=== PATIENT | female | born 1985 | race Caucasian/White ===

== ENCOUNTER → 2019-07-01 16:34 | Outpatient (CLI) | payer OTHER, SELFPAY ==
[2019-07-01 17:01] LABS: Basophils # 0.1 K/mm3 (0-0.2); Basophils % 0.7 % (0.1-2.0); Eosinophils # 0.1 K/mm3 (0.0-0.4); Eosinophils % 1.2 % (0.1-12.0); Hematocrit 42.5 % (37.0-47.0); Hemoglobin 14.3 g/dL (12.2-16.2); Lymphocytes # 2.5 K/mm3 (0.7-4.5); Lymphocytes % 36.1 % (10-50); Mean Corpuscular HGB Conc 33.6 g/dL (31.8-35.4); Mean Corpuscular Hemoglobin 30.2 pg (27.0-31.2); Mean Corpuscular Volume 89.7 fl (81-99); Mean Platelet Volume 8.3 fl (7.4-10.4); Monocytes # 0.4 K/mm3 (0.1-1.0); Monocytes % 6.4 % (1.7-9.3); Neutrophils # 3.8 K/mm3 (1.8-7.8); Neutrophils % 55.5 % (37.0-80.0); Platelet Count 277 K/mm3 (142-424); Red Blood Count 4.74 M/mm3 (4.20-5.40); Red Cell Distribution Width 12.2 % (11.5-17.5); White Blood Count 6.8 K/mm3 (4.8-10.8)
[2019-07-01 20:57] LABS: Alanine Aminotransferase 26 U/L (12-78); Albumin Level 4.2 gm/dL (3.4-5.0); Albumin/Globulin Ratio 1.3 (1.1-1.8); Alkaline Phosphatase 89 U/L (46-116); Aspartate Amino Transferase 19 U/L (15-37); Bilirubin,Total 0.3 mg/dL (0.2-1.0); Blood Urea Nitrogen 14 mg/dL (7-18); Calcium 9.2 mg/dL (8.5-10.1); Carbon Dioxide 25 mmol/L (21.0-32.0); Chloride 103 mmol/L (98-107); Chol/HDL Ratio 4.6 (1-3.5); Cholesterol 195 mg/dL (140-200); Creatinine,Serum 0.77 mg/dL (0.55-1.02); Estimated Glomerular Filt Rate 85 ml/min (>60); GFR (African American) 103 ML/MIN (>60); Globulin 3.3 gm/dl (1.3-3.2); Glucose 86 mg/dL (74-106); HDL Cholesterol 42 mg/dL (29-89); LDL Cholesterol 118 mg/dL (0-130); Sodium 140 mmol/L (136-145); T4 (Thyroxine) 9.4 ug/dl (4.7-13.3); Thyroid Stimulating Hormone 1.06 uIU/ml (0.358-3.740); Total Protein,Serum 7.5 gm/dL (6.4-8.2); Triglycerides 174 mg/dL (30-200); VLDL Cholesterol 35 mg/dL (0-40)
[2019-07-03 06:14] LABS: Vitamin D 25 Hydroxy 20.4 ng/mL (30.0-100.0)
== END ==
PROVIDERS: Visit Provider Physician Assistant
DX: F41.9 Anxiety disorder, unspecified (principal)
CPT/HCPCS: 80053; 80061; 82652; 84436; 84443; 85025

== ENCOUNTER 2019-07-17 08:00 | Outpatient (RCR) | payer OTHER, SELFPAY ==
--- NOTE | 2019-07-17 08:55 | HMH.PTOPEV ---
PT Outpatient Evaluation Rehab PT Outpatient Evaluation Start: 07/17/19 08:10 Freq: Status: Active Protocol: Document 07/17/19 08:41 LETICIA (Rec: 07/17/19 08:55 LETICIA [id number]) Electronically Signed By Gustavo Nguyen, PT 07/17/19 08:41 Outpatient Therapy Subjective History Subjective History Patient is a 34 year old female presenting to outpatient PT with reports of chronic low back pain starting approximately 10 years ago. 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 Symptoms have progressively gotten worse over the past 2 months. Pt reports elevated pain levels upon rising in the morning. She reports that she had an abdominal CT which revealed something bad in her lower back. Orders indicate possible spondylolisthesis. Unable to acces imaging at this time. Comorbidities include hx of depression/anxiety and tubal ligation. Chief Complaint Pain,Paresthesia Symptom Type Sharp,Numbness,Tingling Symptoms Relieved By Heat Symptoms Aggravated By Walking Prior Functional Limitations None Current Functional Limitations Lifting,Housework,Sleeping, Standing,Squatting,Walking Symptom Description Constant but Variable Level of pain today (0-10) 1 Pain scale - at its best (0-10) 1 Pain scale - at its worst (0-10) 6 Lumbopelvic Eval Posture Thoracic Spine Posture Standing Position Increased Kyphosis Lumbar Spine Posture Standing Position Increased Lordosis Assistive device Assistive Devices None / NA Palapation tenderness left Lumbar/Sacral Palpation Findings Tenderness Lumbar/Sacral Palpation Overall Comment PSIS 2/4 right paraspinal tenderness Yes: 2/4 Accessory Movement L4 bilateral L5 bilateral S1 bilateral Range of Motion Lumbar Spine Active Flexion Range of WFL Motion (degrees) Lumbar Spine Active Extension Range of WFL Motion (degrees) Left Lumbar Spine Lateral Flexion Active 15 Range of Motion (degrees) Right Lumbar Spine Lateral Flexion
== END 2019-07-17 08:05 | disposition home or self-care (01) ==
LOC: PT 08:00
PROVIDERS: Visit Provider Physician Assistant
DX: M54.5 Low back pain (principal)
CPT/HCPCS: 97163

== ENCOUNTER → 2020-05-23 19:47 | Outpatient (CLI) | payer OTHER, SELFPAY | PROVIDERS: Visit Provider Nurse Practitioner Family | DX: Z03.818 Encounter for observation for suspected exposure to other biological agents ruled out (principal) | CPT/HCPCS: U0003 ==

== ENCOUNTER 2020-11-05 15:55 | Emergency (ER) | payer OTHER, SELFPAY ==
[2020-11-05 16:05] VITALS: BP 126/85; PULSE 72; RESP 20; TEMP 36.9; O2SAT 100; BMI 27.3
--- NOTE | 2020-11-05 16:29 | HMH.EDUTC ---
[facility] [place] Clinical Impression: Exposure to COVID-19 virus Disposition: Home, Self-Care Condition on Discharge: Good Instructions: Preventing the Spread of Coronavirus Discharge Instructions Prescriptions: Ondansetron [Ondansetron Odt 8mg Tab] 8 mg PO TID PRN 10 Days #30 tab PRN Reason: Nausea Transmission Status: Pending to [id number] Referrals: PCP,No [Primary Care Provider] - Time of Disposition: 16:31 Medical Decision Making - Amauri Inquiry Pt receiving controlled substance: No Vital Signs: 11/05/20 16:05 Temperature 98.4 F Temperature Source Oral Pulse Rate [Right Brachial] 72 Respiratory Rate 20 Blood Pressure [Right Arm] 126/85 Blood Pressure Mean [Right Arm] 98 Blood Pressure Source [Right Arm] Automatic Cuff Blood Pressure Position [Right Arm] Sitting 02 Sat by Pulse Oximetry 100 Oxygen Delivery Method Room Air Orders (Tests/Meds): ORDERS Category Date Time Status Covid-19 Nasal PCR ([facility]) Routine Lab 11/05/20 16:08 Received [facility] [place] HPI - General Stated complaint: covid test Time Seen by Provider: 11/05/20 16:29 Mode of Arrival: Ambulatory Source of Information: Patient Limitations: No Limitations Description of Symptoms (Recalled from Triage Doc. by RN): COVID TEST D/T EXPOSURE. C/O HEADACHE, DIARRHEA, NAUSEA, DIZZINESS AND WEAKNESS X 2 DAYS HEENT Symptoms (Recalled from RN notes): No Resp Symptoms (Recalled from RN notes): No Skin Symptoms (Recalled from RN notes): No MS Symptoms (Recalled from RN notes): No Functional Status (Recalled from RN notes): WNL - History of Present Illness Provider Complaint: Exposed to COVID19 last week at work. Has felt tired for the past few days. Today has headache, fatigue, body aches, nausea. No fever. No vomiting or diarrhea. Onset (ago): day(s) (1) Relieving factors: none Exacerbating factors: none Associated symptoms: denies other symptoms Treatments prior to arrival: none - Related Data Home Medications Medication Instructions Recorded Confirmed Ergocalciferol (Vitamin D2) 50,000 unit PO QWEEK 09/09/19 09/10/19 [Drisdol] Previous Rx's Medication Instructions Recorded amoxicillin 500 mg capsule 500 mg PO Q12H 10 Days #20 cap 09/10/19 Ondansetron [Ondansetron Odt 8mg 8 mg PO TID PRN 10 Days #30 tab 11/05/20 Tab] Allergies Allergy/AdvReac Type Severity Reaction Status Date / Time No Known Allergies Allergy Verified 09/10/19 16:56 - Worker's Comp Is this a Worker's Comp case?: No [facility] History - Hepatitis A Screen Drug use history?: No High risk sexual behaviors?: No History of sexually transmitted infection?: No Currently employed?: No Childcare worker?: No Do you have indoor plumbing?: Yes Do you have electricity?: Yes Attestation statement:: This patient has been screened for Hepatitis A risk factors. I have reviewed the patient's past medical history: Yes Medical History: Reports:: Anxiety, Depression Denies:: Diabetes Mellitus Type 1, Diabetes Mellitus Type 2 Other Surgeries: Yes: No Previous Surgery, Tubal Ligation Amputation: No Fractures: No - Social History Smoking Status: Current every day smoker Tobacco Type: cigarettes # Packs/Day (cigarettes): 1 Alcohol Intake: never Substance Use Type: denies use Occupational Status: unemployed Housing: house Household Members: family, spouse - Psychiatric History Pschychiatric History:: Reports:: Anxiety, Attention Deficit Disorder, Depression Family Hx:: Coronary Artery Disease, Hypertension ROS Obtained: Yes All systems reviewed & no additional complaints - Constitutional Constitutional: Reports body ache, Reports chills, Reports headache(s), Reports malaise - Gastrointestinal Gastrointestingal: Reports: nausea Physical Exam - General General appearance: alert, in no apparent distress - Head Head exam: normocephalic - Eye Eye exam: Present: PERRL - ENT ENT exam: Present: normal orophar
[2020-11-05 16:34] VITALS: BP 126/85; PULSE 72; RESP 20; TEMP 36.9; O2SAT 100
--- NOTE | 2020-11-06 10:26 | PC.NURSE ---
pt notified of positive covid result
== END 2020-11-05 16:38 | disposition home or self-care (01) ==
PROVIDERS: Emergency Provider Physician Assistant
DX: U07.1 COVID-19 (principal); F41.8 Other specified anxiety disorders; F17.210 Nicotine dependence, cigarettes, uncomplicated
CPT/HCPCS: 99202; G0463; U0003

== ENCOUNTER → 2021-02-07 10:10 | Outpatient (CLI) | payer OTHER, SELFPAY ==
[2021-02-07 10:35] LABS: Basophils # 0.1 K/mm3 (0-0.2); Basophils % 1.2 % (0.1-2.0); Eosinophils # 0.1 K/mm3 (0.0-0.4); Eosinophils % 1.2 % (0.1-12.0); Hematocrit 47.2 % (37.0-47.0); Hemoglobin 15.7 g/dL (12.2-16.2); Lymphocytes # 2.4 K/mm3 (0.7-4.5); Lymphocytes % 28.6 % (10-50); Mean Corpuscular HGB Conc 33.3 g/dL (31.8-35.4); Mean Corpuscular Hemoglobin 30.6 pg (27.0-31.2); Mean Corpuscular Volume 91.8 fl (81-99); Mean Platelet Volume 8.2 fl (7.4-10.4); Monocytes # 0.4 K/mm3 (0.1-1.0); Monocytes % 4.5 % (1.7-9.3); Neutrophils # 5.4 K/mm3 (1.8-7.8); Neutrophils % 64.5 % (37.0-80.0); Platelet Count 250 K/mm3 (142-424); Red Blood Count 5.14 M/mm3 (4.20-5.40); Red Cell Distribution Width 12.9 % (11.5-17.5); White Blood Count 8.4 K/mm3 (4.8-10.8)
[2021-02-07 10:45] LABS: Chloride 107 mmol/L (98-107)
[2021-02-07 10:46] LABS: Potassium 4.3 mmoL/L (3.5-5.1); Sodium 141 mmol/L (136-145)
[2021-02-07 10:48] LABS: Alanine Aminotransferase 16 U/L (12-78); Anion Gap 13.3 mEq/L (5-15); Aspartate Amino Transferase 25 U/L (14-36); Bilirubin,Unconjugated 0.2 mg/dL (0.0-1.1); Blood Urea Nitrogen 16 mg/dl (7-17); Carbon Dioxide 25 mmol/L (22.0-30.0); Estimated Glomerular Filt Rate 94 ml/min (>60); GFR (African American) 114 ML/MIN (>60)
[2021-02-07 10:49] LABS: Alkaline Phosphatase 81 U/L (38-126); Bilirubin,Direct 0.2 mg/dl (0.0-0.4); Bilirubin,Indirect 0.2 mg/dL (0.0-0.9); Bilirubin,Total 0.4 mg/dl (0.2-1.3); Calcium 9.9 mg/dl (8.4-10.2); Chol/HDL Ratio 4.5 (1-3.5); Cholesterol 222 mg/dl (140-200); Glucose 102 mg/dl (74-100); HDL Cholesterol 49 mg/dl (40-60); Total Protein,Serum 8.3 g/dl (6.3-8.2); Triglycerides 183 mg/dl (30-150); VLDL Cholesterol 37 mg/dL (0-40)
[2021-02-07 11:00] LABS: Direct LDL Cholesterol 125.31 mg/dL (100-129)
[2021-02-07 11:20] LABS: Thyroid Stimulating Hormone 1.58 uIU/mL (0.465-4.68)
[2021-02-07 11:28] LABS: Free T4 (Free Thyroxine) 1.06 ng/dl (0.78-2.19)
== END ==
PROVIDERS: Visit Provider Physician Assistant
DX: R07.89 Other chest pain (principal); R06.00 Dyspnea, unspecified; R00.2 Palpitations; I11.9 Hypertensive heart disease without heart failure; E11.9 Type 2 diabetes mellitus without complications; F17.200 Nicotine dependence, unspecified, uncomplicated; F32.1 Major depressive disorder, single episode, moderate; F41.9 Anxiety disorder, unspecified; Z82.49 Family history of ischemic heart disease and other diseases of the circulatory system; Z86.16 Personal history of COVID-19
CPT/HCPCS: 36415; 80048; 80061; 80076; 84439; 84443; 85025; 93225; 93226

== ENCOUNTER → 2021-02-28 09:04 | Outpatient (CLI) | payer OTHER, SELFPAY ==
--- NOTE | 2021-02-28 | CA_ITS ---
APPROVED REPORT Exam: Exercise Treadmill Technologist: Shayy Corrigan, Ht: 5 ft 1 in Wt: 154 lbs BSA: 1.69 m2 HR: 65 bpm BP: 131/78 mmHg Stress Test Details Test: Last HR Resting HR: 78 bpm Max Heart Rate (APMHR): 183 bpm Max HR Achieved: 171 bpm Target HR (85% APMHR): 155 bpm % of APMHR: 93 Recovery HR: 89 bpm BP Resting BP: 129/77 mmHg Max BP: 160/98 mmHg Recovery BP: 117.0/70.0 mmHg ECG Medications Administered Aminophylline ( mg at ) Clinical Exercise duration: 09:05 min Highest Stage Achieved: Exercise capacity: 10.1 METs Stress ECG Conclusion Test stopped due to: Leg fatigue Symptoms: SOA is noted, leg fatigue, no chest pain Arrhythmias/Ectopy: PVC's noted ST-T Changes: <1.[address] segment changes,normal GXT Test Summary REST . . . . . . . Sitting REST . . . . . . . Standing REST 09:51 0.0 0.0 78 . 129/ 77 . . Stage 1 01:00 10.0 1.7 104 . . . . Stage 1 02:00 10.0 1.7 111 . . . . Stage 1 03:00 10.0 1.7 105 . 132/ 82 . . Stage 2 01:00 12.0 2.5 122 . . . . Stage 2 02:00 12.0 2.5 129 . . . . Stage 2 03:00 12.0 2.5 130 . 140/ 80 . . Stage 3 01:00 14.0 3.4 151 . . . . Stage 3 02:00 14.0 3.4 168 . . . . Stage 3 03:00 14.0 3.4 169 . 160/ 98 . . Stage 4 00:05 16.0 4.2 170 . . . Stop exercise at 09:05 RECOVERY 01:00 0.0 0.0 123 . . . . RECOVERY 02:00 0.0 0.0 106 . . . . RECOVERY 03:00 0.0 0.0 112 . . . . RECOVERY 04:00 0.0 0.0 91 . 124/ 74 . . RECOVERY 05:00 0.0 0.0 89 . 124/ 74 . . RECOVERY 05:34 0.0 0.0 86 . 117/ 70 . . Electronically signed by : Kwan Weller, 02/28/2021 19:02:48
--- NOTE | 2021-02-28 09:09 | CA_ITS ---
APPROVED REPORT EXAM: Comprehensive 2D, Doppler, and color-flow Echocardiogram Produce Sorter: Stephy Troy RVT Ht: 5 ft 1 in Wt: 154lbs BSA: 1.69 BP: 135/81 mmHg Indications: SOA,HX COVID,PALPS,SMOKER,ABN EKG Stress Test Details HR Max Heart Rate (APMHR): 183.293039 bpm Target HR (85% APMHR): 155.582671 bpm BP ECG Conclusion 1. The EKG portion of the exercise stress echo is negative for ischemia, patient has good exercise capacity achieved 10.1 METs of workload on treadmill, the blood pressure response to exercise was adequate, there was no exercise induced chest discomfort. 2. No obvious echocardiographic evidence of segmental wall motion abnormality with exercise to suggest underlying ischemic heart disease, preserved left ventricular systolic function. 3. Normal exercise stress echo. Electronically signed by : Kwan Weller, 02/28/2021 19:13:53
--- NOTE | 2021-02-28 09:09 | CA_ITS ---
APPROVED REPORT EXAM: Comprehensive 2D, Doppler, and color-flow Echocardiogram Online Media Director: Stephy Troy RVT Ht: 5 ft 1 in Wt: 154lbs BSA: 1.69 BP: 135/81 mmHg Indications: SOA,HX COVID,ABN EKG,SMOKER,PALPS 2D Dimensions LVOT 1.77 cm (M/F) 1.5-2.5 LA Volume 16.30 mL LA Volume Index 9.64 mL/m2 (M/F) 16-34 M-Mode Dimensions RVDd 2.26 cm (0.9-2.6) LA Diam 3.21 cm (1.9-4.0) LVDd 3.91 cm (3.5-5.7) Ao Diam 2.43 cm (2.0-3.7) LVDs 2.81 cm (3.5-5.7) IVSd 0.67 cm (0.6-1.1) PWd 0.55 cm (0.6-1.1) EF (Teich) 55.10% FS 28.10% EDV (Teich) 66.30 mL TAPSE 2.33 (<1.7) ESV (Teich) 29.80 mL LV Diastology E Decel Time 227.00 (160-240 msec) E/A Ratio 1.9 MED E' 12.20 (< 7 cm/sec) E'/MED E' Ratio 8.14 (>14) LAT E' 17.70 (<10 cm/sec) E/LAT E' Ratio 5.61 (>14) Aortic Valve AO Peak GR. 5.60 mmHg Mitral Valve MV E Max Lance. 99.00 (40-130 cm/s) MV A Velocity 52.00 (40-130 cm/s) E/A Ratio 1.92 MV Decel. Time 227.00 (160-240 ms) MV PHT 66.00 ms Pulmonary Valve PV Peak Velocity 80.00 (50-150 cm/s) Tricuspid Valve TR P. Velocity 264.00 cm/s RAP Estimate 10.00 mmHg RVSP 38.00 mmHg Left Ventricle Left atrium is normal size, left ventricle is normal size, there is no concentric left ventricular hypertrophy, visually estimated ejection fraction 55% with no regional wall motion abnormality, diastolic parameters are within normal range. Right Ventricle Right atrium and right ventricle are normal size and contractility. Aortic Valve Aortic valve is grossly normal, there is no aortic stenosis or aortic insufficiency. Mitral Valve Mitral valve grossly normal, there is trace mitral regurgitation. Tricuspid Valve Tricuspid grossly normal, there is trace tricuspid regurgitation, tricuspid regurgitation jet velocity is inadequate for calculation of the right ventricular systolic pressure. Pulmonic Valve Pulmonic valve is poorly visualized. Great Vessels Aortic root is normal size. Pericardium No significant pericardial effusion noted. Conclusion 1. Normal left ventricular size, preserved left ventricular systolic function, visually estimated ejection fraction 55% with no regional wall motion abnormality, diastolic parameters are within normal range. 2. Trace mitral and tricuspid regurgitation. 3. No significant pericardial effusion noted. Electronically signed by : Kwan Weller, 02/28/2021 19:16:00
== END ==
PROVIDERS: PCP Physician Assistant; Visit Provider Physician Assistant
DX: R07.89 Other chest pain (principal); R06.00 Dyspnea, unspecified; R00.2 Palpitations; F32.1 Major depressive disorder, single episode, moderate; F41.9 Anxiety disorder, unspecified; F17.200 Nicotine dependence, unspecified, uncomplicated; Z82.49 Family history of ischemic heart disease and other diseases of the circulatory system; Z86.16 Personal history of COVID-19
CPT/HCPCS: 93017; 93306; 93350

== ENCOUNTER → 2021-03-05 18:58 | Outpatient (CLI) | payer OTHER, SELFPAY | PROVIDERS: PCP Physician Assistant; Visit Provider Physician Assistant | DX: G47.9 Sleep disorder, unspecified (principal); R40.0 Somnolence | CPT/HCPCS: 95806 ==

== ENCOUNTER → 2021-06-03 20:16 | Outpatient (CLI) | payer OTHER, SELFPAY | PROVIDERS: Visit Provider Nurse Practitioner Family | DX: Z20.822 Contact with and (suspected) exposure to COVID-19 (principal) | CPT/HCPCS: U0003 ==

== ENCOUNTER 2022-01-27 16:07 | Emergency (ER) | payer OTHER, SELFPAY ==
[2022-01-27 16:10] VITALS: BP 142/99; PULSE 83; RESP 18; TEMP 36.6; O2SAT 99; BMI 25.0
--- NOTE | 2022-01-27 16:27 | HMH.EDUTC ---
[facility] [place] Impression: Headache, Vomiting Disposition: Home, Self-Care Condition on Discharge: Good Instructions: DI for Viral Gastroenteritis -- Adult Additional Instructions: Rest, fluids. I will call with results of upper respiratory panel. Prescriptions: Promethazine HCl 12.5 mg PO TID PRN 5 Days #10 tab PRN Reason: nausea/vomiting Transmission Status: Pending to [facility] Oseltamivir Phosphate [Tamiflu] 75 mg PO BID 5 Days #10 cap Transmission Status: Pending to [facility] Referrals: Mary Carmen Alanis PA [Primary Care Provider] - Forms: Work/School Release Time of Disposition: 16:43 Medical Decision Making - Amauri Inquiry Pt receiving controlled substance: No Vital Signs: 01/27/22 16:10 Temperature 97.9 F Temperature Source Oral Pulse Rate [Right Brachial] 83 Respiratory Rate 18 Blood Pressure [Right Arm] 142/99 H Blood Pressure Mean [Right Arm] 113 Blood Pressure Source [Right Arm] Automatic Cuff Blood Pressure Position [Right Arm] Sitting 02 Sat by Pulse Oximetry 99 Oxygen Delivery Method Room Air - Lab Data Lab results reviewed: Yes: I reviewed the patient's lab results. [facility] [place] - General Stated complaint: dizzy,V/D, Nitin, Time Seen by Provider: 01/27/22 16:37 Mode of Arrival: Ambulatory Source of Information: Patient Limitations: No Limitations Description of Symptoms (Recalled from Triage Doc. by RN): PATIENT C/O DIZZINESS, VOMITING, BODY ACHES, HEADACHE, AND CONGESTION THAT STARTED TODAY HEENT Symptoms (Recalled from RN notes): Yes Resp Symptoms (Recalled from RN notes): No Skin Symptoms (Recalled from RN notes): No MS Symptoms (Recalled from RN notes): No Functional Status (Recalled from RN notes): WNL - History of Present Illness Provider Complaint: Patient went to work this am. Had sudden onset headache, sinus pain and pressure, vomiting and diarrhea. She does not think she has had a fever. Has been exposed to COVID19. Onset (ago): hour(s) (6) Location: head, abdomen Relieving factors: none Exacerbating factors: none Associated symptoms: fever/chills, headaches, malaise, nausea/vomiting Treatments prior to arrival: none - Related Data Previous Rx's Medication Instructions Recorded Oseltamivir Phosphate [Tamiflu] 75 mg PO BID 5 Days #10 cap 01/27/22 Promethazine HCl 12.5 mg PO TID PRN 5 Days #10 tab 01/27/22 Allergies Allergy/AdvReac Type Severity Reaction Status Date / Time No Known Allergies Allergy Verified 06/03/21 17:43 - Worker's Comp Is this a Worker's Comp case?: No [facility] History - Hepatitis A Screen Drug use history?: No High risk sexual behaviors?: No History of sexually transmitted infection?: No Currently employed?: No Childcare worker?: No Do you have indoor plumbing?: Yes Do you have electricity?: Yes Attestation statement:: This patient has been screened for Hepatitis A risk factors. I have reviewed the patient's past medical history: Yes Medical History: Reports:: Anxiety, Depression Denies:: Diabetes Mellitus Type 1, Diabetes Mellitus Type 2 Other Surgeries: Yes: No Previous Surgery, Tubal Ligation Amputation: No Fractures: No - Social History Smoking Status: Current every day smoker Tobacco Type: cigarettes # Packs/Day (cigarettes): 1 Alcohol Intake: never Substance Use Type: denies use Occupational Status: unemployed Housing: house Household Members: family, spouse - Psychiatric History Pschychiatric History:: Reports:: Anxiety, Attention Deficit Disorder, Depression Family Hx:: Non-contributory ROS Obtained: Yes All systems reviewed & no additional complaints - Constitutional Constitutional: Reports body ache, Reports chills, Reports fatigue, Reports fever(s), Reports headache(s) - ENT Ears, Nose, Mouth, and Throat: Reports sore throat - Gastrointestinal Gastrointestingal: Reports: loose stools, vomiting Physical Exam - General General appearance: alert, in no a
[2022-01-27 16:29] LABS: UTC Influenza A Antigen Negative (Negative)
[2022-01-27 16:30] LABS: UTC Influenza B Antigen Negative (Negative)
[2022-01-27 16:52] VITALS: BP 142/99; PULSE 83; RESP 18; TEMP 36.6; O2SAT 99
[2022-01-27 16:53] LABS: Adenovirus,PCR Not Detected (NotDetected); Bordetella Pertussis Not Detected (NotDetected); Chlamydophila Pneumoniae, PCR Not Detected (NotDetected); Coronavirus 19, PCR Not Detected (NotDetected); Coronavirus 229E Not Detected (NotDetected); Coronavirus NL63 Not Detected (NotDetected); Coronavirus OC43 Not Detected (NotDetected); Coronovirus HKU1,PCR Not Detected (NotDetected); Human Metapneumovirus Not Detected (NotDetected); Influenza A, PCR Not Detected (NotDetected); Influenza AH1, 2009 Not Detected (NotDetected); Influenza AH1, PCR Not Detected (NotDetected); Influenza AH3,PCR Not Detected (NotDetected); Influenza B, PCR Not Detected (NotDetected); Mycoplasma Pneumoniae, PCR Not Detected (NotDetected); Parainfluenza 1, PCR Not Detected (NotDetected); Parainfluenza 2, PCR Not Detected (NotDetected); Parainfluenza 3, PCR Not Detected (NotDetected); Parainfluenza 4, PCR Not Detected (NotDetected); Respiratory Syncytial Virus Not Detected (NotDetected); Rhinovirus/Enterovirus Not Detected (NotDetected)
== END 2022-01-27 17:24 | disposition home or self-care (01) ==
PROVIDERS: Emergency Provider Physician Assistant; PCP Physician Assistant
DX: R51.9 Headache, unspecified (principal); R42 Dizziness and giddiness; F41.8 Other specified anxiety disorders; F17.210 Nicotine dependence, cigarettes, uncomplicated
CPT/HCPCS: 87581; 87632; 87798; 87804; 96372; 99213; C9803; G0463; U0003; U0005

== ENCOUNTER → 2022-03-06 13:19 | Outpatient (CLI) | payer OTHER, SELFPAY ==
[2022-03-06 19:23] LABS: Basophils # 0.1 K/mm3 (0-0.2); Basophils % 2.3 % (0.1-2.0); Eosinophils # 0.1 K/mm3 (0.0-0.4); Eosinophils % 0.9 % (0.1-12.0); Hematocrit 42.7 % (37.0-47.0); Lymphocytes # 1.7 K/mm3 (0.7-4.5); Mean Corpuscular HGB Conc 32.8 g/dL (31.8-35.4); Mean Corpuscular Hemoglobin 30.9 pg (27.0-31.2); Mean Corpuscular Volume 94.1 fl (81-99); Mean Platelet Volume 9.8 fl (7.4-10.4); Monocytes # 0.4 K/mm3 (0.1-1.0); Monocytes % 7.8 % (1.7-9.3); Neutrophils # 3.1 K/mm3 (1.8-7.8); Neutrophils % 56.8 % (37.0-80.0); Platelet Count 222 K/mm3 (142-424); Red Blood Count 4.54 M/mm3 (4.20-5.40); Red Cell Distribution Width 13.2 % (11.5-17.5); White Blood Count 5.4 K/mm3 (4.8-10.8)
[2022-03-06 19:32] LABS: Alanine Aminotransferase 18 U/L (12-78); Albumin Level 4.3 g/dl (3.5-5.0); Albumin/Globulin Ratio 1.6 (1.1-1.8); Alkaline Phosphatase 69 U/L (38-126); Anion Gap 12.6 mEq/L (5-15); Aspartate Amino Transferase 26 U/L (14-36); Blood Urea Nitrogen 14 mg/dl (7-17); Calcium 9.8 mg/dl (8.4-10.2); Carbon Dioxide 24 mmol/L (22.0-30.0); Chloride 108 mmol/L (98-107); Chol/HDL Ratio 3.1 (1-3.5); Cholesterol 183 mg/dl (140-200); Estimated Glomerular Filt Rate 94 ml/min (>60); GFR (African American) 113 ML/MIN (>60); Globulin 2.7 g/dL (1.3-3.2); Glucose 102 mg/dl (74-100); HDL Cholesterol 60 mg/dl (40-60); Potassium 4.6 mmoL/L (3.5-5.1); Sodium 140 mmol/L (136-145); Triglycerides 128 mg/dl (30-150); VLDL Cholesterol 26 mg/dL (0-40)
[2022-03-06 19:34] LABS: Bilirubin,Total < 0.1 mg/dl (0.2-1.3)
[2022-03-06 19:43] LABS: Direct LDL Cholesterol 90.14 mg/dL (100-129)
[2022-03-06 19:48] LABS: 25-OH Vitamin D, Total 35.4 ng/mL (30-100)
[2022-03-06 20:03] LABS: Thyroid Stimulating Hormone 1.02 uIU/mL (0.465-4.68)
== END ==
PROVIDERS: PCP Physician Assistant; Visit Provider Physician Assistant
DX: M79.671 Pain in right foot (principal); M79.672 Pain in left foot; Z00.00 Encounter for general adult medical examination without abnormal findings
CPT/HCPCS: 80053; 80061; 82306; 84443; 85025

== ENCOUNTER 2023-09-03 17:09 | Emergency (ER) | payer OTHER, SELFPAY ==
[2023-09-03 17:45] VITALS: BP 133/89; PULSE 79; RESP 18; TEMP 36.8; O2SAT 96; BMI 21.9
--- NOTE | 2023-09-03 18:18 | EXP.UTC ---
Discharge Plan Disposition Patient Disposition: Home, Self-Care Condition: Good Prescriptions Prescriptions: New amoxicillin 500 mg capsule 500 mg PO TID 10 Days Qty: 30 0RF benzonatate 100 mg capsule 100 mg PO TID PRN (Reason: cough) Qty: 20 0RF methylprednisolone [Medrol (Berto)] 4 mg tablets,dose pack See Rx Instructions .Route .COMPLEX 6 Days Qty: 21 0RF Rx Instructions: taper pack; fluticasone propionate [Flonase Allergy Relief] 50 mcg/actuation spray,suspension 1 - 2 spray intranasal DAILY Qty: 16 0RF Rx Instructions: administer into each nostril Referrals Follow up/Referrals: Mary Carmen Alanis PA [Primary Care Provider] - See instructions Activity Restrictions/Add. Instructions Additional Instructions/Restrictions: *Monitor Temp, Over the counter Motrin or Tylenol as directed/as needed Tylenol every 4 hours and Motrin every 6 hours (as long as your family doctor has told you that you can take it) for fever or pain. and straight to ER if unable to lower temp less than 101.0 after medication given *Warm salt water gargles may help to soothe the throat *Throat Lozenges? *Warm fluids like tea with honey may help to soothe the throat? *Sleep elevated *Humidifier/Vaporizer *Flonase 2 sprays in each nostril daily but be aware that it may take 2-3 days before you notice improvement Take medication as prescribed Follow up IMMEDIATELY for new or worsening symptoms or no Noticeable improvement over the next 48-72 hours. 911 for difficulty breathing or swallowing Clinical Impressions Clinical Impression: Otitis media Qualifiers: Otitis media type: unspecified Laterality: right Qualified Code(s): H66.91 - Otitis media, unspecified, right ear Stand Alone Forms Stand Alone Forms: Work/School Release Instructions Patient Instructions: Middle Ear Infection, DI for Nasal Congestion, DI for Sinus Headache Discharge ED Provider: Tanya Kowalski [facility] General Stated complaint: ZELAYA, cough Mode of Arrival: Ambulatory Source of Information: Patient Limitations: No Limitations Time Seen by Provider: 09/03/23 18:18 Description of Symptoms (Recalled from Triage Doc. by RN): PATIENT C/O HEADACHE, NAUSEA, AND COUGH X 3 DAYS HEENT Symptoms (Recalled from RN notes): Yes Resp Symptoms (Recalled from RN notes): Yes Skin Symptoms (Recalled from RN notes): No MS Symptoms (Recalled from RN notes): No Functional Status (Recalled from RN notes): WNL History of Present Illness Provider Complaint: Patient states that she has been having pain in her right ear, sinus pain and pressure, nausea and headache for the last 3-4 days States today her ear was hurting worse so she came in to get checked out Related Data Previous Rx's Medication Instructions Recorded amoxicillin 500 mg capsule 500 mg PO TID 10 days #30 caps 09/03/23 benzonatate 100 mg capsule 100 mg PO TID PRN cough #20 caps 09/03/23 fluticasone propionate 50 1 - 2 spray intranasal DAILY #16 09/03/23 mcg/actuation nasal grams spray,suspension (Flonase Allergy Relief) methylprednisolone 4 mg tablets in See Rx Instructions .Route 09/03/23 a dose pack (Medrol (Berto)) .COMPLEX 6 days #21 tabs Allergies Allergy/AdvReac Type Severity Reaction Status Date / Time No Known Allergies Allergy Verified 03/06/22 13:31 Worker's Comp Is this a Worker's Comp case?: [facility] Dis[facility]: The information contained in this section may have been updated after the patient was seen, as this information can be updated by other users. Medical History (Updated 09/03/23 @ 18:26 by Tanya Kowalski APRN) Abnormal EKG Anxiety Daytime somnolence Depression Dyspnea Family history of heart disease Family history of transposition of great arteries History of COVID-19 Palpitations Restless sleeper Tobacco dependence syndrome Social History Smoking Status: Current every day smoker tobacco type: c
[2023-09-03 18:25] VITALS: BP 133/89; PULSE 79; RESP 18; TEMP 36.8; O2SAT 96
== END 2023-09-03 18:28 | disposition home or self-care (01) ==
PROVIDERS: Emergency Provider Nurse Practitioner; PCP Physician Assistant
DX: H66.91 Otitis media, unspecified, right ear (principal); J01.90 Acute sinusitis, unspecified; R51.9 Headache, unspecified; R05.9 Cough, unspecified; R11.0 Nausea; F17.210 Nicotine dependence, cigarettes, uncomplicated
CPT/HCPCS: 99212; 99214; G0463

== ENCOUNTER 2023-11-25 14:01 | Emergency (ER) | payer SELFPAY ==
[2023-11-25 14:03] VITALS: BP 149/92; PULSE 107; RESP 18; TEMP 37.4; O2SAT 99; BMI 23.6
[2023-11-25 14:38] LABS: Coronavirus 19, PCR Not Detected (NotDetected); Influenza B, PCR Not Detected (NotDetected)
--- NOTE | 2023-11-25 14:42 | ED_ITS ---
Discharge Plan Disposition Patient Disposition: Home, Self-Care Condition: Fair Prescriptions Prescriptions: New prednisone 20 mg tablet 60 mg PO DAILY 3 Days Qty: 9 0RF oseltamivir [Tamiflu] 75 mg capsule 75 mg PO BID 5 Days Qty: 10 0RF albuterol sulfate 90 mcg/actuation HFA aerosol inhaler 2 inh inhalation Q4H PRN (Reason: shortness of breath or wheezing) Qty: 6.7 0RF No Action amoxicillin 500 mg capsule 500 mg PO TID 10 Days Qty: 30 0RF benzonatate 100 mg capsule 100 mg PO TID PRN (Reason: cough) Qty: 20 0RF methylprednisolone [Medrol (Berto)] 4 mg tablets,dose pack See Rx Instructions .Route .COMPLEX 6 Days Qty: 21 0RF Rx Instructions: taper pack; fluticasone propionate [Flonase Allergy Relief] 50 mcg/actuation spray,suspension 1 - 2 spray intranasal DAILY Qty: 16 0RF Rx Instructions: administer into each nostril Referrals Follow up/Referrals: Mary Carmen Alanis PA [Primary Care Provider] - See instructions Activity Restrictions/Add. Instructions Additional Instructions/Restrictions: At this time it was felt you are safe to be discharged home. If new or worsening symptoms please do not hesitate to return the emergency department. If symptoms persist please follow-up with your family doctor as you are able. Please take your medications as prescribed. It was found that you have a spot on your right lung today as discussed, please follow-up with your family doctor for continued surveillance. Clinical Impressions Clinical Impression: COPD (chronic obstructive pulmonary disease) with acute bronchitis, Influenza A, Incidental pulmonary nodule Instructions Patient Instructions: DI for Acute Bronchitis Discharge ED Provider: Danny Mantilla General Adult HPI <RADHA Cruz - Last Filed: 11/25/23 16:28> General Chief complaint: Upper Respiratory Infection Stated complaint: congestion, cough, dizziness, fever Time Seen by Provider: 11/25/23 14:42 Mode of Arrival: Ambulatory Source of Information: Patient Limitations: No Limitations Description of Symptoms (Recalled from ER Triage Doc. by RN): patient ambulatory to triage with complaints of cough, fever, body aches, and chills since sunday without relief. Reports cough has progressed into chest tightness. History of Present Illness HPI narrative: Patient presents with a 24-hour history of cough that is nonproductive however feels like razor blades drainage and congestion. Patient reports subjective fever but has not taken her temperature at home. Patient is a pack-a-day smoker however is not smoking for 2 days . Patient otherwise denies cardiac chest pain shortness of breath chills hemoptysis hematochezia melena nausea vomiting diarrhea. Related Data Previous Rx's Medication Instructions Recorded amoxicillin 500 mg capsule 500 mg PO TID 10 days #30 caps 09/03/23 benzonatate 100 mg capsule 100 mg PO TID PRN cough #20 caps 09/03/23 fluticasone propionate 50 1 - 2 spray intranasal DAILY #16 09/03/23 mcg/actuation nasal grams spray,suspension (Flonase Allergy Relief) methylprednisolone 4 mg tablets in See Rx Instructions .Route 09/03/23 a dose pack (Medrol (Berto)) .COMPLEX 6 days #21 tabs albuterol sulfate 90 mcg/actuation 2 inh inhalation Q4H PRN shortness 11/25/23 aerosol inhaler of breath or wheezing #6.7 grams oseltamivir 75 mg capsule (Tamiflu) 75 mg PO BID 5 days #10 caps 11/25/23 prednisone 20 mg tablet 60 mg PO DAILY 3 days #9 tabs 11/25/23 Allergies Allergy/AdvReac Type Severity Reaction Status Date / Time No Known Allergies Allergy Verified 03/06/22 13:31 [facility] <RADHA Cruz - Last Filed: 11/25/23 16:28> [facility] Disclaimer: The information contained in this section may have been updated after the patient was seen, as this information can be updated by other users. Medical History (Updated 11/25/23 @ 16:35 by Danny Mantilla MD) Abnormal EKG Anxiety Daytime somnolence Depression Dyspnea Family history of heart disease Family history of transposition of great arteries History of COVID-19 Palpitations Restless sleeper Tobacco dependence syndrome Social History Smoking Status: Current every day smoker tobacco type: cigarettes packs per day: 1 alcohol intake: never substance use type: denies use current occupational status: unemployed Travel in the last 8 weeks: None household members: spouse and family housing: house <RADHA Cruz - Last Filed: 11/25/23 16:28> ROS Obtained: Yes Systems reviewed as appropriate & no additional complaints except as documented Physical Exam <RADHA Cruz - Last Filed: 11/25/23 16:28> Narrative Physical exam: The patient is a well-nourished well-developed 38-year-old female who otherwise is in no acute distress General General appearance: alert and in no apparent distress Head Head exam: atraumatic and normal inspection Eye Eye exam: Present normal appearance, PERRL and EOMI ENT ENT exam: Present normal oropharynx, mucous membranes moist and other (Patient has erythema of the posterior pharynx however there is no exudate or drainage noted) Neck Neck exam: Present normal inspection, full ROM and trachea midline; Absent lymphadenopathy Chest Chest inspection: Present normal inspection and symmetric chest wall rise Respiratory Respiratory exam: Present wheezes and other (Coarse bronchial breath sounds coarse bronchial cough); Absent accessory muscle use Cardiovascular Cardiovascular exam: Present normal rhythm, tachycardia, normal heart sounds, +S1 and +S2 Abdominal Exam Abdominal exam: Present soft and normal bowel sounds; Absent tenderness, guarding or rebound Extremities Exam Extremities exam: Present normal inspection and full ROM Neurological Exam Neurological exam: Present alert, oriented X3 and CN II-XII intact Psychiatric Psychiatric exam: Present normal affect and normal mood Skin Skin exam: Present warm, dry and normal color Lymphatic Lymphatic Findings: no adenopathy Medical Decision Making <RADHA Cruz - Last Filed: 11/25/23 16:28> Medical Records Medical records reviewed: Yes I reviewed the patient's medical records. Amauri Inquiry Pt receiving controlled substance: No Vital Signs: 11/25/23 14:03 Temperature 99.4 F Temperature Source Oral Pulse Rate [Right] 107 H Respiratory Rate 18 Blood Pressure [Right Arm] 149/92 H Blood Pressure Mean [Right Arm] 111 Blood Pressure Source [Right Arm] Automatic Cuff Blood Pressure Position [Right Arm] Sitting 02 Sat by Pulse Oximetry 99 Oxygen Delivery Method Room Air Lab Data Lab results reviewed: Yes I reviewed the patient's lab results. Lab Results 11/25/23 14:10: SARS-CoV-2 (PCR) Not detected, Influenza A Untype (PCR) Detected A, Influenza Type B (PCR) Not detected Orders (Tests/Meds): ED MEDICATIONS Discontinued Medications Generic Name Dose Route Start Last Admin Trade Name Freq PRN Reason Stop Dose Admin Acetaminophen 1,000 mg 11/25/23 16:26 11/25/23 16:33 Acetaminophen 500mg Tab PO 11/25/23 16:27 1,000 mg ONCE ONE Administration Albuterol/Ipratropium 3 ml 11/25/23 15:06 11/25/23 15:26 Ipratropium/Albuterol 3 Ml Neb IH 11/25/23 15:07 3 ml ONCE ONE Administration Dexamethasone Sodium Phosphate 10 mg 11/25/23 15:06 11/25/23 15:25 Dexamethasone 4mg/Ml 1ml Vial IM 11/25/23 15:07 10 mg ONCE ONE Administration ORDERS Category Date Time Status Chest XR -- portable [XR chest portable] Stat Exams 11/25/23 15:06 Completed Rapid PCR Covid and Flu A/B Stat Lab 11/25/23 14:10 Completed Medical Decision Narrative: In summary patient is a 38-year-old female who presents to the emergency department for evaluation of cough congestion fever. Patient is hemodynamically stable upon arrival, low-grade temperature of 99.4. Physical exam reveals coarse bronchial breath sounds along with a coarse bronchial cough no end expiratory wheezes. Examination of oropharynx reveals erythema but no evidence of exudate. No cervical lymphadenopathy.. Differential diagnosis includes viral upper respiratory tract infection versus bacterial plus COPD with acute exacerbation with bronchitis. Initial workup will be conducted with hematologic labs and plain film chest x-ray. Initial interventions include IV steroids and breathing treatment. Initial workup reviewed by me shows influenza A. My personal unofficial interpretation of plain film chest x-ray shows no evidence of infiltrates however does show a right lower lobe nodule that needs follow-up with her PCP. Upon repeat evaluation patient reports subjective improvement in symptoms after breathing treatment and steroids. Given this appropriate for discharge home with prescriptions for doxycycline and a burst dose of steroids. Patient to follow-up with PCP this week or return to the ER if symptoms worsen. <Danny Mantilla MD - Last Filed: 11/25/23 16:36> Vital Signs: 11/25/23 14:03 Temperature 99.4 F Temperature Source Oral Pulse Rate [Right] 107 H Respiratory Rate 18 Blood Pressure [Right Arm] 149/92 H Blood Pressure Mean [Right Arm] 111 Blood Pressure Source [Right Arm] Automatic Cuff Blood Pressure Position [Right Arm] Sitting 02 Sat by Pulse Oximetry 99 Oxygen Delivery Method Room Air Lab Data Lab Results 11/25/23 14:10: SARS-CoV-2 (PCR) Not detected, Influenza A Untype (PCR) Detected A, Influenza Type B (PCR) Not detected Orders (Tests/Meds): ED MEDICATIONS Discontinued Medications Generic Name Dose Route Start Last Admin Trade Name Tracy PRN Reason Stop Dose Admin Acetaminophen 1,000 mg 11/25/23 16:26 11/25/23 16:33 Acetaminophen 500mg Tab PO 11/25/23 16:27 1,000 mg ONCE ONE Administration Albuterol/Ipratropium 3 ml 11/25/23 15:06 11/25/23 15:26 Ipratropium/Albuterol 3 Ml Neb IH 11/25/23 15:07 3 ml ONCE ONE Administration Dexamethasone Sodium Phosphate 10 mg 11/25/23 15:06 11/25/23 15:25 Dexamethasone 4mg/Ml 1ml Vial IM 11/25/23 15:07 10 mg ONCE ONE Administration ORDERS Category Date Time Status Chest XR -- portable [XR chest portable] Stat Exams 11/25/23 15:06 Completed Rapid PCR Covid and Flu A/B Stat Lab 11/25/23 14:10 Completed Medical Decision Narrative: In summary patient is a 38-year-old female who presents to the emergency department for evaluation of cough congestion fever. Patient is hemodynamically stable upon arrival, low-grade temperature of 99.4. Physical exam reveals coarse bronchial breath sounds along with a coarse bronchial cough no end expiratory wheezes. Examination of oropharynx reveals erythema but no evidence of exudate. No cervical lymphadenopathy.. Differential diagnosis includes viral upper respiratory tract infection versus bacterial plus COPD with acute exacerbation with bronchitis. Initial workup will be conducted with hematologic labs and plain film chest x-ray. Initial interventions include IV steroids and breathing treatment. Initial workup reviewed by me shows influenza A. My personal unofficial interpretation of plain film chest x-ray shows no evidence of infiltrates however does show a right lower lobe nodule that needs follow-up with her PCP. Upon repeat evaluation patient reports subjective improvement in symptoms after breathing treatment and steroids. Given this appropriate for discharge home with prescriptions for Tamiflu and a burst dose of steroids. Patient to follow-up with PCP this week or return to the ER if symptoms worsen. I was consulted by the ELENA, and we discussed the complexity of the problems being addressed. I approved the treatment and management plan for this patient's care in the emergency department, thus performing a substantive portion of the medical decision making. Danny Mantilla MD Critical Care <RADHA Cruz - Last Filed: 11/25/23 16:28> Critical Care Time Critical Care Time: No
--- NOTE | 2023-11-25 15:06 | XR_ITS ---
PROCEDURE INFORMATION: Exam: XR Chest Exam date and time: 11/25/2023 3:14 PM Age: 38 years old Clinical indication: Patient HX: Heavy smoker, cough. Dyspnea. TECHNIQUE: Imaging protocol: Radiologic exam of the chest. Views: 1 view. COMPARISON: CR CXR2V XR chest 2V 12/08/2018 1:24 PM FINDINGS: Lungs: Ill-defined 17 mm opacity in the right base Pleural spaces: Unremarkable. No pleural effusion. No pneumothorax. Heart/Mediastinum: Unremarkable. No cardiomegaly. Bones/joints: Unremarkable. IMPRESSION: Ill-defined 17 mm opacity in the right base may represent mild atelectasis or pneumonia.Recommend followup studies to document resolution and rule out neoplastic process
[2023-11-25] MEDS: DEXAMETHASONE 4MG/ML 1ML VIAL 10 MG IM (15:25)
[2023-11-25] MEDS: IPRATROPIUM/ALBUTEROL 3 ML NEB IH (15:26)
--- NOTE | 2023-11-25 15:44 | PC.NURSE ---
Spoke with Amaya in lab to check on nasal swab. Reports that swab with take another 30 more minutes for results
[2023-11-25 16:11] LABS: Influenza A, PCR Detected (NotDetected)
[2023-11-25] MEDS: ACETAMINOPHEN 500MG TAB 1000 MG PO (16:33)
[2023-11-25 16:43] VITALS: BP 113/75; PULSE 118; RESP 18; TEMP 37.6; O2SAT 99
== END 2023-11-25 16:44 | disposition home or self-care (01) ==
PROVIDERS: Student in an Organized Health Care Education/Training Program; Emergency Provider Emergency Medicine; PCP Physician Assistant
DX: J44.0 Chronic obstructive pulmonary disease with (acute) lower respiratory infection (principal); J10.1 Influenza due to other identified influenza virus with other respiratory manifestations; R05.9 Cough, unspecified; R50.9 Fever, unspecified; R91.1 Solitary pulmonary nodule; F17.210 Nicotine dependence, cigarettes, uncomplicated
CPT/HCPCS: 71045; 87636; 96372; 99283

== ENCOUNTER 2023-12-21 07:49 | Emergency (ER) | payer OTHER, SELFPAY ==
[2023-12-21 07:51] VITALS: BP 105/65; PULSE 116; RESP 23; TEMP 36.4; O2SAT 95; BMI 23.0
--- NOTE | 2023-12-21 07:59 | PC.NURSE ---
DR REYNOLDS AT BEDSIDE
[2023-12-21 08:00] VITALS: BP 121/81; PULSE 112; RESP 20; O2SAT 98
--- NOTE | 2023-12-21 08:06 | XR_ITS ---
FINAL REPORT CLINICAL HISTORY: Shortness of breath COMPARISON: 11/25/2023 FINDINGS: A single portable view of the chest was obtained. The heart size and pulmonary vascularity are within normal limits. The mediastinum is within normal limits. New right base opacity is worrisome for pneumonia. The bony thorax is intact. IMPRESSION: New right base opacity worrisome for pneumonia. Reviewed, Interpreted and Dictated by Duran Bucio III, MD Transcribed by Lindsay Guajardo Authenticated and [facility]
[2023-12-21 08:16] LABS: Coronavirus 19, PCR Not Detected (NotDetected); Influenza A, PCR Not Detected (NotDetected); Influenza B, PCR Not Detected (NotDetected)
--- NOTE | 2023-12-21 08:16 | HMH.EDGENADL ---
Discharge Plan Disposition Patient Disposition: Home, Self-Care Prescriptions Prescriptions: New azithromycin 250 mg tablet See Rx Instructions .ROUTE .COMPLEX Qty: 6 0RF Rx Instructions: For 250 mg dose pack: take 500 mg today (day 1), then 250 mg for 4 days (days 2-5) benzonatate 100 mg capsule 100 mg PO TID PRN (Reason: cough) 5 Days Qty: 20 0RF albuterol sulfate 90 mcg/actuation HFA aerosol inhaler 4 inh inhalation Q4H PRN (Reason: shortness of breath or wheezing) Qty: 8.5 0RF Rx Instructions: 4 puffs every 4 hours for 48 hours then as needed for shortness of breath or wheezing following cefdinir 300 mg capsule 300 mg PO BID 10 Days Qty: 20 0RF No Action promethazine-DM 6.25-15 mg/5 mL syrup 5 ml PO Q6H PRN (Reason: cough) Qty: 180 0RF benzonatate 100 mg capsule 100 mg PO TID PRN (Reason: cough) Qty: 20 0RF albuterol sulfate 90 mcg/actuation HFA aerosol inhaler 2 inh inhalation Q4H PRN (Reason: shortness of breath or wheezing) Qty: 6.7 0RF Referrals Follow up/Referrals: Mary Carmen Alanis PA [Primary Care Provider] - See instructions Monika Smart MD [Physician] - See instructions Activity Restrictions/Add. Instructions Additional Instructions/Restrictions: You have evidence of new pneumonia on your chest x-ray. It is imperative that you continue to stop smoking as discussed. Hospitalization was offered but we opted to try to manage this in an outpatient setting please return with any significant worsening symptoms and we will admit you for further management. I also given you a referral to our general purchasing agent, Dr. Smart and I recommend you follow-up with him within the next 1 to 2 weeks. It is likely that you have undiagnosed and underlying COPD which needs to be managed. Clinical Impressions Clinical Impression: CAP (community acquired pneumonia), Refractory chronic cough, Encounter for smoking cessation counseling, Tachycardia, Chest wall pain Discharge ED Provider: Vani Montenegro General Adult HPI General Chief complaint: Shortness of Breath/Dyspnea Stated complaint: cough, chest and back pain Time Seen by Provider: 12/21/23 07:58 History of Present Illness HPI narrative: Patient is a 38-year-old female presenting today with multiple complaints. Was diagnosed with the flu a month ago and was also treated for presumed COPD exacerbation. The patient does not have a definitive diagnosis of COPD but has been treated for this presumptively given her chronic cough and presenting symptoms including wheezing cough etc. She was given Tamiflu doxycycline and steroids recent treatments but has had persistent symptoms since that time particularly a cough. She continues to smoke for several weeks. But has not been smoking for the last 2 weeks. No significant fevers. She states she does have some chest pain mainly associated with coughing but has some chest discomfort. Related Data Previous Rx's Medication Instructions Recorded benzonatate 100 mg capsule 100 mg PO TID PRN cough #20 caps 09/03/23 albuterol sulfate 90 mcg/actuation 2 inh inhalation Q4H PRN shortness 11/25/23 aerosol inhaler of breath or wheezing #6.7 grams promethazine-DM 6.25 mg-15 mg/5 mL 5 ml PO Q6H PRN cough #180 mL 12/12/23 oral syrup albuterol sulfate 90 mcg/actuation 4 inh inhalation Q4H PRN shortness 12/21/23 aerosol inhaler of breath or wheezing #8.5 grams azithromycin 250 mg tablet See Rx Instructions PO .COMPLEX #6 12/21/23 tabs benzonatate 100 mg capsule 100 mg PO TID PRN cough 5 days #20 12/21/23 caps cefdinir 300 mg capsule 300 mg PO BID 10 days #20 caps 12/21/23 Allergies Allergy/AdvReac Type Severity Reaction Status Date / Time No Known Allergies Allergy Verified 12/12/23 13:09 [facility] Disclaimer: The information contained in this section may have been updated after the patient was seen, as this information can be updated by other users. Medical History Abnormal EKG Anxiety Daytime somnolence Depression Dyspnea Family history of heart disease Family history of transposition of great arteries History of COVID-19 Palpitations Restless sleeper Tobacco dependence syndrome Social History Smoking Status: Current some day smoker tobacco type: cigarettes packs per day: 1 alcohol intake: never substance use type: denies use current occupational status: unemployed Travel in the last 8 weeks: None household members: spouse and family housing: house ROS Obtained: Yes All systems reviewed & no additional complaints except as documented Physical Exam General General appearance: alert Respiratory Respiratory exam: Present normal lung sounds bilaterally and other (Actively coughing); Absent respiratory distress Cardiovascular Cardiovascular exam: Present tachycardia (Heart rate 120 on my exam) Neurological Exam Neurological exam: Present alert and oriented X3 Medical Decision Making Amauri Inquiry Pt receiving controlled substance: No Vital Signs: 12/21/23 07:51 12/21/23 08:00 Temperature 97.6 F Temperature Source Oral Pulse Rate 112 H Pulse Rate [Right] 116 H Respiratory Rate 23 20 Blood Pressure 121/81 Blood Pressure [Right Arm] 105/65 L Blood Pressure Mean 89 Blood Pressure Mean [Right Arm] 78 Blood Pressure Source [Right Arm] Automatic Cuff 02 Sat by Pulse Oximetry 95 98 Oxygen Delivery Method Room Air Lab Data Lab results reviewed: Yes I reviewed the patient's lab results. Lab Results 12/21/23 07:55: SARS-CoV-2 (PCR) Not detected, Influenza A Untype (PCR) Not detected, Influenza Type B (PCR) Not detected 12/21/23 08:41: WBC 17.2 H, RBC 3.47 L, Hgb 10.7 L, Hct 32.9 L, MCV 95.0, MCH 30.8, MCHC 32.4, RDW 12.8, Plt Count 477 H, MPV 9.0, Neut % (Auto) 83.8 H, Lymph % (Auto) 10.7, [place] % (Auto) 4.0, Eos % (Auto) 1.1, Baso % (Auto) 0.5, Neut # (Auto) 14.4 H, Lymph # (Auto) 1.8, [place] # (Auto) 0.7, Eos # (Auto) 0.2, Baso # (Auto) 0.1, Sodium 139, Potassium 3.4 L, Chloride 104, Carbon Dioxide 27, Anion Gap 11.4, BUN 9, Creatinine 0.70, Estimated Creat Clear 93, Estimated GFR 93, Est GFR ( Amer) 112, Glucose 102 H, Calcium 8.9, Total Bilirubin 0.5, AST 24, ALT 18, Alkaline Phosphatase 162 H, Total Protein 7.7, Albumin 3.8, Globulin 3.9 H, Albumin/Globulin Ratio 1.0 L 03/08/24 08:41 12/21/23 08:41 Orders (Tests/Meds): ED MEDICATIONS Generic Name Dose Route Start Last Admin Trade Name Tracy PRN Reason Stop Dose Admin Benzonatate 100 mg 12/21/23 08:15 12/21/23 08:33 Benzonatate 100mg Capsule PO 01/20/24 08:14 100 mg ONCE CODY Administration Discontinued Medications Generic Name Dose Route Start Last Admin Trade Name Tracy PRN Reason Stop Dose Admin Albuterol/Ipratropium 3 ml 12/21/23 08:11 12/21/23 08:33 Ipratropium/Albuterol 3 Ml Neb IH 12/21/23 08:12 3 ml ONCE ONE Administration Dexamethasone Sodium Phosphate 10 mg 12/21/23 08:11 12/21/23 08:33 Dexamethasone 4mg/Ml 1ml Vial IV 12/21/23 08:12 10 mg ONCE ONE Administration Lactated Ringer's 1,000 mls @ 999 mls/hr 12/21/23 08:15 12/21/23 08:32 Lactated Ringer's 1000 Ml Bag IV 12/21/23 09:15 999 mls/hr .Q1H1M CODY Administration Ketorolac Tromethamine 15 mg 12/21/23 08:11 12/21/23 08:32 Ketorolac 30mg/Ml Vial IV 12/21/23 08:12 15 mg ONCE ONE Administration ORDERS Category Date Time Status CXR --portable [XR chest portable] Stat Exams 12/21/23 08:06 Completed CBC w/Auto Diff [Complete Blood Count Auto Diff] Stat Lab 12/21/23 08:41 Results CMP [Comprehensive Metabolic Panel] Stat Lab 12/21/23 08:41 Results Rapid PCR Covid and Flu A/B Stat Lab 12/21/23 07:55 Completed Trop I [Troponin I] Stat Lab 12/21/23 08:41 Results Troponin I Q3H Lab 12/21/23 11:15 Ordered Troponin I Q3H Lab 12/21/23 14:15 Ordered Medical Decision Narrative: Patient is a 38-year-old female here with persistent cough tachycardia chest pain following a diagnosis of acute exacerbation of COPD and flu 1 month ago. Given the fact that she is significant tachycardic we will place an IV and give IV fluids addition we will get a chest x-ray to make sure she does not have a developing or worsening pneumonia. Will get a troponin to make sure that there is not any underlying myocarditis probably her chest pain is most likely secondary to his chest wall discomfort from the chronic coughing and musculoskeletal in nature. Largely her treatment will be symptomatic and will again give her a dose of steroids breathing treatment and Tessalon Perles. She is already had atypical coverage which would have covered adequately pertussis which would have been on the differential. I will add Sudafed and an antihistamine onto her regimen for chronic cough if remainder of her workup is negative which anticipate that will be. Will reassess after her workup and treatment is complete. Reassessment 9:39 AM patient feeling much better heart rate in the 90s oxygen saturation is still 98% on room air. She does have an elevated white blood cell count in the setting of tachycardia earlier did meet criteria for sepsis at that point but appears much better. No evidence of endorgan damage. Hospitalization was considered and was offered to the patient. However she is young is well-appearing not requiring oxygen not any respiratory distress and outpatient management is also reasonable option if she has close follow-up. I have given her a follow-up with our general purchasing agent. She was given a prescription of Omnicef and azithromycin as an escalation of antibiotic therapy. She understands that oral antibiotics may not be adequate and that she will return with any worsening symptoms. Patient was discharged in improved and stable condition. Critical Care Critical Care Time Critical Care Time: Yes Attestation: On 12/21/23, the high probability of a clinically significant, sudden or life threatening deterioration of the following system(s) required my full and direct attention, intervention and personal management. The time I documented below is in addition to time spent performing reported procedures but includes the following listed in this critical care notation. Total Time Total Critical Care Time: 35
--- NOTE | 2023-12-21 08:21 | PC.NURSE ---
XR AT BEDSIDE
[2023-12-21] MEDS: LACTATED RINGERS 1000ML 1,000 ML 999 ML IV (08:32)
[2023-12-21] MEDS: KETOROLAC 30MG/ML VIAL 15 MG IV (08:32)
--- NOTE | 2023-12-21 08:32 | ECG_ITS ---
APPROVED REPORT Exam: Resting ECG HR:82 bpm ECG Measurements Heart Rate 82 AXES FL 138 P 55 QRSd 79 QRS 69 QT 344 T 70 QTc 383 Conclusion SINUS RHYTHM NORMAL ECG UNCONFIRMED REPORT Electronically signed by : Ervin Montenegro, 12/21/2023 15:45:41
[2023-12-21] MEDS: BENZONATATE 100MG CAPSULE 100 MG PO (08:33)
[2023-12-21] MEDS: IPRATROPIUM/ALBUTEROL 3 ML NEB IH (08:33)
[2023-12-21] MEDS: DEXAMETHASONE 4MG/ML 1ML VIAL 10 MG IV (08:33)
[2023-12-21 08:54] LABS: Basophils # 0.1 K/mm3 (0-0.2); Basophils % 0.5 % (0.1-2.0); Eosinophils # 0.2 K/mm3 (0.0-0.4); Eosinophils % 1.1 % (0.1-12.0); Hematocrit 32.9 % (37.0-47.0); Hemoglobin 10.7 g/dL (12.2-16.2); Lymphocytes # 1.8 K/mm3 (0.7-4.5); Lymphocytes % 10.7 % (10-50); Mean Corpuscular HGB Conc 32.4 g/dL (31.8-35.4); Mean Corpuscular Hemoglobin 30.8 pg (27.0-31.2); Monocytes # 0.7 K/mm3 (0.1-1.0); Neutrophils # 14.4 K/mm3 (1.8-7.8); Neutrophils % 83.8 % (37.0-80.0); Platelet Count 477 K/mm3 (142-424); Red Blood Count 3.47 M/mm3 (4.20-5.40); Red Cell Distribution Width 12.8 % (11.5-17.5); White Blood Count 17.2 K/mm3 (4.8-10.8)
[2023-12-21 08:56] LABS: MANUAL DIFFERENTIAL MANUAL DIFFERENTIAL (MANUAL DIFF)
--- NOTE | 2023-12-21 09:04 | PC.NURSE ---
ROUNDED ON PT, CALL LIGHT WITHIN REACH. WARM BLANKET PROVIDED. NO NEEDS VOICED
[2023-12-21 09:12] LABS: Alanine Aminotransferase 18 U/L (12-78); Albumin Level 3.8 g/dl (3.5-5.0); Alkaline Phosphatase 162 U/L (38-126); Anion Gap 11.4 mEq/L (5-15); Aspartate Amino Transferase 24 U/L (14-36); Bilirubin,Total 0.5 mg/dl (0.2-1.3); Blood Urea Nitrogen 9 mg/dl (7-17); Calcium 8.9 mg/dl (8.4-10.2); Carbon Dioxide 27 mmol/L (22.0-30.0); Chloride 104 mmol/L (98-107); Creatinine Clearance Estimated 93 mL/min (50-200); Estimated Glomerular Filt Rate 93 ml/min (>60); GFR (African American) 112 ML/MIN (>60); Globulin 3.9 g/dL (1.3-3.2); Glucose 102 mg/dl (74-100); Potassium 3.4 mmoL/L (3.5-5.1); Sodium 139 mmol/L (136-145); Total Protein,Serum 7.7 g/dl (6.3-8.2)
--- NOTE | 2023-12-21 09:34 | PC.NURSE ---
DR REYNOLDS AT BEDSIDE TO REEVALUATE PT
[2023-12-21 09:38] LABS: Lymphocytes % 8 % (10-50); Monocytes % 5 % (2-9); Neutrophils % 73 % (42-76); Total Cells Counted 100
[2023-12-21 09:40] VITALS: BP 95/56; PULSE 90; RESP 18; TEMP 36.5; O2SAT 97
[2023-12-21 09:41] LABS: Platelet Estimate Slight Increase; RBC Morphology Normal
[2023-12-21 09:43] LABS: Troponin I < 0.01 ng/ml (0.00-0.034)
== END 2023-12-21 09:48 | disposition home or self-care (01) ==
PROVIDERS: Emergency Provider Student in an Organized Health Care Education/Training Program; PCP Physician Assistant
DX: J18.9 Pneumonia, unspecified organism (principal); R07.89 Other chest pain; R05.3 Chronic cough; R00.0 Tachycardia, unspecified; F17.210 Nicotine dependence, cigarettes, uncomplicated; Z71.6 Tobacco abuse counseling
CPT/HCPCS: 71045; 80053; 84484; 85007; 85025; 87636; 93005; 96361; 96374; 96375; 99285

== ENCOUNTER 2023-12-24 16:57 | Inpatient (IN) | payer OTHER, SELFPAY ==
[2023-12-24] VITALS (10 sets, daily range): BP systolic 109–145; BP diastolic 30–92; PULSE 63–91; RESP 16–20; TEMP 36.4–36.7; O2SAT 96–100; BMI 23.2; BMI 24.2
--- NOTE | 2023-12-24 17:10 | ED_ITS ---
<Statement entered by Vani Montenegro MD - 12/24/23 22:51> I was consulted by the ELENA, and we discussed the complexity of the problems being addressed. I approved the treatment and management plan for this patient's care in the emergency department, thus performing a substantive portion of the medical decision making. Vani Montenegro MD, ANNA, FACEP Discharge Plan Disposition Patient Disposition: Admitted Condition: Serious Chief Complaint: PAIN Prescriptions Prescriptions: No Action promethazine-DM 6.25-15 mg/5 mL syrup 5 ml PO Q6H PRN (Reason: cough) Qty: 180 0RF azithromycin 250 mg tablet See Rx Instructions .ROUTE .COMPLEX Qty: 6 0RF Rx Instructions: For 250 mg dose pack: take 500 mg today (day 1), then 250 mg for 4 days (days 2-5) benzonatate 100 mg capsule 100 mg PO TID PRN (Reason: cough) 5 Days Qty: 20 0RF albuterol sulfate 90 mcg/actuation HFA aerosol inhaler 4 inh inhalation Q4H PRN (Reason: shortness of breath or wheezing) Qty: 8.5 0RF Rx Instructions: 4 puffs every 4 hours for 48 hours then as needed for shortness of breath or wheezing following cefdinir 300 mg capsule 300 mg PO BID 10 Days Qty: 20 0RF benzonatate 100 mg capsule 100 mg PO TID PRN (Reason: cough) Qty: 20 0RF albuterol sulfate 90 mcg/actuation HFA aerosol inhaler 2 inh inhalation Q4H PRN (Reason: shortness of breath or wheezing) Qty: 6.7 0RF Referrals Follow up/Referrals: Mary Carmen Alanis PA [Primary Care Provider] - See instructions Clinical Impressions Clinical Impression: Right lower lobe pneumonia, Sepsis without septic shock Discharge ED Provider: Vani Montenegro General Adult HPI General Chief complaint: PAIN Stated complaint: pneu, COPD+ body aches SOA Time Seen by Provider: 12/24/23 17:03 History of Present Illness HPI narrative: Patient Mile presents to the emergency department with initially a chief complaint of right-sided back pain . Patient has had almost a month of respiratory infections/symptoms that began with an influenza diagnosis in the first part of November. She then presented back with persistent cough and constitutional symptoms of malaise body aches. She was found to be septic and offered admission however she declined on December 20. She was given a prescription for azithromycin and Omnicef and discharged home at her request. Patient has rested over the weekend but has really felt like she has not had any improvement in after going to work today she feels significant amount of pain in the right side of her posterior rib cage/low back. Is worse with cough but hurts all the time. Patient denies cardiac type chest pain subjective fever chills hemoptysis hematochezia melena nausea vomiting diarrhea. Related Data Previous Rx's Medication Instructions Recorded benzonatate 100 mg capsule 100 mg PO TID PRN cough #20 caps 09/03/23 albuterol sulfate 90 mcg/actuation 2 inh inhalation Q4H PRN shortness 11/25/23 aerosol inhaler of breath or wheezing #6.7 grams promethazine-DM 6.25 mg-15 mg/5 mL 5 ml PO Q6H PRN cough #180 mL 12/12/23 oral syrup albuterol sulfate 90 mcg/actuation 4 inh inhalation Q4H PRN shortness 12/21/23 aerosol inhaler of breath or wheezing #8.5 grams azithromycin 250 mg tablet See Rx Instructions PO .COMPLEX #6 12/21/23 tabs benzonatate 100 mg capsule 100 mg PO TID PRN cough 5 days #20 12/21/23 caps cefdinir 300 mg capsule 300 mg PO BID 10 days #20 caps 12/21/23 Allergies Allergy/AdvReac Type Severity Reaction Status Date / Time No Known Allergies Allergy Verified 12/12/23 13:09 [facility] Disclaimer: The information contained in this section may have been updated after the patient was seen, as this information can be updated by other users. Medical History Abnormal EKG Anxiety Daytime somnolence Depression Dyspnea Family history of heart disease Family history of transposition of great arteries History of COVID-19 Palpitations Restless sleeper Tobacco dependence syndrome Social History Smoking Status: Current every day smoker tobacco type: cigarettes packs per day: 1 alcohol intake: never substance use type: denies use current occupational status: unemployed Travel in the last 8 weeks: None household members: spouse and family housing: house ROS Obtained: Yes Systems reviewed as appropriate & no additional complaints except as documented Physical Exam General General appearance: alert and in no apparent distress Head Head exam: atraumatic and normal inspection Eye Eye exam: Present normal appearance, PERRL and EOMI ENT ENT exam: Present normal exam, normal oropharynx and mucous membranes moist Neck Neck exam: Present normal inspection, full ROM and trachea midline; Absent lymphadenopathy Chest Chest inspection: Present normal inspection and symmetric chest wall rise Respiratory Respiratory exam: Present normal lung sounds bilaterally; Absent accessory muscle use Cardiovascular Cardiovascular exam: Present regular rate, normal rhythm, normal heart sounds, +S1 and +S2 Abdominal Exam Abdominal exam: Present soft and normal bowel sounds; Absent tenderness, guarding or rebound Extremities Exam Extremities exam: Present normal inspection and full ROM Neurological Exam Neurological exam: Present alert, oriented X3 and CN II-XII intact Psychiatric Psychiatric exam: Present normal affect and normal mood Skin Skin exam: Present warm, dry and normal color Lymphatic Lymphatic Findings: no adenopathy Medical Decision Making Medical Records Medical records reviewed: Yes I reviewed the patient's medical records. [place] Inquiry Pt receiving controlled substance: No Vital Signs: 12/24/23 16:58 12/24/23 17:14 12/24/23 17:30 Temperature 98.1 F Temperature Source Oral Pulse Rate 91 H 76 Pulse Rate [Left Radial] 78 Respiratory Rate 16 Blood Pressure 122/86 129/30 L Blood Pressure [Right Arm] 122/86 Blood Pressure Mean [Right Arm] 98 02 Sat by Pulse Oximetry 96 98 98 Oxygen Delivery Method Room Air 12/24/23 18:00 12/24/23 18:00 12/24/23 18:01 Temperature Temperature Source Pulse Rate 74 74 78 Pulse Rate [Left Radial] Respiratory Rate Blood Pressure 120/77 Blood Pressure [Right Arm] Blood Pressure Mean [Right Arm] 02 Sat by Pulse Oximetry 100 Oxygen Delivery Method Room Air 12/24/23 18:17 Temperature Temperature Source Pulse Rate Pulse Rate [Left Radial] Respiratory Rate Blood Pressure 145/92 H Blood Pressure [Right Arm] Blood Pressure Mean [Right Arm] 02 Sat by Pulse Oximetry 99 Oxygen Delivery Method Room Air Lab Data Lab results reviewed: Yes I reviewed the patient's lab results. Lab Results 12/24/23 17:18: WBC 12.0 H, RBC 3.67 L, Hgb 11.0 L, Hct 33.9 L, MCV 92.4, MCH 29.8, MCHC 32.3, RDW 13.3, Plt Count 588 H, MPV 8.0, Neut % (Auto) 74.5, Lymph % (Auto) 18.1, [place] % (Auto) 4.7, Eos % (Auto) 1.8, Baso % (Auto) 0.8, Neut # (Auto) 8.9 H, Lymph # (Auto) 2.2, [place] # (Auto) 0.6, Eos # (Auto) 0.2, Baso # (Auto) 0.1, PT 11.0, INR 1.02, D-Dimer 1.62 H, Sodium 138, Potassium 3.5, Chloride 105, Carbon Dioxide 29, Anion Gap 7.5, BUN 14, Creatinine 0.60, Estimated Creat Clear 110, Estimated GFR 111, Est GFR ( Amer) 134, Glucose 81, Calcium 9.2, Procalcitonin 0.063, Serum HCG, Qual Negative 12/24/23 17:18 12/24/23 17:18 Orders (Tests/Meds): ED MEDICATIONS Generic Name Dose Route Start Last Admin Trade Name Freq PRN Reason Stop Dose Admin Piperacillin Sod/Tazobactam 50 mls @ 100 mls/hr 12/24/23 17:30 12/24/23 18:21 Sod 3.375 gm/ Sodium Chloride IV 01/03/24 17:29 100 mls/hr Q6H CODY Administration Miscellaneous 1 each 12/24/23 17:30 12/24/23 17:56 Vancomycin Consult Request NOTAPPLIC 01/23/24 17:29 1 each CONSULT PHARMACY CODY Administration Sodium Chloride 10 ml 12/24/23 17:54 12/24/23 17:57 Sodium Chloride 0.9% 10ml Syr (Rad Only) IV 01/23/24 17:53 10 ml NEEDED PRN Administration Maintain IV Site Discontinued Medications Generic Name Dose Route Start Last Admin Trade Name Freq PRN Reason Stop Dose Admin Acetaminophen 1,000 mg 12/24/23 17:16 12/24/23 17:54 Acetaminophen 1,000mg/100ml Vial IV 12/24/23 17:17 1,000 mg ONCE ONE Administration Albuterol/Ipratropium 3 ml 12/24/23 17:18 12/24/23 17:59 Ipratropium/Albuterol 3 Ml Neb IH 12/24/23 17:19 3 ml ONCE ONE Administration Vancomycin HCl 1,000 mg/ 250 mls @ 125 mls/hr 12/24/23 17:45 12/24/23 19:01 Sodium Chloride IV 12/24/23 19:44 125 mls/hr ONCE ONE Administration Iopamidol 75 ml 12/24/23 17:54 12/24/23 17:57 Iopamidol-370 (76%);100ml Bottle IV 12/24/23 17:55 75 ml ONCE ONE Administration Ketorolac Tromethamine 15 mg 12/24/23 17:16 12/24/23 17:53 Ketorolac 30mg/Ml Vial IV 12/24/23 17:17 15 mg ONCE ONE Administration Sodium Chloride 50 ml 12/24/23 17:54 12/24/23 17:57 0.9 % Sodium Chloride 50 Ml Vial IV 12/24/23 17:55 50 ml ONCE ONE Administration ORDERS Category Date Time Status CTA Chest [CT angio chest PE protocol] Stat Cat Scan 12/24/23 17:20 Completed BMP [Basic Metabolic Panel] Stat Lab 12/24/23 17:18 Completed CBC w/Auto Diff [Complete Blood Count Auto Diff] Stat Lab 12/24/23 17:18 Completed D-Dimer Stat Lab 12/24/23 17:18 Completed HCG Qualitative, Serum Stat Lab 12/24/23 17:18 Completed INR [Prothrombin Time INR] Stat Lab 12/24/23 17:18 Completed Procalcitonin Stat Lab 12/24/23 17:18 Completed Blood Culture Stat Micro 12/24/23 18:08 Received Medical Decision Narrative: In summary patient is a 38-year-old female who presents to the emergency department for evaluation of noncardiac right-sided chest pain. Patient is hemodynamically stable satting at 96% on room air upon arrival, and afebrile currently. Physical exam is remarkable for tenderness to palpation in the right CVA area along with dullness to percussion in the right CVA area. Patient now is approximately 4 weeks post influenza with progressive respiratory symptoms. Differential diagnosis includes PE pneumonia neoplasm other neoplastic process. Initial workup will be conducted with hematologic labs CTA PE protocol. Initial interventions include crystalloid bolus Toradol Tylenol and IV opiates. Initial workup reviewed by me shows a still elevated white count but improved from her previous visit. Positive procalcitonin. My personal informal interpretation of her CTA PE protocol shows no thrombus but does show a dense consolidation in the right lower lobe consistent with pneumonia but neoplasm is not excluded. Upon repeat evaluation patient did have improved pain control with IV opiates. I discussed patient with our with our supervisor title who would like to potentially bronch tomorrow and thus I consulted the hospitalist team about the patient management and they have graciously agreed to accept for admission Critical Care Critical Care Time Critical Care Time: Yes Attestation: On 12/24/23, the high probability of a clinically significant, sudden or life threatening deterioration of the following system(s) required my full and direct attention, intervention and personal management. The time I documented below is in addition to time spent performing reported procedures but includes the following listed in this critical care notation. Total Time Total Critical Care Time: 30
--- NOTE | 2023-12-24 17:20 | CT_ITS ---
PROCEDURE INFORMATION: Exam: CTA Chest With Contrast Exam date and time: 12/24/2023 4:48 PM Age: 38 years old Clinical indication: Pain; Right-sided; Additional info: Pneumonia, right chest pain TECHNIQUE: Imaging protocol: Computed tomographic angiography of the chest with contrast. Exam focused on the arteries. 3D rendering (Not supervised by radiologist): MIP and/or 3D reconstructed images were created by the technologist. Radiation optimization: All CT scans at this facility use at least one of these dose optimization techniques: automated exposure control; mA and/or kV adjustment per patient size (includes targeted exams where dose is matched to clinical indication); or iterative reconstruction. Contrast material: ISOVUE 370; Contrast volume: 75 ml; Contrast route: INTRAVENOUS (IV); COMPARISON: CR XR CHEST PORTABLE 12/21/2023 8:17 AM FINDINGS: Pulmonary arteries: Normal. No pulmonary emboli. Aorta: Unremarkable. No aortic aneurysm. No aortic dissection. Lungs: Dense right lower lobe consolidation. Left lower lobe atelectasis. Calcified granuloma in the left lower lobe. Pleural spaces: Trace right pleural effusion. Heart: Unremarkable. No cardiomegaly. No pericardial effusion. Lymph nodes: Calcified mediastinal and left hilar lymph nodes. No adenopathy. Liver: Hepatic steatosis with hepatomegaly. Calcified granuloma in the liver dome. Bones/joints: Unremarkable. No acute fracture. Soft tissues: Unremarkable. IMPRESSION: 1. No evidence of a pulmonary embolism. 2. Dense right lower lobe consolidation appears consistent with pneumonia. Recommend follow-up CT after treatment to exclude a neoplastic process. 3. Trace right pleural effusion. 4. Prior granulomatous disease.
[2023-12-24 17:29] LABS: Chloride 105 mmol/L (98-107); Potassium 3.5 mmoL/L (3.5-5.1); Sodium 138 mmol/L (136-145)
[2023-12-24 17:32] LABS: Anion Gap 7.5 mEq/L (5-15); Blood Urea Nitrogen 14 mg/dl (7-17); Calcium 9.2 mg/dl (8.4-10.2); Carbon Dioxide 29 mmol/L (22.0-30.0); Creatinine Clearance Estimated 110 mL/min (50-200); Estimated Glomerular Filt Rate 111 ml/min (>60); GFR (African American) 134 ML/MIN (>60); Glucose 81 mg/dl (74-100)
[2023-12-24 17:38] LABS: INR 1.02 (0.9-1.1)
[2023-12-24 17:47] LABS: Basophils # 0.1 K/mm3 (0-0.2); Basophils % 0.8 % (0.1-2.0); Eosinophils # 0.2 K/mm3 (0.0-0.4); Eosinophils % 1.8 % (0.1-12.0); Hematocrit 33.9 % (37.0-47.0); Lymphocytes # 2.2 K/mm3 (0.7-4.5); Lymphocytes % 18.1 % (10-50); Mean Corpuscular HGB Conc 32.3 g/dL (31.8-35.4); Mean Corpuscular Hemoglobin 29.8 pg (27.0-31.2); Mean Corpuscular Volume 92.4 fl (81-99); Monocytes # 0.6 K/mm3 (0.1-1.0); Monocytes % 4.7 % (1.7-9.3); Neutrophils # 8.9 K/mm3 (1.8-7.8); Neutrophils % 74.5 % (37.0-80.0); Platelet Count 588 K/mm3 (142-424); Red Blood Count 3.67 M/mm3 (4.20-5.40); Red Cell Distribution Width 13.3 % (11.5-17.5)
--- NOTE | 2023-12-24 17:50 | PC.NURSE ---
respiratory at bs given pt breathing treatment
[2023-12-24 17:51] LABS: D-Dimer 1.62 ug/mL (0.0-0.5)
--- NOTE | 2023-12-24 17:51 | PC.NURSE ---
Pt gone to RAD
[2023-12-24] MEDS: KETOROLAC 30MG/ML VIAL 15 MG IV (17:53)
[2023-12-24] MEDS: ACETAMINOPHEN 1,000MG/100ML VIAL 1000 MG IV (17:54)
[2023-12-24] MEDS: VANCOMYCIN CONSULT REQUEST 1 EACH NOTAPPLIC (17:56)
[2023-12-24] MEDS: SODIUM CHLORIDE 0.9% 10ML SYR (RAD ONLY) 10 ML IV (17:57)
[2023-12-24] MEDS: IOPAMIDOL-370 (76%);100ML BOTTLE 75 ML IV (17:57)
[2023-12-24] MEDS: 0.9 % SODIUM CHLORIDE 50 ML VIAL IV (17:57)
[2023-12-24] MEDS: IPRATROPIUM/ALBUTEROL 3 ML NEB IH ×2 (17:59→23:24)
[2023-12-24 18:04] LABS: Procalcitonin 0.063 ng/mL (0.0-2.0)
[2023-12-24] MEDS: PIPERCILLIN/TAZO 3.375 GM in 0.9 % SODIUM CHLORIDE 50 ML IV ×2 (18:21→23:07)
[2023-12-24 18:23] LABS: HCG Qualitative, Serum Negative (Negative)
--- NOTE | 2023-12-24 18:24 | PC.NURSE ---
Rounded on pt. Warm blanket provided. No other needs voiced and call light within reach.
[2023-12-24] MEDS: VANCOMYCIN HCL 1,000 MG in 0.9 % SODIUM CHLORIDE 250 ML 125 MG IV (19:01)
--- NOTE | 2023-12-24 19:48 | PC.NURSE ---
Mid level on phone with hospitalist
--- NOTE | 2023-12-24 20:10 | PC.NURSE ---
Attempted to call report, rn to call back
--- NOTE | 2023-12-24 20:23 | PC.NURSE ---
Report to Felicity
--- NOTE | 2023-12-24 20:39 | EXP.HP ---
History of Present Illness *Admission Date: 12/24/23 *Reason for visit:: SOB. CP *History of present illness: This is a 38 yo F with PMHx of COPD, former recent smoker, pulmonary nodule, depression and anxiety presented to the emergency department with initially a chief complaint of right-sided back pain . Patient reported almost a month of respiratory infections/symptoms that began with an influenza diagnosis in the first part of November. She then presented back with persistent cough and constitutional symptoms of malaise body aches. She was found to be septic and offered admission however she declined on December 20. She was given a prescription for azithromycin and Omnicef and discharged home at her request. Patient has rested over the weekend but has really felt like she has not had any improvement in after going to work today she feels significant amount of pain in the right side of her posterior rib cage/low back. Is worse with cough but hurts all the time. Patient denies cardiac type chest pain subjective fever chills hemoptysis hematochezia melena nausea vomiting diarrhea. Admitted for treatment. [facility] Disclaimer: The information contained in this section may have been updated after the patient was seen, as this information can be updated by other users. Medical History (Updated 12/25/23 @ 04:09 by Soto Tao APRN) COPD (chronic obstructive pulmonary disease) Family history of transposition of great arteries Abnormal EKG Palpitations Restless sleeper Daytime somnolence Family history of heart disease Tobacco dependence syndrome History of COVID-19 Dyspnea Depression Anxiety Social History Smoking Status: Current every day smoker tobacco type: cigarettes packs per day: 1 alcohol intake: never substance use type: denies use current occupational status: unemployed Travel in the last 8 weeks: None household members: spouse and family housing: house Review of Systems Review of Systems Review of systems:: pertinent systems reviewed and negative unless documented below Meds Home Medications and Allergies Home Medications Medication Instructions Recorded Confirmed Type benzonatate 100 mg capsule 100 mg PO TID PRN cough #20 caps 09/03/23 12/24/23 Rx azithromycin 250 mg tablet See Rx Instructions .Route 12/24/23 12/24/23 History .COMPLEX pneumonia cefdinir 300 mg capsule 300 mg PO BID pneumonia 12/24/23 12/24/23 History albuterol sulfate 90 mcg/actuation 4 inh inhalation Q4H PRN Shortness 12/25/23 12/24/23 History aerosol inhaler Of Breath Or Wheezing fhtvnig-[id number]-ldddskvq 250 1 tab PO DAILY 12/25/23 12/25/23 History mg-250 mg-65 mg tablet (Excedrin Extra Strength) cetirizine 10 mg tablet 10 mg PO DAILY 12/25/23 12/25/23 History melatonin 5 mg tablet 5 mg PO HS 12/25/23 12/25/23 History New Prescriptions to Start Prescriptions: Allergies Allergy/AdvReac Type Severity Reaction Status Date / Time No Known Allergies Allergy Verified 12/24/23 20:26 Exam Data for Last 24 hours Vital signs and Labs for Last 24 Hours: Temp Pulse Resp BP Pulse Ox O2 Del Method 98.1 F 83 20 132/90 99 Room Air 12/24/23 20:21 12/24/23 20:21 12/24/23 20:21 12/24/23 20:21 12/24/23 18:17 12/24/23 20:21 Laboratory Results - last 24 hr 12/24/23 17:18: WBC 12.0 H, RBC 3.67 L, Hgb 11.0 L, Hct 33.9 L, MCV 92.4, MCH 29.8, MCHC 32.3, RDW 13.3, Plt Count 588 H, MPV 8.0, Neut % (Auto) 74.5, Lymph % (Auto) 18.1, Sunflower % (Auto) 4.7, Eos % (Auto) 1.8, Baso % (Auto) 0.8, Neut # (Auto) 8.9 H, Lymph # (Auto) 2.2, Sunflower # (Auto) 0.6, Eos # (Auto) 0.2, Baso # (Auto) 0.1, PT 11.0, INR 1.02, D-Dimer 1.62 H, Sodium 138, Potassium 3.5, Chloride 105, Carbon Dioxide 29, Anion Gap 7.5, BUN 14, Creatinine 0.60, Estimated Creat Clear 110, Estimated GFR 111, Est GFR ( Amer) 134, Glucose 81, Calcium 9.2, Procalcitonin 0.063, Serum HCG, Qual Negative I & O for Last 24 hours: Intake & Output 12/21/23 12/22/23 12/23/23 12/24/23 22:59 22:59 23:59 23:59 Weight 55.792 kg Constitutional Constitutional: mild distress, chronically ill appearing and cooperative *Routine HEENT Exam Head: Present normocephalic and atraumatic Eye: Present EOMI, PERRL and normal accommodation ENT: Present mucous membranes moist *Routine Neck Exam Neck: Present supple, full ROM and trachea midline *Routine Respiratory Exam Respiratory: Present CTA bilaterally, wheezes, diminished air movement and normal respiratory effort; Absent respiratory distress *Routine Cardiovascular Exam Cardiovascular: Present RRR, Normal S1 and Normal S2 *Routine Abdominal Exam Abdominal: Present soft and normoactive bowel sounds; Absent tenderness or distended *Routine Rectal Exam Rectal:: deferred *Routine Genitalia Exam Genitalia:: deferred *Routine Extremities Exam Extremities: Present full ROM and pulses intact; Absent cyanosis, clubbing or edema *Routine Skin Exam Skin: Present intact; Absent cyanosis, erythema or rash *Routine Neurological Exam Neurological: Present alert, oriented X3, normal reflexes, moving all extremities and normal speech Routine Psychiatric Exam Psychiatric: Present cooperative, good judgment and anxious H&P: Result Imaging and Cardiology CT scan - chest: Status: image reviewed by me, Preliminary report and final report Assessment and Plan *Assessment and plan (1) Sepsis without septic shock: Status: Acute Category: Medical Code(s): A41.9 - Sepsis, unspecified organism (2) Right lower lobe pneumonia: Status: Acute Qualifiers: Pneumonia type: due to unspecified organism Qualified Code(s): J18.9 - Pneumonia, unspecified organism Category: Medical Code(s): J18.9 - Pneumonia, unspecified organism (3) COPD (chronic obstructive pulmonary disease): Status: Acute Qualifiers: COPD type: unspecified COPD Qualified Code(s): J44.9 - Chronic obstructive pulmonary disease, unspecified Category: Medical Code(s): J44.9 - Chronic obstructive pulmonary disease, unspecified (4) Anxiety: Status: Chronic Category: Medical Code(s): F41.9 - Anxiety disorder, unspecified (5) Depression: Status: Chronic Qualifiers: Active/Remission status: currently active Depression Type: major depressive disorder Major depression episode severity: moderate Major depression recurrence: single episode Qualified Code(s): F32.1 - Major depressive disorder, single episode, moderate Category: Medical Code(s): F32.9 - Major depressive disorder, single episode, unspecified Plan 38 yo F with PMHx of COPD, former recent smoker, pulmonary nodule, depression and anxiety presented to the emergency department with initially a chief complaint of right-sided back pain . Diagnosed with influenza last nov. Later, she was found to be septic and offered admission however she declined on December 20. Today, initial workup reviewed by me shows a still elevated white count but improved from her previous visit. Positive procalcitonin. CTA PE protocol shows no thrombus but does show a dense consolidation in the right lower lobe consistent with pneumonia but neoplasm is not excluded. Imaging reviewed. Upon repeat evaluation patient did have improved pain control with IV opiates. Consulted with pulmonology and ER for admission. plan as follow: -Sepsis without septic shock, secondary to right lower pneumonia: To rule out malignancy: Admit patient for medical services. Pulmonology consult. Keep n.p.o. after midnight. Possible bronchoscopy in the morning Vancomycin and Zosyn DuoNeb's q6 Monitor for O2 saturation, sepsis COPD, history of long-term smoking recently stopped. History of pulmonary nodule Optimize O2 saturation Resume albuterol as needed benzonatate guaifenesin for cough Nicotine patch as needed -Anxiety and depression: Not currently on any medication. continue monitor. Health anticoagulation for procedure. Protonix for GI protection Full code
[2023-12-24] MEDS: 0.9 % SODIUM CHLORIDE 1000ML 1,000 ML 75 ML IV (22:55)
[2023-12-24] MEDS: PANTOPRAZOLE 40MG TABLET 40 MG PO (22:55)
[2023-12-24] MEDS: BENZONATATE 100MG CAPSULE 200 MG PO (22:55)
[2023-12-24] MEDS: GUAIFENESIN/DEXTROMETHORPHAN 200MG/20MG 10ML UDC 10 ML PO (22:58)
--- NOTE | 2023-12-24 23:01 | PC.NURSE ---
Patient arrived to [facility] via wheelchair from ED at 20:19.
[2023-12-25] VITALS (18 sets, daily range): BP systolic 98–142; BP diastolic 25–82; PULSE 65–110; RESP 16–28; TEMP 36.4–36.9; O2SAT 91–100; BMI 24.4; BMI 53.8
[2023-12-25] MEDS: PIPERCILLIN/TAZO 3.375 GM in 0.9 % SODIUM CHLORIDE 50 ML IV ×3 (05:26→17:39)
[2023-12-25] MEDS: IPRATROPIUM/ALBUTEROL 3 ML NEB IH ×4 (06:14→23:59)
[2023-12-25 07:27] LABS: Alanine Aminotransferase 24 U/L (12-78); Albumin Level 2.7 g/dl (3.5-5.0); Albumin/Globulin Ratio 0.9 (1.1-1.8); Alkaline Phosphatase 134 U/L (38-126); Anion Gap 7.9 mEq/L (5-15); Aspartate Amino Transferase 33 U/L (14-36); Bilirubin,Total 0.2 mg/dl (0.2-1.3); Blood Urea Nitrogen 11 mg/dl (7-17); Calcium 8.1 mg/dl (8.4-10.2); Carbon Dioxide 27 mmol/L (22.0-30.0); Chloride 108 mmol/L (98-107); Chol/HDL Ratio 5.8 (1-3.5); Cholesterol 128 mg/dl (140-200); Creatinine Clearance Estimated 99 mL/min (50-200); Estimated Glomerular Filt Rate 93 ml/min (>60); GFR (African American) 112 ML/MIN (>60); Globulin 3.1 g/dL (1.3-3.2); Glucose 99 mg/dl (74-100); HDL Cholesterol 22 mg/dl (40-60); Potassium 3.9 mmoL/L (3.5-5.1); Sodium 139 mmol/L (136-145); Total Protein,Serum 5.8 g/dl (6.3-8.2); Triglycerides 79 mg/dl (30-150); VLDL Cholesterol 16 mg/dL (0-40)
[2023-12-25 07:44] LABS: Direct LDL Cholesterol 85.21 mg/dL (100-129)
[2023-12-25 08:16] LABS: Basophils # 0.1 K/mm3 (0-0.2); Basophils % 0.6 % (0.1-2.0); Eosinophils # 0.2 K/mm3 (0.0-0.4); Eosinophils % 1.9 % (0.1-12.0); Hematocrit 31.8 % (37.0-47.0); Lymphocytes # 1.8 K/mm3 (0.7-4.5); Mean Corpuscular HGB Conc 34.6 g/dL (31.8-35.4); Mean Corpuscular Hemoglobin 32.7 pg (27.0-31.2); Mean Corpuscular Volume 94.6 fl (81-99); Mean Platelet Volume 8.4 fl (7.4-10.4); Monocytes # 0.5 K/mm3 (0.1-1.0); Monocytes % 5.8 % (1.7-9.3); Neutrophils # 5.6 K/mm3 (1.8-7.8); Neutrophils % 69.7 % (37.0-80.0); Platelet Count 485 K/mm3 (142-424); Red Blood Count 3.36 M/mm3 (4.20-5.40); Red Cell Distribution Width 13.3 % (11.5-17.5); White Blood Count 8.1 K/mm3 (4.8-10.8)
--- NOTE | 2023-12-25 08:23 | HMH.PHAINT1 ---
Pharmacy Intervention Comments: Confirmed patient's home medications using external fill history and spoke with patient at bedside. Of note, she stated she does not take any prescription medications on a regular basis; updated regular OTC meds.
[2023-12-25] MEDS: LORATADINE 10MG TABLET 10 MG PO (09:46)
[2023-12-25] MEDS: BENZONATATE 100MG CAPSULE 200 MG PO ×2 (09:47→21:31)
--- NOTE | 2023-12-25 09:58 | EXP.PULM.CON ---
History of Present Illness History of present illness: Ms. Hameed is a 38-year-old female significant smoking history recent history of flu on 11/25/2023 managed as an outpatient basis presented With respiratory distress at that time discharged home on prednisone 60 for 3 days Tamiflu and albuterol inhalers presented to the ER again with worsening respiratory distress found to have concerning right lower lobe pneumonia and was eventually admitted for further management and pulmonary was called for further evaluation. She has received multiple rounds of antibiotics including cefdinir and azithromycin. Patient admits continued worsening respiratory symptoms throughout her clinical course. [facility] Disclaimer: The information contained in this section may have been updated after the patient was seen, as this information can be updated by other users. Medical History (Updated 12/25/23 @ 04:09 by Soto Tao APRN) COPD (chronic obstructive pulmonary disease) Family history of transposition of great arteries Abnormal EKG Palpitations Restless sleeper Daytime somnolence Family history of heart disease Tobacco dependence syndrome History of COVID-19 Dyspnea Depression Anxiety Social History Smoking Status: Current every day smoker tobacco type: cigarettes packs per day: 1 alcohol intake: never substance use type: denies use current occupational status: unemployed Travel in the last 8 weeks: None household members: spouse and family housing: house Review of Systems Constitutional Constitutional: Reports anorexia, Reports body ache(s), Reports fatigue and Reports lethargy Eyes Eyes: Denies eye discharge, Denies dry eyes, Denies irritation and Denies itchy eyes ENT Ears, Nose, Mouth, and Throat: Denies epistaxis, Denies facial pain, Denies lip swelling and Denies throat swelling *Cardiovascular Cardiovascular: Reports dyspnea and Reports dyspnea on exertion *Respiratory Respiratory: Reports change in phlegm color, Reports chest congestion, Reports cough, Reports dyspnea, Reports dyspnea on exertion, Reports excessive phlegm production, Denies hemoptysis, Reports pain on inspiration, Reports pain with cough and Denies wheezing *Gastrointestinal Gastrointestinal: Denies abdominal pain, Denies belching and Denies cramping *Musculoskeletal Musculoskeletal: Reports back pain, Reports myalgias and Reports other (No small joint swelling or Pain) Psychiatric Psychiatric: Denies homicidal ideation and Denies suicidal ideation Endocrine Endocrine: Reports fatigue and Denies heat intolerance Hematologic/Lymphatic Hematologic/Lymphatic: Denies easy bleeding and Denies lymphadenopathy Allergic/Immunologic Allergic/Immunologic: Denies itchy eyes, Denies lip swelling, Denies throat swelling and Denies wheezing Pulmonology Exam Inpatient Vital signs and Labs for Last 24 Hours: Temp Pulse Resp BP Pulse Ox O2 Del Method 97.9 F 90 20 107/62 L 96 Room Air 12/25/23 07:52 12/25/23 07:52 12/25/23 07:52 12/25/23 07:52 12/25/23 07:52 12/25/23 07:52 Laboratory Results - last 24 hr 12/24/23 17:18: WBC 12.0 H, RBC 3.67 L, Hgb 11.0 L, Hct 33.9 L, MCV 92.4, MCH 29.8, MCHC 32.3, RDW 13.3, Plt Count 588 H, MPV 8.0, Neut % (Auto) 74.5, Lymph % (Auto) 18.1, [place] % (Auto) 4.7, Eos % (Auto) 1.8, Baso % (Auto) 0.8, Neut # (Auto) 8.9 H, Lymph # (Auto) 2.2, [place] # (Auto) 0.6, Eos # (Auto) 0.2, Baso # (Auto) 0.1, PT 11.0, INR 1.02, D-Dimer 1.62 H, Sodium 138, Potassium 3.5, Chloride 105, Carbon Dioxide 29, Anion Gap 7.5, BUN 14, Creatinine 0.60, Estimated Creat Clear 110, Estimated GFR 111, Est GFR ( Amer) 134, Glucose 81, Calcium 9.2, Procalcitonin 0.063, Serum HCG, Qual Negative 12/25/23 06:41: WBC 8.1 D, RBC 3.36 L, Hgb 11.0 L, Hct 31.8 L, MCV 94.6, MCH 32.7 H, MCHC 34.6, RDW 13.3, Plt Count 485 H, MPV 8.4, Neut % (Auto) 69.7, Lymph % (Auto) 22.0, [place] % (Auto) 5.8, Eos % (Auto) 1.9, Baso % (Auto) 0.6, Neut # (Auto) 5.6, Lymph # (Auto) 1.8, [place] # (Auto) 0.5, Eos # (Auto) 0.2, Baso # (Auto) 0.1, Sodium 139, Potassium 3.9, Chloride 108 H, Carbon Dioxide 27, Anion Gap 7.9, BUN 11, Creatinine 0.70, Estimated Creat Clear 99, Estimated GFR 93, Est GFR ( Amer) 112, Glucose 99 D, Calcium 8.1 L, Total Bilirubin 0.2, AST 33, ALT 24, Alkaline Phosphatase 134 H, Total Protein 5.8 L, Albumin 2.7 L, Globulin 3.1, Albumin/Globulin Ratio 0.9 L, Triglycerides 79, Cholesterol 128 L, LDL Cholesterol Direct 85.21 L, VLDL Cholesterol 16, HDL Cholesterol 22 L, Cholesterol/HDL Ratio 5.8 H I & O for Labs for Last 24 Hours: Intake & Output 12/22/23 12/23/23 12/24/23 12/25/23 22:59 23:59 23:59 23:59 Intake Total 0 / 0 Output Total 0 / 0 0 / 0 Balance 0 / 0 0 / 0 Weight 128 lb 3.2 oz 129 lb 8 oz Constitutional: Present severe distress Head: Present normocephalic and atraumatic ENT: Present normal exam, normal oropharynx and mucous membranes moist Neck: Present normal inspection and full ROM Respiratory: Present respiratory distress and rhonchi; Absent wheezes or able to speak in complete sentences Cardiac: Present S1/S2, Tachycardia and radial pulses present GI: Present soft and distention; Absent tenderness or guarding Rectal (female): Present deferred (female): Present deferred Skin: Present intact; Absent cyanosis or jaundice Neuro: Present alert, awake and oriented x 3 Extremities: Present normal inspection; Absent clubbing or cyanosis Psychiatric: Present normal affect and cooperative Meds Home Medications and Allergies Home Medications Medication Instructions Recorded Confirmed Type benzonatate 100 mg capsule 100 mg PO TID PRN cough #20 caps 09/03/23 12/24/23 Rx azithromycin 250 mg tablet See Rx Instructions .Route 12/24/23 12/24/23 History .COMPLEX pneumonia cefdinir 300 mg capsule 300 mg PO BID pneumonia 12/24/23 12/24/23 History albuterol sulfate 90 mcg/actuation 4 inh inhalation Q4H PRN Shortness 12/25/23 12/24/23 History aerosol inhaler Of Breath Or Wheezing imdahuy-ohznlkhctmmvg-hsldvfvw 250 1 tab PO DAILY 12/25/23 12/25/23 History mg-250 mg-65 mg tablet (Excedrin Extra Strength) cetirizine 10 mg tablet 10 mg PO DAILY 12/25/23 12/25/23 History melatonin 5 mg tablet 5 mg PO HS 12/25/23 12/25/23 History New Prescriptions to Start Prescriptions: Allergies Allergy/AdvReac Type Severity Reaction Status Date / Time No Known Allergies Allergy Verified 12/24/23 20:26 Results Laboratory Findings 12/25/23 06:41 12/25/23 06:41 PT/INR, D-dimer PT 11.0 seconds (10.1-12.5) 12/24/23 17:18 INR 1.02 (0.9-1.1) 12/24/23 17:18 D-Dimer 1.62 ug/mL (0.0-0.5) H 12/24/23 17:18 Abnormal lab findings: Abnormal Labs 12/24/23 12/25/23 17:18 06:41 WBC 12.0 H RBC 3.67 L 3.36 L Hgb 11.0 L 11.0 L Hct 33.9 L 31.8 L MCH 32.7 H Plt Count 588 H 485 H Neut # (Auto) 8.9 H D-Dimer 1.62 H Chloride 108 H Calcium 8.1 L Alkaline Phosphatase 134 H Total Protein 5.8 L Albumin 2.7 L Albumin/Globulin Ratio 0.9 L Cholesterol 128 L LDL Cholesterol Direct 85.21 L HDL Cholesterol 22 L Cholesterol/HDL Ratio 5.8 H Assessment and Plan *Assessment and plan (1) Sepsis without septic shock: Status: Acute Category: Medical Code(s): A41.9 - Sepsis, unspecified organism (2) Right lower lobe pneumonia: Status: Acute Qualifiers: Pneumonia type: due to unspecified organism Qualified Code(s): J18.9 - Pneumonia, unspecified organism Category: Medical Code(s): J18.9 - Pneumonia, unspecified organism (3) CAP (community acquired pneumonia): Status: Acute Category: Medical Code(s): J18.9 - Pneumonia, unspecified organism Plan Ms. Hameed is a 38-year-old female significant smoking history recent history of flu on 11/25/2023 managed as an outpatient basis presented With respiratory distress at that time discharged home on prednisone 60 for 3 days Tamiflu and albuterol inhalers presented to the ER again with worsening respiratory distress found to have concerning right lower lobe pneumonia and was eventually admitted for further management and pulmonary was called for further evaluation. She has received multiple rounds of antibiotics including cefdinir and azithromycin. Patient admits continued worsening respiratory symptoms throughout her clinical course. Neutrophilic leukocytosis upon admission, improving. Patient on admission was initiated on vancomycin and Zosyn. CTA upon this admission., Dense right lower lobe consolidative changes along with small loculated pleural effusion. Chest x-ray from 11/25/2023 did not show any significant right lower lobe airspace disease and subsequent imaging showed continued worsening. The noted findings are likely infectious than malignancy at this point of time given acute presentation. On initial examination though patient on room air, appeared to be in severe respiratory distress, not able to speak in complete sentences. No significant wheezing noted on auscultation. Rhonchi Plan: Continue vancomycin and cefepime pending culture results Schedule bronchoscopy transbronchial biopsy today Continue DuoNebs every 6 hours scheduled # Thank you for involving pulmonary in this patient care. Will continue to follow.
[2023-12-25] MEDS: BUTALB/ACETAMINOPHEN/CAFFEINE 50MG/325MG/40MG TAB 1 EACH PO ×2 (11:47→21:31)
--- NOTE | 2023-12-25 14:07 | EXP.ANES.CKL ---
[facility] Disclaimer: The information contained in this section may have been updated after the patient was seen, as this information can be updated by other users. Medical History (Updated 12/25/23 @ 04:09 by Soto Tao APRN) COPD (chronic obstructive pulmonary disease) Family history of transposition of great arteries Abnormal EKG Palpitations Restless sleeper Daytime somnolence Family history of heart disease Tobacco dependence syndrome History of COVID-19 Dyspnea Depression Anxiety Social History Smoking Status: Current every day smoker tobacco type: cigarettes packs per day: 1 alcohol intake: never substance use type: denies use current occupational status: unemployed Travel in the last 8 weeks: None household members: spouse and family housing: house [facility] Anesthesia Checklist Patient Identification Patient Identification: Arm Band, Family and Verbal (Name & ) Structural Data Admitted From: Inpatient (RM [id number]) Planned Operative Procedure/s: Bronch Consent for Planned Operative Procedure(s) Verified: Yes Verified Documents: Surgical Consent and History and Physical NPO Status Verified Time NPO: 23:30 Chart Verification Results Verified: CBC, BMP, PT, PTT, INR, ECG, Chest Xray and HCG Additional verifications Patient : No Anesthesia Reactions: No Cardiovascular Assessment Heart Sounds: S1 & S2 Pulse Rhythm: Irregular Peripheral Edema: No Airway Assessment Mallampati Score:: Class II C-Spine Mobility Assessed: Yes (FROM) TMJ Mobility Assessed: Yes Dentition: Poor Dentition (No teeth on top. Nothing loose on bottom per pt.) Neurological Assessment Level of Consciousness: Awake, Alert, Appropriate and Follows Commands Hx Seizures: No Numbness or tingling in extremities: No Anesthesia Plan Anesthesia Risk discussed: Yes Anesthesia Plan: Verified ASA Class: III Anesthesia Type: General
--- NOTE | 2023-12-25 15:11 | XR_ITS ---
FINAL REPORT CLINICAL HISTORY: .2.2 min 27.22 mGy FINDINGS: FLUOROSCOPY LESS THAN 1 HOUR HISTORY: Fluoroscopy guidance. Fluoroscopic guidance was provided for bronchoscopy. A single spot film was obtained. A total of 2.2 minutes of fluoroscopy time were used. Total DAP: 27.22 mGy IMPRESSION: As above. Reviewed, Interpreted and Dictated by Duran Bucio III, MD Transcribed by Lindsay Guajardo Authenticated and [facility]
--- NOTE | 2023-12-25 15:28 | P.PNANES_ITS ---
[facility] Anesthesia Record Part I Anesthesia Record I Intake, IV Amount: 300 Hydration: Adequate Estimated blood loss (mL): 10 Urine output (mL): 0 Blood Products used (#): none Blood Pressure: 108/25 SaO2: 96 Pulse Rate: 110 Airway Patency: Patent Respiratory Rate: 28 Temperature: 97.5 F Patient is:: Awake (Coughing. Talking.) and Stable Stable to PACU at:: 15:18
[2023-12-25] MEDS: ONDANSETRON 4MG/2ML VIAL 4 MG IV (16:47)
[2023-12-25] MEDS: 0.9 % SODIUM CHLORIDE 1000ML 1,000 ML 75 ML IV (16:47)
--- NOTE | 2023-12-25 16:52 | P.PCN_ITS ---
Procedure: Date: 12/25/23 Patient Date of :: 1985 Procedure Performed:: Bronchoscopy airway examination bronchoalveolar lavage and transbronchial lung biopsy Indications:: Nonresolving pneumonia Performing Provider:: Monika Smart MD Referring Provider:: Dr. Mcelroy Sedation:: General anesthesia Procedure:: Bronchoscopy airway examination, bronchoalveolar lavage and transbronchial lung biopsy: A clean DIAGNOSTIC bronchoscopy was advanced through the ET tube and airways were examined up to subsegmental bronchi. Airways appeared grossly normal, no evidence of mucoid secretions, mucous plugging active bleeding/old blood clots noted. Bronchoalveolar lavage was performed in the RIGHT LOWER LOBE with instillation of 60 cc normal saline with return of 30 cc back. BAL fluid was sent for cell count and differential along with bacterial fungal and AFB stain and cultures. Transbronchial biopsy was performed in the RIGHT LOWER LOBE with a total of 7 biopsies performed, 5 biopsy specimens were sent in formalin for cytopathologic examination. The other 2 biopsy samples, were sent one each in two separate normal saline specimen cups for bacterial fungal and AFB stain cultures. Spec ial request was also made for the pathologist to evaluate for AFB and fungal organisms on the cytopathologic examination. Patient tolerated the procedure with no immediate acute complications. We will follow the patient in pulmonary clinic in 7 to 10 days. Findings:: Please see the procedure note Recommendations:: Postoperative bronchoscopy instructions Further recommendations please refer to consultation note from today Complications:: No acute immediate complications Estimated blood obtained (mL): 5
--- NOTE | 2023-12-25 17:55 | EXP.PN ---
Subjective *Date: 12/25/23 *Time: 17:55 Interval history: seen at bedside, denied CP, SOB, N/V Exam Data for Last 24 hours Vital signs and Labs for Last 24 Hours: Temp Pulse Resp BP Pulse Ox O2 Del Method 97.5 F L 89 20 112/68 100 Room Air 12/25/23 15:29 12/25/23 15:43 12/25/23 15:43 12/25/23 15:43 12/25/23 15:43 12/25/23 15:43 Laboratory Results - last 24 hr 12/24/23 17:18: Procalcitonin 0.063, Serum HCG, Qual Negative 12/25/23 06:41: WBC 8.1 D, RBC 3.36 L, Hgb 11.0 L, Hct 31.8 L, MCV 94.6, MCH 32.7 H, MCHC 34.6, RDW 13.3, Plt Count 485 H, MPV 8.4, Neut % (Auto) 69.7, Lymph % (Auto) 22.0, [place] % (Auto) 5.8, Eos % (Auto) 1.9, Baso % (Auto) 0.6, Neut # (Auto) 5.6, Lymph # (Auto) 1.8, [place] # (Auto) 0.5, Eos # (Auto) 0.2, Baso # (Auto) 0.1, Sodium 139, Potassium 3.9, Chloride 108 H, Carbon Dioxide 27, Anion Gap 7.9, BUN 11, Creatinine 0.70, Estimated Creat Clear 99, Estimated GFR 93, Est GFR ( Amer) 112, Glucose 99 D, Calcium 8.1 L, Total Bilirubin 0.2, AST 33, ALT 24, Alkaline Phosphatase 134 H, Total Protein 5.8 L, Albumin 2.7 L, Globulin 3.1, Albumin/Globulin Ratio 0.9 L, Triglycerides 79, Cholesterol 128 L, LDL Cholesterol Direct 85.21 L, VLDL Cholesterol 16, HDL Cholesterol 22 L, Cholesterol/HDL Ratio 5.8 H I & O for Last 24 hours: Intake & Output 12/22/23 12/23/23 12/24/23 12/25/23 22:59 23:59 23:59 23:59 Intake Total 300 / 300 Output Total 0 / 0 0 / 0 Balance 0 / 0 300 / 300 Weight 58.151 kg 58.74 kg Constitutional Constitutional: no acute distress *Routine HEENT Exam Head: Present normocephalic Eye: Present EOMI and PERRL ENT: Present mucous membranes moist *Routine Neck Exam Neck: Present supple; Absent lymphadenopathy *Routine Respiratory Exam Respiratory: Present CTA bilaterally *Routine Cardiovascular Exam Cardiovascular: Present RRR *Routine Abdominal Exam Abdominal: Present soft and normoactive bowel sounds; Absent tenderness *Routine Extremities Exam Extremities: Absent cyanosis, clubbing or edema *Routine Skin Exam Skin: Present warm; Absent rash *Routine Neurological Exam Neurological: Present alert and oriented X3 Assessment and Plan *Assessment and plan (1) Sepsis without septic shock: Status: Acute Category: Medical Code(s): A41.9 - Sepsis, unspecified organism (2) Right lower lobe pneumonia: Status: Acute Qualifiers: Pneumonia type: due to unspecified organism Qualified Code(s): J18.9 - Pneumonia, unspecified organism Category: Medical Code(s): J18.9 - Pneumonia, unspecified organism (3) COPD (chronic obstructive pulmonary disease): Status: Acute Qualifiers: COPD type: unspecified COPD Qualified Code(s): J44.9 - Chronic obstructive pulmonary disease, unspecified Category: Medical Code(s): J44.9 - Chronic obstructive pulmonary disease, unspecified (4) Anxiety: Status: Chronic Category: Medical Code(s): F41.9 - Anxiety disorder, unspecified (5) Depression: Status: Chronic Qualifiers: Depression Type: major depressive disorder Major depression recurrence: single episode Active/Remission status: currently active Major depression episode severity: moderate Qualified Code(s): F32.1 - Major depressive disorder, single episode, moderate Category: Medical Code(s): F32.9 - Major depressive disorder, single episode, unspecified Plan 38 yo F with PMHx of COPD, former recent smoker, pulmonary nodule, depression and anxiety presented to the emergency department with initially a chief complaint of right-sided back pain . -Sepsis without septic shock, secondary to right lower pneumonia: To rule out malignancy: Admit patient for medical services. Pulmonology consult. plan for bronchoscopy today continue Vancomycin and cefepime DuoNeb's q6 Monitor for O2 saturation, sepsis COPD, history of long-term smoking History of pulmonary nodule Optimize O2 saturation Resume albuterol as needed benzonatate guaifenesin for cough Nicotine patch as needed -Anxiety and depression: Not currently on any medication. continue monitor. Health anticoagulation for procedure. Protonix for GI protection Full code f/u on bronchoscopy, continue IV abx
--- NOTE | 2023-12-25 19:11 | PC.NURSE ---
Patient a&ox4 and vss, Patient went for bronch today. Patient has cough post procedure.
[2023-12-25] MEDS: GUAIFENESIN/DEXTROMETHORPHAN 200MG/20MG 10ML UDC 10 ML PO (21:31)
[2023-12-25] MEDS: ACETAMINOPHEN 325MG TAB 650 MG PO (21:31)
[2023-12-25] MEDS: PANTOPRAZOLE 40MG TABLET 40 MG PO (21:32)
[2023-12-25] MEDS: MELATONIN 5MG TABLET 5 MG PO (21:32)
[2023-12-26] VITALS (10 sets, daily range): BP systolic 91–112; BP diastolic 57–68; PULSE 66–96; RESP 16–20; TEMP 36.4–36.6; O2SAT 96–100; BMI 24.5
[2023-12-26] MEDS: PIPERCILLIN/TAZO 3.375 GM in 0.9 % SODIUM CHLORIDE 50 ML IV ×4 (00:07→17:51)
[2023-12-26] MEDS: IPRATROPIUM/ALBUTEROL 3 ML NEB IH ×4 (06:24→23:29)
[2023-12-26] MEDS: LORATADINE 10MG TABLET 10 MG PO (08:11)
[2023-12-26] MEDS: GUAIFENESIN/DEXTROMETHORPHAN 200MG/20MG 10ML UDC 10 ML PO (08:12)
[2023-12-26] MEDS: BENZONATATE 100MG CAPSULE 200 MG PO ×3 (08:12→20:45)
--- NOTE | 2023-12-26 09:38 | EXP.PULM.PN ---
Subjective *Date: 12/26/23 *Time: 12:09 Interval history: No acute respiratory events overnight Pulmonology Exam Inpatient Vital signs and Labs for Last 24 Hours: Temp Pulse Resp BP Pulse Ox O2 Del Method 97.8 F 82 18 91/57 L 99 Room Air 12/26/23 08:00 12/26/23 08:00 12/26/23 08:00 12/26/23 08:00 12/26/23 08:00 12/26/23 08:00 I & O for Labs for Last 24 Hours: Intake & Output 12/23/23 12/24/23 12/25/23 12/26/23 23:59 23:59 23:59 23:59 Intake Total 300 / 660 600 / 600 Output Total 0 / 0 0 / 0 0 / 0 Balance 0 / 0 300 / 660 600 / 600 Weight 128 lb 3.2 oz 129 lb 8 oz 130 lb 3.2 oz Constitutional: Present severe distress Head: Present normocephalic and atraumatic ENT: Present normal exam, normal oropharynx and mucous membranes moist Neck: Present normal inspection and full ROM Respiratory: Present respiratory distress and rhonchi; Absent wheezes or able to speak in complete sentences Cardiac: Present S1/S2, Tachycardia and radial pulses present GI: Present soft and distention; Absent tenderness or guarding Rectal (female): Present deferred (female): Present deferred Skin: Present intact; Absent cyanosis or jaundice Neuro: Present alert, awake and oriented x 3 Extremities: Present normal inspection; Absent clubbing or cyanosis Psychiatric: Present normal affect and cooperative Assessment and Plan *Assessment and plan (1) Sepsis without septic shock: Status: Acute Category: Medical Code(s): A41.9 - Sepsis, unspecified organism (2) Right lower lobe pneumonia: Status: Acute Qualifiers: Pneumonia type: due to unspecified organism Qualified Code(s): J18.9 - Pneumonia, unspecified organism Category: Medical Code(s): J18.9 - Pneumonia, unspecified organism (3) CAP (community acquired pneumonia): Status: Acute Category: Medical Code(s): J18.9 - Pneumonia, unspecified organism Plan Ms. Hameed is a 38-year-old female significant smoking history recent history of flu on 11/25/2023 managed as an outpatient basis presented With respiratory distress at that time discharged home on prednisone 60 for 3 days Tamiflu and albuterol inhalers presented to the ER again with worsening respiratory distress found to have concerning right lower lobe pneumonia and was eventually admitted for further management and pulmonary was called for further evaluation. She has received multiple rounds of antibiotics including cefdinir and azithromycin. Patient admits continued worsening respiratory symptoms throughout her clinical course. Neutrophilic leukocytosis upon admission, improving. Patient on admission was initiated on vancomycin and Zosyn. CTA upon this admission., Dense right lower lobe consolidative changes along with small loculated pleural effusion. Chest x-ray from 11/25/2023 did not show any significant right lower lobe airspace disease and subsequent imaging showed continued worsening. The noted findings are likely infectious than malignancy at this point of time given acute presentation. On initial examination though patient on room air, appeared to be in severe respiratory distress, not able to speak in complete sentences. No significant wheezing noted on auscultation. Rhonchi Interval examination: Status post bronchoscopy. No acute events overnight. Admits resolving chest pain. Improving cough. Pending bronchoscopy results. Plan: Continue vancomycin and cefepime pending culture results Continue DuoNebs every 6 hours scheduled # Thank you for involving pulmonary in this patient care. Will continue to follow.
--- NOTE | 2023-12-26 14:03 | EXP.ANES.II ---
[facility] Anesthesia Record Part II Anesthesia Record Part II Discharge Time: 15:43 Destination: Medical Surgical Department PACU nurse assessment reviewed?: Yes Patient Condition:: Good Anesthesia Complications:: None Swallowing reflex intact?: Yes Airway Patency: Patent Cyanosis?: No Blood Pressure: 112/68 SaO2: 100 Respiratory Rate: 20 Pulse Rate: 89 Temperature: 97.5 F Mental Status: Alert & Oriented Pain level:: 0 Nausea and/or vomitting:: None Intake, IV Amount: 0 Hydration: Adequate
--- NOTE | 2023-12-26 16:31 | EXP.PN ---
Subjective *Date: 12/26/23 *Time: 16:31 Interval history: patient was seen and evaluated at the bedside. No reported acute events overnight, denies chest pain, shortness of breath, nausea, vomiting, abdominal pain. Exam Data for Last 24 hours Vital signs and Labs for Last 24 Hours: Temp Pulse Resp BP Pulse Ox O2 Del Method 97.9 F 80 20 101/66 L 98 Room Air 12/26/23 11:28 12/26/23 11:32 12/26/23 14:04 12/26/23 11:28 12/26/23 11:28 12/26/23 13:00 I & O for Last 24 hours: Intake & Output 12/23/23 12/24/23 12/25/23 12/26/23 23:59 23:59 23:59 23:59 Intake Total 300 / 660 960 / 960 Output Total 0 / 0 0 / 0 0 / 0 Balance 0 / 0 300 / 660 960 / 960 Weight 58.151 kg 58.74 kg 59.058 kg Microbiology Reports for the Last 24 Hours: Microbiology 12/25/23 14:28 Transbronchial Biopsy - Biopsy Surgical Biopsy Culture - Preliminary NO GROWTH AFTER 24 HOURS Constitutional Constitutional: no acute distress *Routine HEENT Exam Head: Present normocephalic Eye: Present EOMI and PERRL ENT: Present mucous membranes moist *Routine Neck Exam Neck: Present supple; Absent lymphadenopathy *Routine Respiratory Exam Respiratory: Present CTA bilaterally *Routine Cardiovascular Exam Cardiovascular: Present RRR *Routine Abdominal Exam Abdominal: Present soft and normoactive bowel sounds; Absent tenderness *Routine Extremities Exam Extremities: Absent cyanosis, clubbing or edema *Routine Skin Exam Skin: Present warm; Absent rash *Routine Neurological Exam Neurological: Present alert and oriented X3 Assessment and Plan *Assessment and plan (1) Sepsis without septic shock: Status: Acute Category: Medical Code(s): A41.9 - Sepsis, unspecified organism (2) Right lower lobe pneumonia: Status: Acute Qualifiers: Pneumonia type: due to unspecified organism Qualified Code(s): J18.9 - Pneumonia, unspecified organism Category: Medical Code(s): J18.9 - Pneumonia, unspecified organism (3) COPD (chronic obstructive pulmonary disease): Status: Acute Qualifiers: COPD type: unspecified COPD Qualified Code(s): J44.9 - Chronic obstructive pulmonary disease, unspecified Category: Medical Code(s): J44.9 - Chronic obstructive pulmonary disease, unspecified (4) Anxiety: Status: Chronic Category: Medical Code(s): F41.9 - Anxiety disorder, unspecified (5) Depression: Status: Chronic Qualifiers: Depression Type: major depressive disorder Major depression recurrence: single episode Active/Remission status: currently active Major depression episode severity: moderate Qualified Code(s): F32.1 - Major depressive disorder, single episode, moderate Category: Medical Code(s): F32.9 - Major depressive disorder, single episode, unspecified Plan 38 yo F with PMHx of COPD, former recent smoker, pulmonary nodule, depression and anxiety presented to the emergency department with initially a chief complaint of right-sided back pain . -Sepsis without septic shock, secondary to right lower pneumonia - To rule out malignancy: Pulmonology consult. s/p bronchoscopy continue Vancomycin and cefepime DuoNeb's q6 Monitor for O2 saturation, sepsis COPD, history of long-term smoking History of pulmonary nodule Optimize O2 saturation Resume albuterol as needed benzonatate guainefenesin for cough Nicotine patch as needed -Anxiety and depression: Not currently on any medication. continue monitor. Health anticoagulation for procedure. Protonix for GI protection Full code f/u on bronchoscopy, continue IV abx - dc 1-2 days
--- NOTE | 2023-12-26 18:00 | PC.NURSE ---
AOX4, HAS AMBULATED IN ROOM AND TOLERATED WELL. SHE HAS NOT REQUIRED O2 SUPPORT. PT DID C/O ITCHING AND REDNESS AROUND HER EYES DR LORENZ WAS MADE AWARE. SHE WAS MEDICATED X1 WITH PRN ROBITUSSIN FOR COUGH. NO OTHER COMPLAINTS.
[2023-12-26] MEDS: BUTALB/ACETAMINOPHEN/CAFFEINE 50MG/325MG/40MG TAB 1 EACH PO (20:43)
[2023-12-26] MEDS: MELATONIN 5MG TABLET 5 MG PO (20:44)
[2023-12-26] MEDS: ACETAMINOPHEN 325MG TAB 650 MG PO (20:44)
[2023-12-26] MEDS: PANTOPRAZOLE 40MG TABLET 40 MG PO (20:44)
[2023-12-27] VITALS (7 sets, daily range): BP systolic 101–124; BP diastolic 58–78; PULSE 65–83; RESP 16–18; TEMP 36.4–36.9; O2SAT 94–100; BMI 25.2
[2023-12-27] MEDS: PIPERCILLIN/TAZO 3.375 GM in 0.9 % SODIUM CHLORIDE 50 ML IV ×3 (00:11→12:46)
[2023-12-27] MEDS: IPRATROPIUM/ALBUTEROL 3 ML NEB IH ×3 (06:01→18:17)
[2023-12-27] MEDS: LORATADINE 10MG TABLET 10 MG PO (08:12)
[2023-12-27] MEDS: BENZONATATE 100MG CAPSULE 200 MG PO ×3 (08:12→21:01)
--- NOTE | 2023-12-27 08:22 | EXP.PHA.PN ---
Subjective *Date: 12/27/23 *Time: 08:22 Medical Exam Vital signs and Labs for Last 24 Hours: Vital Signs Temp Pulse Pulse Resp BP Pulse Ox O2 Del Method 12/27/23 07:37 98.0 F 65 16 116/75 98 Room Air 12/27/23 06:09 Room Air 12/27/23 06:02 70 12/27/23 06:02 80 12/27/23 06:02 94 L Room Air 12/27/23 05:00 Room Air 12/27/23 04:00 97.6 F 69 18 103/61 L 100 Room Air 12/27/23 02:54 Room Air 12/27/23 01:00 Room Air 12/27/23 00:00 98.5 F 83 18 115/60 96 Room Air 12/26/23 23:35 83 12/26/23 23:35 96 H 12/26/23 23:00 Room Air 12/26/23 21:00 Room Air 12/26/23 20:00 97.6 F 92 H 18 107/65 L 96 Room Air 12/26/23 18:54 Room Air 12/26/23 18:29 88 12/26/23 18:29 96 H 12/26/23 18:29 96 Room Air 12/26/23 16:35 Room Air 12/26/23 16:00 97.7 F 80 16 100/63 L 98 Room Air 12/26/23 15:00 Room Air 12/26/23 14:04 20 12/26/23 13:00 Room Air 12/26/23 11:32 80 12/26/23 11:32 80 12/26/23 11:28 97.9 F 81 16 101/66 L 98 Room Air 12/26/23 11:00 Room Air 12/26/23 09:00 Room Air Intake and Output 12/26/23 12/27/23 12/27/23 23:59 07:59 15:59 Intake Total 1010 / 2330 720 / 720 Output Total 0 / 0 0 / 0 Balance 1010 / 2330 720 / 720 Intake: Intake, Oral Amount 1010 / 2330 720 / 720 Output: Output, Urine Amount 0 / 0 0 / 0 Other: Number of Voids 2 Number of Unmeasured Voids 1 1 Number of Bowel Movements 0 Weight 60.781 kg Patient Weight 12/27/23 23:59 Weight 60.781 kg I & O for Labs for Last 24 Hours: Intake & Output 12/24/23 12/25/23 12/26/23 12/27/23 23:59 23:59 23:59 23:59 Intake Total 300 / 660 1969 / 2329 720 / 720 Output Total 0 / 0 0 / 0 0 / 0 0 / 0 Balance 0 / 0 300 / 660 1969 720 / 720 Weight 58.151 kg 58.74 kg 59.058 kg 60.781 kg Microbiology Reports for the Last 24 Hours: Microbiology 12/25/23 14:28 Transbronchial Biopsy - Biopsy Surgical Biopsy Culture - Preliminary NO GROWTH AFTER 24 HOURS The patient's infection will respond to the chosen ABx?: Yes Is the patient receiving the right drug, dose, and route?: Yes Could a more targeted ABx be ordered?: No (ALL CX PENDING)
--- NOTE | 2023-12-27 09:48 | XR_ITS ---
FINAL REPORT CLINICAL HISTORY: [facility] PNM COMPARISON: 12/21/2023 FINDINGS: A single portable view of the chest was obtained. The heart size and pulmonary vascularity are within normal limits. The mediastinum is within normal limits. Persistent right base opacities are consistent with pneumonia. New left base opacities likely represent atelectasis or pneumonia. The bony thorax is intact. IMPRESSION: Right base pneumonia. New left base opacities, likely atelectasis or pneumonia. Reviewed, Interpreted and Dictated by Duran Bucio III, MD Transcribed by Lindsay Guajardo Authenticated and . [facility]
--- NOTE | 2023-12-27 09:48 | EXP.PULM.PN ---
Subjective *Date: 12/27/23 *Time: 12:51 Interval history: No acute respiratory events overnight. Worsening cough yesterday. Stable respiratory distress. Pulmonology Exam Inpatient Vital signs and Labs for Last 24 Hours: Temp Pulse Resp BP Pulse Ox O2 Del Method 98.0 F 65 16 116/75 98 Room Air 12/27/23 07:37 12/27/23 07:37 12/27/23 07:37 12/27/23 07:37 12/27/23 07:37 12/27/23 07:37 I & O for Labs for Last 24 Hours: Intake & Output 12/24/23 12/25/23 12/26/23 12/27/23 23:59 23:59 23:59 23:59 Intake Total 300 / 660 1969 / 2330 720 / 720 Output Total 0 / 0 0 / 0 0 / 0 0 / 0 Balance 0 / 0 300 / 660 1969 / 233 720 / 720 Weight 128 lb 3.2 oz 129 lb 8 oz 130 lb 3.2 oz 134 lb Microbiology Reports for the Last 24 Hours: Microbiology 12/25/23 14:28 Transbronchial Biopsy - Biopsy Surgical Biopsy Culture - Preliminary NO GROWTH AFTER 24 HOURS Constitutional: Present severe distress Head: Present normocephalic and atraumatic ENT: Present normal exam, normal oropharynx and mucous membranes moist Neck: Present normal inspection and full ROM Respiratory: Present respiratory distress and rhonchi; Absent wheezes or able to speak in complete sentences Cardiac: Present S1/S2, Tachycardia and radial pulses present GI: Present soft and distention; Absent tenderness or guarding Rectal (female): Present deferred (female): Present deferred Skin: Present intact; Absent cyanosis or jaundice Neuro: Present alert, awake and oriented x 3 Extremities: Present normal inspection; Absent clubbing or cyanosis Psychiatric: Present normal affect and cooperative Assessment and Plan *Assessment and plan (1) Sepsis without septic shock: Status: Acute Category: Medical Code(s): A41.9 - Sepsis, unspecified organism (2) Right lower lobe pneumonia: Status: Acute Qualifiers: Pneumonia type: due to unspecified organism Qualified Code(s): J18.9 - Pneumonia, unspecified organism Category: Medical Code(s): J18.9 - Pneumonia, unspecified organism (3) CAP (community acquired pneumonia): Status: Acute Category: Medical Code(s): J18.9 - Pneumonia, unspecified organism Plan Ms. Hameed is a 38-year-old female significant smoking history recent history of flu on 11/25/2023 managed as an outpatient basis presented With respiratory distress at that time discharged home on prednisone 60 for 3 days Tamiflu and albuterol inhalers presented to the ER again with worsening respiratory distress found to have concerning right lower lobe pneumonia and was eventually admitted for further management and pulmonary was called for further evaluation. She has received multiple rounds of antibiotics including cefdinir and azithromycin. Patient admits continued worsening respiratory symptoms throughout her clinical course. Neutrophilic leukocytosis upon admission, improving. Patient on admission was initiated on vancomycin and Zosyn. CTA upon this admission., Dense right lower lobe consolidative changes along with small loculated pleural effusion. Chest x-ray from 11/25/2023 did not show any significant right lower lobe airspace disease and subsequent imaging showed continued worsening. The noted findings are likely infectious than malignancy at this point of time given acute presentation. On initial examination though patient on room air, appeared to be in severe respiratory distress, not able to speak in complete sentences. No significant wheezing noted on auscultation. Rhonchi Interval examination: No acute respiratory vents overnight. Continue to remain on room air. Biopsy no growth so far. BAL stain and cultures negative. Will follow. Continue to receive vancomycin and cefepime. Repeat chest x-ray from today no significant change. Stable airspace disease. Biopsy no cultures. Hyaline membrane noted. Patient received vancomycin upon admission. Continue to receive Zosyn since then. Plan: Wean antibiotics to Augmentin twice daily. Blood culture still pending. Patient otherwise stable to be discharged home from pulmonary standpoint with a clinic follow-up in 5 days. Continue DuoNebs every 6 hours scheduled # Thank you for involving pulmonary in this patient care. Will follow the patient in pulmonary clinic in 5 days post discharge.
[2023-12-27] MEDS: AMOXICILLIN/CLAVULANATE POTASSIUM 875/125MG TABLET 1 EACH PO ×2 (13:17→21:01)
--- NOTE | 2023-12-27 16:05 | EXP.PN ---
Subjective *Date: 12/27/23 *Time: 16:38 Interval history: patient was seen and evaluated at the bedside. She complains of cough, she had hemoptysis, No reported acute events overnight, denies chest pain, shortness of breath, nausea, vomiting, abdominal pain. Exam Data for Last 24 hours Vital signs and Labs for Last 24 Hours: Temp Pulse Resp BP Pulse Ox O2 Del Method 98.3 F 80 18 124/78 98 Room Air 12/27/23 12:00 12/27/23 12:00 12/27/23 12:00 12/27/23 12:00 12/27/23 12:00 12/27/23 15:00 Laboratory Results - last 24 hr 12/25/23 14:28: BAL Total Cell Count See comment I & O for Last 24 hours: Intake & Output 12/24/23 12/25/23 12/26/23 12/27/23 23:59 23:59 23:59 23:59 Intake Total 300 / 660 1970 / 2330 1440 / 1440 Output Total 0 / 0 0 / 0 0 / 0 0 / 0 Balance 0 / 0 300 / 660 1970 / 2330 1440 / 1440 Weight 58.151 kg 58.74 kg 59.058 kg 60.78 kg Microbiology Reports for the Last 24 Hours: Microbiology 12/25/23 14:28 Bronchial Washings - Bronchial Bronchoalveolar Lavage Culture - Preliminary 12/25/23 14:28 Transbronchial Biopsy - Biopsy Surgical Biopsy Culture - Preliminary Constitutional Constitutional: no acute distress *Routine HEENT Exam Head: Present normocephalic Eye: Present EOMI and PERRL ENT: Present mucous membranes moist *Routine Neck Exam Neck: Present supple; Absent lymphadenopathy *Routine Respiratory Exam Respiratory: Present CTA bilaterally *Routine Cardiovascular Exam Cardiovascular: Present RRR *Routine Abdominal Exam Abdominal: Present soft and normoactive bowel sounds; Absent tenderness *Routine Extremities Exam Extremities: Absent cyanosis, clubbing or edema *Routine Skin Exam Skin: Present warm; Absent rash *Routine Neurological Exam Neurological: Present alert and oriented X3 Assessment and Plan *Assessment and plan (1) Sepsis without septic shock: Status: Acute Category: Medical Code(s): A41.9 - Sepsis, unspecified organism (2) Right lower lobe pneumonia: Status: Acute Qualifiers: Pneumonia type: due to unspecified organism Qualified Code(s): J18.9 - Pneumonia, unspecified organism Category: Medical Code(s): J18.9 - Pneumonia, unspecified organism (3) COPD (chronic obstructive pulmonary disease): Status: Acute Qualifiers: COPD type: unspecified COPD Qualified Code(s): J44.9 - Chronic obstructive pulmonary disease, unspecified Category: Medical Code(s): J44.9 - Chronic obstructive pulmonary disease, unspecified (4) Anxiety: Status: Chronic Category: Medical Code(s): F41.9 - Anxiety disorder, unspecified (5) Depression: Status: Chronic Qualifiers: Active/Remission status: currently active Depression Type: major depressive disorder Major depression episode severity: moderate Major depression recurrence: single episode Qualified Code(s): F32.1 - Major depressive disorder, single episode, moderate Category: Medical Code(s): F32.9 - Major depressive disorder, single episode, unspecified Plan 38 yo F with PMHx of COPD, former recent smoker, pulmonary nodule, depression and anxiety presented to the emergency department with initially a chief complaint of right-sided back pain . -Sepsis without septic shock, secondary to right lower pneumonia - To rule out malignancy: Pulmonology consult. s/p bronchoscopy - await culture results started on Amoxicillin per puolaleksandra Ritchie's Q6 Monitor for O2 saturation, sepsis COPD, history of long-term smoking History of pulmonary nodule Optimize O2 saturation Resume albuterol as needed benzonatate guainefenesin for cough Nicotine patch as needed Anxiety and depression: Not currently on any medication. continue monitor. Health anticoagulation for procedure. Protonix for GI protection Full code F/U on bronchoscopy culture results, blood culture results, continue IV abx - DC 1-2 days
[2023-12-27] MEDS: BUTALB/ACETAMINOPHEN/CAFFEINE 50MG/325MG/40MG TAB 1 EACH PO (17:25)
--- NOTE | 2023-12-27 17:52 | PC.NURSE ---
no changes since previous assessment. medicated for headache once this shift. tolerating room air well.
[2023-12-27] MEDS: MELATONIN 5MG TABLET 5 MG PO (21:02)
[2023-12-27] MEDS: PANTOPRAZOLE 40MG TABLET 40 MG PO (21:02)
[2023-12-28] VITALS: BP 101/59; PULSE 81; RESP 18; TEMP 36.8; O2SAT 94
[2023-12-28] MEDS: GUAIFENESIN/DEXTROMETHORPHAN 200MG/20MG 10ML UDC 10 ML PO ×2 (00:01→11:59)
[2023-12-28] MEDS: IPRATROPIUM/ALBUTEROL 3 ML NEB IH ×3 (00:30→11:20)
[2023-12-28 01:12] VITALS: PULSE 81
[2023-12-28 04:00] VITALS: BP 96/54; PULSE 81; RESP 18; TEMP 36.9; O2SAT 97; BMI 24.0
[2023-12-28 06:45] VITALS: PULSE 85; PULSE 87
--- NOTE | 2023-12-28 06:51 | PC.NURSE ---
Patient has rested well this shift with no acute changes noted. Vitals have remained stable
[2023-12-28 08:00] VITALS: BP 92/53; PULSE 65; RESP 17; TEMP 36.6; O2SAT 95
[2023-12-28] MEDS: AMOXICILLIN/CLAVULANATE POTASSIUM 875/125MG TABLET 1 EACH PO (09:22)
[2023-12-28] MEDS: BENZONATATE 100MG CAPSULE 200 MG PO (09:22)
[2023-12-28] MEDS: LORATADINE 10MG TABLET 10 MG PO (09:22)
--- NOTE | 2023-12-28 09:43 | EXP.PULM.PN ---
Subjective *Date: 12/28/23 *Time: 13:11 Interval history: No acute respiratory events overnight. Patient admits improvement in her cough. Resolved chest pain. Pulmonology Exam Inpatient Vital signs and Labs for Last 24 Hours: Temp Pulse Resp BP Pulse Ox O2 Del Method 97.9 F 65 17 92/53 L 95 Room Air 12/28/23 08:00 12/28/23 08:00 12/28/23 08:00 12/28/23 08:00 12/28/23 08:00 12/28/23 09:00 Laboratory Results - last 24 hr 12/25/23 14:28: BAL Total Cell Count See comment I & O for Labs for Last 24 Hours: Intake & Output 12/25/23 12/26/23 12/27/23 12/28/23 23:59 23:59 23:59 23:59 Intake Total 300 / 660 1970 / 2330 1680 / 1680 120 / 120 Output Total 0 / 0 0 / 0 0 / 0 Balance 300 / 660 1970 / 2330 1680 / 1680 120 / 120 Weight 129 lb 8 oz 130 lb 3.2 oz 133 lb 15.951 oz 127 lb 4.8 oz Microbiology Reports for the Last 24 Hours: Microbiology 12/24/23 18:08 Blood Blood Culture - Preliminary 12/24/23 17:40 Blood Blood Culture - Preliminary 12/25/23 14:28 Bronchial Washings - Bronchial Bronchoalveolar Lavage Culture - Preliminary 12/25/23 14:28 Transbronchial Biopsy - Biopsy Surgical Biopsy Culture - Preliminary Constitutional: Present severe distress Head: Present normocephalic and atraumatic ENT: Present normal exam, normal oropharynx and mucous membranes moist Neck: Present normal inspection and full ROM Respiratory: Present respiratory distress and rhonchi; Absent wheezes or able to speak in complete sentences Cardiac: Present S1/S2, Tachycardia and radial pulses present GI: Present soft and distention; Absent tenderness or guarding Rectal (female): Present deferred (female): Present deferred Skin: Present intact; Absent cyanosis or jaundice Neuro: Present alert, awake and oriented x 3 Extremities: Present normal inspection; Absent clubbing or cyanosis Psychiatric: Present normal affect and cooperative Assessment and Plan *Assessment and plan (1) Sepsis without septic shock: Status: Acute Category: Medical Code(s): A41.9 - Sepsis, unspecified organism (2) Right lower lobe pneumonia: Status: Acute Qualifiers: Pneumonia type: due to unspecified organism Qualified Code(s): J18.9 - Pneumonia, unspecified organism Category: Medical Code(s): J18.9 - Pneumonia, unspecified organism (3) CAP (community acquired pneumonia): Status: Acute Category: Medical Code(s): J18.9 - Pneumonia, unspecified organism Plan Ms. Hameed is a 38-year-old female significant smoking history recent history of flu on 11/25/2023 managed as an outpatient basis presented With respiratory distress at that time discharged home on prednisone 60 for 3 days Tamiflu and albuterol inhalers presented to the ER again with worsening respiratory distress found to have concerning right lower lobe pneumonia and was eventually admitted for further management and pulmonary was called for further evaluation. She has received multiple rounds of antibiotics including cefdinir and azithromycin. Patient admits continued worsening respiratory symptoms throughout her clinical course. Neutrophilic leukocytosis upon admission, improving. Patient on admission was initiated on vancomycin and Zosyn. CTA upon this admission., Dense right lower lobe consolidative changes along with small loculated pleural effusion. Chest x-ray from 11/25/2023 did not show any significant right lower lobe airspace disease and subsequent imaging showed continued worsening. The noted findings are likely infectious than malignancy at this point of time given acute presentation. On initial examination though patient on room air, appeared to be in severe respiratory distress, not able to speak in complete sentences. No significant wheezing noted on auscultation. Rhonchi. Biopsy no growth so far. BAL stain and cultures negative. Repeat chest x-ray no significant change. Interval examination: No acute respiratory vents overnight. Continued to remain on room air. Plan: Wean antibiotics to Augmentin twice daily x 14 days. Blood culture still pending. Patient otherwise stable to be discharged home from pulmonary standpoint with a clinic follow-up in 5 days. Continue DuoNebs every 6 hours scheduled # Thank you for involving pulmonary in this patient care. Will follow the patient in pulmonary clinic in 5 days post discharge.
--- NOTE | 2023-12-28 10:01 | DIET.NUTRFU ---
No BM since admit on 12/23, she takes miralax at home, will consult provider
--- NOTE | 2023-12-28 10:44 | EXP.DC.SUM ---
General Admission date:: 12/24/23 Discharge date: 12/28/23 HPI HPI HPI: This is a 38 yo F with PMHx of COPD, former recent smoker, pulmonary nodule, depression and anxiety presented to the emergency department with initially a chief complaint of right-sided back pain . Patient reported almost a month of respiratory infections/symptoms that began with an influenza diagnosis in the first part of November. She then presented back with persistent cough and constitutional symptoms of malaise body aches. She was found to be septic and offered admission however she declined on December 20. She was given a prescription for azithromycin and Omnicef and discharged home at her request. Patient has rested over the weekend but has really felt like she has not had any improvement in after going to work today she feels significant amount of pain in the right side of her posterior rib cage/low back. Is worse with cough but hurts all the time. Patient denies cardiac type chest pain subjective fever chills hemoptysis hematochezia melena nausea vomiting diarrhea. Admitted for treatment. Hospital Course Hospital Course Hospital Course: 38 yo F with PMHx of COPD, former recent smoker, pulmonary nodule, depression and anxiety presented to the emergency department with initially a chief complaint of right-sided back pain . -Sepsis without septic shock, secondary to right lower pneumonia - resolved, dc on augmentin blood cultures negative, bronchoscopy cultures pending, pulmonary to f/u as OP f/p COPD, history of long-term smoking - stable, counselled against smoking and continue Duonebs at DC Anxiety and depression: Not currently on any medication. continue monitor as OP. Exam Data for Last 24 hours Vital signs and Labs for Last 24 Hours: Temp Pulse Resp BP Pulse Ox O2 Del Method 97.9 F 65 17 92/53 L 95 Room Air 12/28/23 08:00 12/28/23 08:00 12/28/23 08:00 12/28/23 08:00 12/28/23 08:00 12/28/23 09:00 I & O for Last 24 hours: Intake & Output 12/25/23 12/26/23 12/27/23 12/28/23 23:59 23:59 23:59 23:59 Intake Total 300 / 660 1969 1680 / 1680 120 / 120 Output Total 0 / 0 0 / 0 0 / 0 Balance 300 / 660 1970 / 2330 1680 / 1680 120 / 120 Weight 58.74 kg 59.058 kg 60.78 kg 57.742 kg Microbiology Reports for the Last 24 Hours: Microbiology 12/24/23 18:08 Blood Blood Culture - Preliminary 12/24/23 17:40 Blood Blood Culture - Preliminary 12/25/23 14:28 Bronchial Washings - Bronchial Bronchoalveolar Lavage Culture - Preliminary 12/25/23 14:28 Transbronchial Biopsy - Biopsy Surgical Biopsy Culture - Preliminary Constitutional Constitutional: no acute distress *Routine HEENT Exam Head: Present normocephalic Eye: Present EOMI and PERRL ENT: Present mucous membranes moist *Routine Neck Exam Neck: Present supple; Absent lymphadenopathy *Routine Respiratory Exam Respiratory: Present CTA bilaterally *Routine Cardiovascular Exam Cardiovascular: Present RRR *Routine Abdominal Exam Abdominal: Present soft and normoactive bowel sounds; Absent tenderness *Routine Extremities Exam Extremities: Absent cyanosis, clubbing or edema *Routine Skin Exam Skin: Present warm; Absent rash *Routine Neurological Exam Neurological: Present alert and oriented X3 Results Data Completed and Pending Labs on day of discharge: Preliminary micro results at discharge 12/24/23 18:08 Blood Culture - Preliminary Blood 12/24/23 17:40 Blood Culture - Preliminary Blood 12/25/23 14:28 Bronchoalveolar Lavage Culture - Preliminary Bronchial Washings - Bronchial 12/25/23 14:28 Surgical Biopsy Culture - Preliminary Transbronchial Biopsy - Biopsy DS: Diagnosis Discharge Diagnosis (1) Sepsis without septic shock: Status: Acute Code(s): A41.9 - Sepsis, unspecified organism (2) Right lower lobe pneumonia: Status: Acute Code(s): J18.9 - Pneumonia, unspecified organism Qualifiers: Pneumonia type: due to unspecified organism Qualified Code(s): J18.9 - Pneumonia, unspecified organism (3) CAP (community acquired pneumonia): Status: Acute Code(s): J18.9 - Pneumonia, unspecified organism Meds Home Medications and Allergies Home Medications Medication Instructions Recorded Confirmed Type benzonatate 100 mg capsule 100 mg PO TID PRN cough #20 caps 09/03/23 12/24/23 Rx azithromycin 250 mg tablet See Rx Instructions .Route 12/24/23 12/24/23 History .COMPLEX pneumonia cefdinir 300 mg capsule 300 mg PO BID pneumonia 12/24/23 12/24/23 History albuterol sulfate 90 mcg/actuation 4 inh inhalation Q4H PRN Shortness 12/25/23 12/24/23 History aerosol inhaler Of Breath Or Wheezing [id number]-[id number]-qwoosixg 250 1 tab PO DAILY 12/25/23 12/25/23 History mg-250 mg-65 mg tablet (Excedrin Extra Strength) cetirizine 10 mg tablet 10 mg PO DAILY 12/25/23 12/25/23 History melatonin 5 mg tablet 5 mg PO HS 12/25/23 12/25/23 History acetaminophen 325 mg-DM 10 mg/10 20 ml PO Q4H PRN cold symptoms 12/28/23 Rx mL oral liquid (Robitussin #118 mL Cough-Sore Throat) amoxicillin 875 mg-potassium 1 tab PO BID 7 days #14 tabs 12/28/23 Rx clavulanate 125 mg tablet ipratropium 0.5 mg-albuterol 3 mg 3 ml inhalation Q6RT 14 days #120 12/28/23 Rx (2.5 mg base)/3 mL nebulization mL soln New Prescriptions to Start Prescriptions: acetaminophen-DM [Robitussin Cough-Sore Throat] Mike,Roean amoxicillin-pot clavulanate Mike,Irfan ipratropium-albuterol Mike,Irfan Allergies Allergy/AdvReac Type Severity Reaction Status Date / Time No Known Allergies Allergy Verified 12/24/23 20:26 Discharge Plan Disposition Patient Disposition: Home, Self-Care Condition: Good Discharge Order Discharge Orders: Discharge Order (Routine); Ordered 12/28/23 Ordered By: Kristie Mckeon Follow up Plan Follow up with: Mary Carmen Alanis PA [Primary Care Provider] - 01/03/24 2:00 pm Monika Smart MD [Physician] - 01/07/24 1:15 pm Prescriptions/Medication Reconciliation: New ipratropium-albuterol 0.5 mg-3 mg(2.5 mg base)/3 mL Solution For Nebulization 3 ml inhalation Q6RT 14 Days Qty: 120 0RF amoxicillin-pot clavulanate 875-125 mg Tablet 1 tab PO BID 7 Days Qty: 14 0RF Robitussin Cough-Sore Throat 325-10 mg/10 mL liquid 20 ml PO Q4H PRN (Reason: cold symptoms) Qty: 118 0RF Continued cefdinir 300 mg capsule 300 mg PO BID azithromycin 250 mg tablet See Rx Instructions .ROUTE .COMPLEX Rx Instructions: For 250 mg dose pack: take 500 mg today (day 1), then 250 mg for 4 days (days 2-5) cetirizine 10 mg Tablet 10 mg PO DAILY Excedrin Extra Strength 250-250-65 mg Tablet 1 tab PO DAILY melatonin 5 mg Tablet 5 mg PO HS albuterol sulfate 90 mcg/actuation HFA aerosol inhaler 4 inh inhalation Q4H PRN (Reason: Shortness Of Breath Or Wheezing) Rx Instructions: 4 puffs every 4 hours for 48 hours then as needed for shortness of breath or wheezing following benzonatate 100 mg capsule 100 mg PO TID PRN (Reason: cough) Qty: 20 0RF Problem Reconciliation Problems Reviewed?: Yes Patient Discharge Instructions ACTIVITY: Ambulate as tolerated DIET: continue same diet Patient Instructions: DI for Shortness of Breath Providers Primary Care Provider: Mary Carmen Alanis Admit Provider: Ervin Mcelroy Attending Provider: Ervin Mcelroy
[2023-12-28 11:21] VITALS: PULSE 80; PULSE 89
--- NOTE | 2023-12-31 15:53 | CARE MANAGER ---
Patient called back related to hospital discharge. She states that she is ok. Needs a nebulizer as just got the medication. Is aware of follow up appointments and has other medication. Denies questions or concerns at this time. NICKI Donnelly
== END 2023-12-28 12:30 | disposition home or self-care (01) | DRG 853 ==
LOC: ER 19:54 → 2ND 23:57
PROVIDERS: Internal Medicine Pulmonary Disease; Nurse Practitioner Family; Physician Assistant; Admitting Provider Internal Medicine Adolescent Medicine; Emergency Provider Student in an Organized Health Care Education/Training Program; PCP Physician Assistant; Visit Provider Internal Medicine Adolescent Medicine
PROC: 0B9F8ZX Drainage of Right Lower Lung Lobe, Via Natural or Artificial Opening Endoscopic, Diagnostic (ICD-10-PCS; principal; 2023-12-25 14:00)
DX: A41.9 Sepsis, unspecified organism (principal); J18.9 Pneumonia, unspecified organism; J44.0 Chronic obstructive pulmonary disease with (acute) lower respiratory infection; Z87.891 Personal history of nicotine dependence; R65.20 Severe sepsis without septic shock; F41.9 Anxiety disorder, unspecified; F32.A Depression, unspecified
CPT/HCPCS: 31624; 31628; 36415; 71045; 71275; 76000; 80048; 80053; 80061; 84145; 84703; 85025; 85378; 85610; 87040; 87070; 87081; 87102; 87116; 87186; 87205; 87206; 89051; 94640; 99291; J3490; J0131; J2405; J2543; J2710; J3370; Q9967

== ENCOUNTER 2024-01-07 13:44 | Outpatient (CLI) | payer OTHER, SELFPAY ==
--- NOTE | 2024-01-07 13:47 | XR_ITS ---
FINAL REPORT CLINICAL HISTORY: PNM-RLL COMPARISON: 12/31/2023 FINDINGS: 2 views of the chest were obtained . The heart is normal in size. The mediastinum is within normal limits. There has been interval improvement in previously seen right lower lobe opacity. There is a persistent small left pleural effusion. There is no pneumothorax. Osseous structures are unremarkable. IMPRESSION: Improved but persistent right lower lobe opacity. Reviewed, Interpreted and Dictated by Eli Dickens MD Transcribed by Елена Young Authenticated and . [facility]
== END 2024-01-07 23:59 ==
LOC: RAD 13:45
PROVIDERS: PCP Physician Assistant; Visit Provider Internal Medicine Pulmonary Disease
DX: R06.02 Shortness of breath (principal)
CPT/HCPCS: 71046

== ENCOUNTER 2024-02-19 07:09 | Outpatient (CLI) | payer OTHER, SELFPAY ==
--- NOTE | 2024-02-19 07:15 | CT_ITS ---
FINAL REPORT TECHNIQUE: Axial CT images were performed from the lung apices through the upper abdomen. Coronal and sagittal reformats were submitted. This study was performed with techniques to keep radiation doses as low as reasonably achievable (ALARA). Individualized dose reduction techniques using automated exposure control or adjustment of mA and/or kV according to the patient's size were employed. CLINICAL HISTORY: Nodule 3-month follow-up COMPARISON: 12/24/2023 FINDINGS: There is no axillary adenopathy. There is no hilar or mediastinal mass or adenopathy. Heart size is normal. There is no pericardial or pleural effusion. Limited images of the upper abdomen are unremarkable. There has been marked interval improvement in the right lower lobe consolidation since the prior CT of December 2023. There is mild persistent atelectasis or scarring in the right lung base. IMPRESSION: Marked interval improvement in the right lower lobe consolidation since December 2023, with mild persistent atelectasis or scarring present. Reviewed, Interpreted and Dictated by Duran Bucio III, MD Transcribed by Sonia Talley Authenticated and [facility]
[2024-02-19] MEDS: ALBUTEROL 0.083% 2.5 MG/3 ML NEB IH (08:30)
== END 2024-02-19 23:59 | disposition home or self-care (01) ==
LOC: RAD 07:10
PROVIDERS: PCP Physician Assistant; Visit Provider Internal Medicine Pulmonary Disease
DX: R91.8 Other nonspecific abnormal finding of lung field (principal); R06.09 Other forms of dyspnea
CPT/HCPCS: 71250; 94060; 94618; 94726; 94729

== ENCOUNTER 2025-05-13 15:19 | Emergency (ER) | payer OTHER, SELFPAY ==
[2025-05-13 15:20] VITALS: BP 130/83; PULSE 106; RESP 18; TEMP 37.2; O2SAT 99; BMI 27.3
--- NOTE | 2025-05-13 15:21 | HMH.EDGENADL ---
Discharge Plan Disposition Patient Disposition: Home, Self-Care Condition: Good Prescriptions Prescriptions: No Action pantoprazole [Protonix] 40 mg tablet,delayed release (DR/EC) 40 mg PO DAILY Qty: 30 2RF cetirizine 10 mg Tablet 10 mg PO DAILY Excedrin Extra Strength 250-250-65 mg Tablet 1 tab PO DAILY melatonin 5 mg Tablet 5 mg PO HS albuterol sulfate 90 mcg/actuation HFA aerosol inhaler 4 inh inhalation Q4H PRN (Reason: Shortness Of Breath Or Wheezing) Rx Instructions: 4 puffs every 4 hours for 48 hours then as needed for shortness of breath or wheezing following ipratropium-albuterol 0.5 mg-3 mg(2.5 mg base)/3 mL Solution For Nebulization 3 ml inhalation Q6RT 14 Days Qty: 120 0RF Robitussin Cough-Sore Throat 325-10 mg/10 mL liquid 20 ml PO Q4H PRN (Reason: cold symptoms) Qty: 118 0RF Referrals Follow up/Referrals: Martín Hansen DO [Staff Physician, Orthopedics] - See instructions Provider,Referral, [Primary Care Provider, Medical] - See instructions Activity Restrictions/Add. Instructions Additional Instructions/Restrictions: Please leave your finger in a splint till seen by orthopedics. Please call to make your appointment. If you have any persistent new or worsening signs or symptoms follow-up with your PCP return to the ER as needed. Clinical Impressions Clinical Impression: Closed fracture of phalanx of right ring finger Qualifiers: Encounter type: initial encounter Phalanx: middle Fracture alignment: displaced Qualified Code(s): S62.624A - Displaced fracture of middle phalanx of right ring finger, initial encounter for closed fracture Print Language Print Language: Kiswahili Discharge ED Provider: Danny Mantilla General Adult HPI <RADHA Cruz - Last Filed: 05/13/25 15:52> General Chief complaint: PAIN Stated complaint: L hand Ring Finger Hurt Time Seen by Provider: 05/13/25 15:21 History of Present Illness HPI narrative: Patient presents for evaluation of a left fourth finger injury. Patient was trying to stop her son from falling and somehow injured her left fourth digit. It is turned black and blue overnight. She retains full range of motion and is neurovascularly intact and no other injuries. Related Data Home Medications ?Medication ?Instructions ?Recorded ?Confirmed albuterol sulfate 90 mcg/actuation 4 inh inhalation Q4H PRN Shortness 12/25/23 02/19/24 aerosol inhaler Of Breath Or Wheezing vipqobl-kxlgwvxsishxx-dhzfjqob 250 1 tab PO DAILY 12/25/23 02/19/24 mg-250 mg-65 mg tablet (Excedrin Extra Strength) cetirizine 10 mg tablet 10 mg PO DAILY 12/25/23 02/19/24 melatonin 5 mg tablet 5 mg PO HS 12/25/23 02/19/24 Previous Rx's ?Medication ?Instructions ?Recorded acetaminophen 325 mg-DM 10 mg/10 20 ml PO Q4H PRN cold symptoms 12/28/23 mL oral liquid (Robitussin #118 mL Cough-Sore Throat) ipratropium 0.5 mg-albuterol 3 mg 3 ml inhalation Q6RT 14 days #120 12/28/23 (2.5 mg base)/3 mL nebulization mL soln pantoprazole 40 mg tablet,delayed 40 mg PO DAILY #30 tabs 01/07/24 release (Protonix) Allergies Allergy/AdvReac Type Severity Reaction Status Date / Time No Known Allergies Allergy Verified 02/19/24 10:24 [facility] <RADHA Cruz - Last Filed: 05/13/25 15:52> [facility] Disclaimer: The information contained in this section may have been updated after the patient was seen, as this information can be updated by other users. Medical History Dyspnea on exertion History of smoking 10-25 pack years COPD (chronic obstructive pulmonary disease) Family history of transposition of great arteries Abnormal EKG Palpitations Restless sleeper Daytime somnolence Family history of heart disease Tobacco dependence syndrome History of COVID-19 Dyspnea Depression Anxiety Surgical History H/O tubal ligation Family History Other Anemia Cancer Coronary artery disease Heart attack Hyperlipidemia Hypertension Substance abuse Social History Smoking Status: Former smoker tobacco type: cigarettes packs per day: 1 smoking status stop date: stopped 3 weels ago alcohol intake: never substance use type: denies use current occupational status: employed Travel in the last 8 weeks?: None household members: spouse and family housing: house Have you lived/traveled outside [place] in past 30 days?: No Contact w/someone who lives/traveled outside [place] past 30 days?: No Exposure to someone with infectious disease in past 14 days?: No Do you have a fever (greater than 100.4 F or 38 C)?: No Have you tested positive for COVID-19?: No Exposed to someone with COVID-19 in past 14 days?: No Do you have a sore throat?: No Do you have a cough?: No Do you have any weakness?: No Do you have any diarrhea?: No Are you experiencing any unusual bleeding?: No Do you have any muscle aches/pain?: No Do you have any abdominal pain?: No Are you experiencing loss of taste or smell?: No Other Medical History Have you received the Flu Vaccine for this season: No Have you received the Pneumonia Vaccine: No <RADHA Cruz - Last Filed: 05/13/25 15:52> ROS Obtained: Yes Systems reviewed as appropriate & no additional complaints except as documented Physical Exam <RADHA Cruz - Last Filed: 05/13/25 15:52> General General appearance: alert Respiratory Respiratory exam: Present normal lung sounds bilaterally Cardiovascular Cardiovascular exam: Present regular rate Neurological Exam Neurological exam: Present alert and oriented X3 Medical Decision Making <RADHA Cruz - Last Filed: 05/13/25 15:52> Medical Records Medical records reviewed: Yes I reviewed the patient's medical records. Screening: Per USPSTF and CDC recommendations, given the prevalence of disease in our region, it is our hospital?s policy to screen for HIV and viral Hepatitis for all patients aged 18 and over and those with ongoing risk factors. [place] Inquiry Pt receiving controlled substance: No Vital Signs: 05/13/25 15:20 05/13/25 15:20 05/13/25 15:41 Temperature 99.0 F 99.0 F 99.0 F Temperature Source Oral Oral Pulse Rate 106 H Pulse Rate [Left Radial] 101 H Pulse Rate [Right] 106 H Respiratory Rate 18 18 13 Blood Pressure 130/83 Blood Pressure [Left Arm] 130/83 Blood Pressure [Right Arm] 130/83 Blood Pressure Mean [Left Arm] 98 Blood Pressure Mean [Right Arm] 98 02 Sat by Pulse Oximetry 99 99 98 Oxygen Delivery Method Room Air Room Air Orders (Tests/Meds): ED MEDICATIONS Discontinued Medications Generic Name Dose Route Start Last Admin Trade Name Tracy PRN Reason Stop Dose Admin Acetaminophen 1,000 mg 05/13/25 15:29 05/13/25 15:44 Acetaminophen 500mg Tab PO 05/13/25 15:30 1,000 mg ONCE ONE Administration Ibuprofen 800 mg 05/13/25 15:29 05/13/25 15:43 Ibuprofen 400 Mg Tablet PO 05/13/25 15:30 800 mg ONCE ONE Administration ORDERS Category Date Time Status Hand XR left minimum 3 views [XR hand LT min 3V] Stat Exams 05/13/25 15:26 Taken HIV Combo Stat Lab 05/13/25 15:50 Ordered Hepatitis C Ab Qual. W/ RFX Stat Lab 05/13/25 15:50 Ordered Medical Decision Narrative: In summary patient is a 39-year-old female who presents to the emergency department for evaluation of left fourth finger injury. Patient is hemodynamically stable upon arrival, afebrile. Physical exam is remarkable for ecchymosis of the entirety of the left fourth finger and extends proximally dorsally but not in the palmar surface. She retains full range of motion is neurovascular intact distally. Differential diagnosis includes fracture versus soft tissue injury. Initial workup will be conducted with plain film x-rays. Initial interventions include Tylenol and ibuprofen. Initial workup reviewed by me and patient has an oblique fracture of the middle phalanx slightly displaced. Given the oblique nature reduction not attempted. Given this patient is appropriate discharge with a finger splint placed by myself and referral to orthopedics for further evaluation and care. <Danny Mantilla MD - Last Filed: 05/13/25 16:01> Vital Signs: 05/13/25 15:20 05/13/25 15:20 05/13/25 15:41 Temperature 99.0 F 99.0 F 99.0 F Temperature Source Oral Oral Pulse Rate 106 H Pulse Rate [Left Radial] 101 H Pulse Rate [Right] 106 H Respiratory Rate 18 18 13 Blood Pressure 130/83 Blood Pressure [Left Arm] 130/83 Blood Pressure [Right Arm] 130/83 Blood Pressure Mean [Left Arm] 98 Blood Pressure Mean [Right Arm] 98 02 Sat by Pulse Oximetry 99 99 98 Oxygen Delivery Method Room Air Room Air Orders (Tests/Meds): ED MEDICATIONS Discontinued Medications Generic Name Dose Route Start Last Admin Trade Name Tracy PRN Reason Stop Dose Admin Acetaminophen 1,000 mg 05/13/25 15:29 05/13/25 15:44 Acetaminophen 500mg Tab PO 05/13/25 15:30 1,000 mg ONCE ONE Administration Ibuprofen 800 mg 05/13/25 15:29 05/13/25 15:43 Ibuprofen 400 Mg Tablet PO 05/13/25 15:30 800 mg ONCE ONE Administration ORDERS Category Date Time Status Hand XR left minimum 3 views [XR hand LT min 3V] Stat Exams 05/13/25 15:26 Taken HIV Combo Stat Lab 05/13/25 15:50 Ordered Hepatitis C Ab Qual. W/ RFX Stat Lab 05/13/25 15:50 Ordered Medical Decision Narrative: In summary patient is a 39-year-old female who presents to the emergency department for evaluation of left fourth finger injury. Patient is hemodynamically stable upon arrival, afebrile. Physical exam is remarkable for ecchymosis of the entirety of the left fourth finger and extends proximally dorsally but not in the palmar surface. She retains full range of motion is neurovascular intact distally. Differential diagnosis includes fracture versus soft tissue injury. Initial workup will be conducted with plain film x-rays. Initial interventions include Tylenol and ibuprofen. Initial workup reviewed by me and patient has an oblique fracture of the middle phalanx slightly displaced. Given the oblique nature reduction not attempted. Given this patient is appropriate discharge with a finger splint placed by myself and referral to orthopedics for further evaluation and care. I was consulted by the ELENA, and we discussed the complexity of the problems being addressed. I approved the treatment and management plan for this patient's care in the emergency department, thus performing a substantive portion of the medical decision making. Danny Mantilla MD Critical Care <RADHA Cruz - Last Filed: 05/13/25 15:52> Critical Care Time Critical Care Time: No
--- NOTE | 2025-05-13 15:26 | XR_ITS ---
FINAL REPORT CLINICAL HISTORY: Fourth finger injury Pain around 4th metacarpal head FINDINGS: LEFT HAND Three views were obtained. There is a slightly displaced fracture of the middle phalanx fourth finger with volar displacement of the dominant distal fragment. There is no extension to the joint space. There is soft tissue edema about the fourth finger. IMPRESSION: Fracture as above. Reviewed, Interpreted and Dictated by Eli Dickens MD Transcribed by Hui Hdez Authenticated and . [facility]
--- OUTSIDE RECORDS SUMMARY | 2025-05-13 15:30 | XMS_ITS | Clinical Summary ---
Author Organization Healthcare Address [address] [place] [address] Care Team Providers Care Senior Infrastructure Engineer Name Role Phone Radha Paulino KAI Primary Care Provider [phone] Allergies No known active allergies Medications buPROPion SR (Wellbutrin SR) 150 MG 12 hr tabletIndication s:Depression with anxiety Take 1 tablet (150 mg total) by mouth 2 (two) times a day. Do not crush, chew, or split. 60 tablet 1 02/21/2023 Active Active Problems Problem Noted Date Diagnosed Date Depression 04/19/2015 Family History Medical History Relation Name Comments Cardiac Devices Pacemaker Present Father Heart disease Father Leukemia Father Lung cancer Father heart disease, leukemia Heart disease Mother Breast cancer Paternal Grandmother Heart disease Sister Ovarian cancer Sister Relation Name Status Comments Father Mother Paternal Grandmother Sister Social History Tobacco Use Types Packs/Day Years Used Date Smoking Tobacco: Every Day Cigarettes 1 20 Smokeless Tobacco: Never Alcohol Use Standard Drinks/Week Comments Yes 0 (1 standard drink = 0.6 oz pur e alcohol) Humiliation, Afraid, Rape, and Kick questionnair e Answer Date Recorded Within the last year, have y ou been afraid of your partner or ex-partner? No 01/22/2023 Within the last year, have y ou been humiliated or emotionally abused in other ways by your partner or ex-partner? No Within the last year, have y ou been kicked, hit, slapped, or otherwise physically hurt by your partner or ex-partner? No 01/22/2023 Within the last year, have y ou been raped or forced to have any kind of sexual activity by your partner or ex-partner? No 01/22/2023 Social Connection and Isolation Panel Answer Date Recorded In a typical week, how many times do you talk on the phone with family, friends, or neighbors? More than three times a week 01/22/2023 How often do you get togethe r with friends or relatives? Never 01/22/2023 How often do you attend chur ch or jewish services? Never 01/22/2023 Do you belong to any clubs o r organizations such as mormonism groups, unions, fraternal or athletic groups, or school groups? No 01/22/2023 How often do you attend meet ings of the clubs or organizations you belong to? Never 01/22/2023 Are you , , di vorced, , never , or living with a partner? Living with partner 01/22/2023 AUDIT-C Answer Date Recorded Q1: How often do you have a drink containing alc ohol? Monthly or less 01/22/2023 Q2: How many drinks containi ng alcohol do you have on a typical day when you are drinking? 1 or 2 01/22/2023 Q3: How often do you have si x or more drinks on one occasion? Never 01/22/2023 Overall Financial Resource Strain (CARDIA) Answe r Date Recorded How hard is it for you to pa y for the very basics like food, housing, medical care, and heating? Not hard at all 01/22/2023 PHQ-2 Answer Date Recorded Patient Health Questionnaire-2 Score 2 02/21/2023 [facility] - Occupational Stress Questionnaire Answer Date Recorded Do you feel stress - tense, restless, nervous, or anxious, or unable to sleep at night because your mind is troubled all the time - these days? To some extent 01/22/2023 Exercise Vital Sign Answer Date Recorde d On average, how many days pe r week do you engage in moderate to strenuous exercise (like a brisk walk)? 0 days 01/22/2023 On average, how many minutes do you engage in exercise at this level? 0 min 01/22/2023 Hunger Vital Sign Answer Date Recorded Within the past 12 months, y ou worried that your food would run out before you got the money to buy more. Never true 01/23/20 23 Within the past 12 months, t he food you bought just didn't last and you didn't have money to get more. Never true 01/22/2023 PRAPARE - Transportation Answer Date Re corded In the past 12 months, has l ack of transportation kept you from medical appointments or from getting medications? No 01/13 In the past 12 months, has l ack of transportation kept you from meetings, work, or from getting things needed for daily living? No 01/22/2023 Housing Stability Vital Sign Answer Adrián e Recorded In the last 12 months, was t here a time when you were not able to pay the mortgage or rent on time? No 01/22/2023 Number of Places Lived in the Last Year Not on f ile 01/22/2023 In the last 12 months, was t here a time when you did not have a steady place to sleep or slept in a detention (including now)? No 01/22/2023 PHQ-9 Answer Date Recorded Patient Health Questionnaire-9 Score 11 01/22/2023 PHQ-2A Answer Date Recorded Patient Health Questionnaire-2 Score 2 02/21/2023 Comments Unknown Sex and Gender Information Value Date Recorded Sex Assigned at Not on file Legal Sex Female 6:12 PM EDT Gender Identity Not on file Sexual Orientation Not on file Last Filed Vital Signs Vital Sign Reading Time Taken Comments Blood Pressure 120/84 02/21/2023 3:23 PM EDT Pulse 86 02/21/2023 3:23 PM EDT Temperature - - Respiratory Rate - - Oxygen Saturation 98% 02/21/2023 3:23 PM EDT Inhaled Oxygen Concentration - - Weight 56.8 kg (125 lb 3.5 oz) 02/21/2023 3:23 P M EDT Height 154.9 cm (5' 1 ) 02/21/2023 3:23 PM EDT Body Mass Index 23.66 02/21/2023 3:23 PM EDT Plan of Treatment Health Maintenance Due Date Last Done Comments [facility]-Infant/Child/Adol SDOH Screenings 1983 [facility]-Varicella Vaccines (1 of 2 - 13+ 2-dose series) 1996 HPV Vaccines (1 - 3-dose series) 1998 [facility]- SDOH Screenings 2001 [facility]-Adult SDOH Screenings 2001 [facility]-DTaP,Tdap,and Td Vaccines (1 - Tdap) 2002 [facility]-Hepatitis B Vaccines (1 of 3 - 19+ 3-dose series) 2002 [facility]-Depression Screening 02/22/2024 023, 01/22/2023 [facility]-NOQTB-10 Vaccine (3 - 2023- season) 2024 06/10/2021, 05/13/2021 [facility]-Influenza Vaccine (#1) 2025 [facility]-Pap Smear 02/21/2026 02/21/2023 [facility]-Cervical Cancer Screening 02/22/2028 [facility]-HPV/Cotest 02/22/2028 02/21/2023 [facility]-Zoster Vaccines (1 of 2) 2033 [facility]-HIV Screening Completed 01/22/2023 [facility]-Hepatitis C Screening Completed 01/22/2023 [facility]-HIB Vaccines Aged Out No longer e ligible based on patient's age to complete this topic [facility]-Hepatitis A Vaccines Aged Out No longer eligible based on patient's age to complete this topic [facility]-IPV Vaccines Aged Out No longer e ligible based on patient's age to complete this topic [facility]-Pneumococcal Vaccine: Pediatrics (0 to 5 Years) and At-Risk Patients (6 to 49 Years) Aged Out No longer eligible b ased on patient's age to complete this topic [facility]-Rotavirus Vaccines Aged Out No lo nger eligible based on patient's age to complete this topic Procedures Procedure Name Priority Date/Time Associated Diagnosis Comments PAP TEST - CYTOLOGY Routine 02/21/2023 3 :36 PM EDT Encounter for Pap smear of cervix with HPV DNA cotesting ACUTE HEPATITIS PANEL Routine 01/22/2023 1:18 PM EDT Weight loss, unintentional HIV 1/2 ANTIBODY/ANTIGEN SCREEN WITH REFLEX TO HIV I/II DIFFERENTIATION Routine 01/22/2023 1:18 PM EDT Weight loss, unintentional from Last 3 Months or Most Recently Relevant to Health Maintenance Results * Pap Test (02/21/2023 3:36 PM EDT) Case Report Cytology Case: [id number] Authorizing Provider: Radha Paulino APRN Collected: 02/21/2023 1536 Ordering Location: [facility] & Received: 02/21/2023 1536 [facility] First Screen: Tamika Schaeffer Specimen: ThinPrep Pap Test, Liquid-Based Cervical/Vaginal, CERVICAL/VAGINAL 02/28/2023 4:03 PM EDT [facility] Interpretation NEGATIVE FOR INTRAEPITHELIAL LESION OR MALIGNANCY 02/28/2023 4:03 PM EDT [facility] at 1603 EDT Specimen Adequacy Satisfactory for evaluation; endocervical/mendoza sformation zone component present. Slide scanned and imaged by ThinPrep Imaging System with manual review of all selected gordon. 02/28/2023 4:03 PM EDT [facility] Cervical cytology is a screening test primarily for squamous cancers and precursors and has associated false negative and positive results. New technologies such as liquid based sampling may decrease but will not eliminate all false negative results. Regular screening and follow-up of unexplained clinical signs and symptoms are recommended to minimize false negative results. Please see the ASCCP website (www.asccp.org)fo r followup recommendations. If HPV testing was requested, correlation with the results is suggested (please call Microbiology at [phone] for results). 02/28/2023 4:03 PM EDT [facility] Menstrual Status Cyclic 02/29/20 4:03 PM EDT [facility] History of Hysterectomy Not Applicable 02/28/2023 4:03 PM EDT [facility] Contraceptive History Not Applicable 02/28/2023 4:03 PM EDT [facility] Screening Type Routine Screen 2022 4:03 PM EDT [facility] High Risk? No 02/28/2023 4:03 PM EDT [facility] HPV Testing Requested? Request HPV Testing Regardless of Pap Test Findings 02/28/2023 4:03 PM EDT [facility] Previous Cancer History No 02/28/2023 4:03 PM EDT [facility] Clinical Information Z12.4 - Encounter for Pap smear of cervix with HPV DNA cotesting [ICD-10-CM] 02/28/2023 4:03 PM EDT [facility] Last Menstrual Period 02/12/2023 02/28/2023 4:03 PM EDT [facility] Swab Vaginal and cervical cytologic material / Unknown Non-blood Collection / Unknown 02/21/2023 3:36 PM EDT 02/21/2023 3:36 PM EDT Radha Paulino APRN LAB CYTOLOGY ORDERABLES Final R esult Performing Organization Address City/[facility]/ZIP Co de Phone Number [facility] [address] [place] [address] * HIV 1 & 2 Antibody/Antigen Screen (01/22/2023 1:18 PM EDT) Pathologist [facility] HIV 1 & 2 Antibody/Antigen Screen Non Reactive Non Reactive 01/22/2023 6:45 PM EDT [facility] Comment:Screening for HIV 1 & 2 antibodies, and P24 antigen is NONREACTIVE. No confirmatory testing is required. Blood Venous blood specimen / Unknown Venipuncture / Unknown 01/22/2023 1:18 PM EDT 01/22/2023 1:18 PM EDT Radha Paulino APRN LAB BLOOD ORDERABLES Final Resu lt Performing Organization Address [facility] Co de Phone Number [facility] [address] [place] [address] * Acute Hepatitis Panel (01/22/2023 1:18 PM EDT) [facility] Hepatitis B Surf Antigen Negative Negative 01/22/2023 7:10 PM EDT [facility] Hepatitis C Antibody Negative Negative 01/22/2023 7:10 PM EDT [facility] Hepatitis A Antibody IgM Negative Negative 01/22/2023 7:10 PM EDT [facility] Hepatitis B Core Antibody IgM Negative Negative 01/22/2023 7:10 PM EDT [facility] Blood Venous blood specimen / Unknown Venipuncture / Unknown 01/22/2023 1:18 PM EDT 01/22/2023 1:18 PM EDT Radha Paulino APRN LAB BLOOD ORDERABLES Final Resu lt Performing Organization Address City/[facility]/ZIP Co de Phone Number [facility] [address] [place] [address] from Last 3 Months or Most Recently Relevant to Health Maintenance Insurance [employer] Care Teams Senior Infrastructure Engineer Relationship Specialty Start Date End Date Radha Paulino APRN [address] [place] [address] PCP - General Family Medicine 01/22/23
--- OUTSIDE RECORDS SUMMARY | 2025-05-13 15:30 | XMS_ITS | Encounter Summary ---
Author Organization Healthcare Address [address] [place] [address] Care Team Providers Care Loading Checker Name Role Phone Radha Paulino APRN Primary Care Provider Encounter Details Date Type Department Care Team (Late st Contact Info) Description 01/22/2023 Outside Procedure External Location [address] [place] [address] Radha Paulino APRN [address] [place] [address] Social History Tobacco Use Types Packs/Day Years [...] often do you attend chur ch or mormonism services? Never 01/22/2023 Do you belong to any clubs o r organizations such as catholic groups, unions, fraternal or athletic groups, or [...] Date Recorded Patient Health Questionnaire-2 Score 2 01/22/2023 [facility] - Occupational Stress Questionnaire Answer Date Recorded [...] place to sleep or slept in a snf (including now)? No 01/22/2023 PHQ-9 Answer Date Recorded Patient Health Questionnaire-9 Score 11 01/22/2023 Comments Unknown Sex and Gender Information Value Date Recorded Sex Assigned at Not on file Legal Sex Female 6:12 PM EDT Gender Identity Not on file Sexual Orientation Not on file COVID-19 Exposure Response Date Recorded In the last 10 days, have yo u been in contact with someone who was confirmed or suspected to have Coronavirus/COVID-19? No / Unsure 01/22/2023 12:24 PM EDT documented as of this encounter Functional Status * AUDIT-C Score Answer Date of Assessment Author 1 01/22/2023 1:02 PM EDT Florentino Paulino APRN * Question Answer Date of Assessment Author Q1: How often do you have a drink containing alcohol? Monthly or less 01/22/2023 1:02 PM MICHAT Radha Paulino APRN Q2: How many drinks containing alcohol do you have on a typical day when you are drinking? 1 or 2 01/22/2023 1:02 PM EDT Radha Paulino APR N Q3: How often do you have six or more drinks on one occasion? Never 01/22/2023 1:02 PM EDT Radha Paulino, APR N * Over the past 2 weeks, how often have you been bothered by any of the following problems? Question Answer Date of Assessment Author Little interest or pleasure in doing things Several days 01/22/2023 12:46 PM EDT Lindsay Bullock Feeling down, depressed, or hopeless Several days 01/22/2023 12:46 PM EDT Lindsay Bullock Patient Health Questionnaire -2 Score 2 01/22/2023 12:46 PM EDT Lindsay Bullock * Question Answer Date of Assessment Author Trouble falling or staying asleep, or sleeping too much Nearly every day 01/22/2023 12:46 PM EDT Lindsay Dennis Feeling tired or having little energy Nearly every day 01/22/2023 12:46 PM EDT Lindsay Bullock Poor appetite or overeating Several days 01/22/2023 12 :46 PM EDT Lindsay Bullock Feeling bad about yourself - or that you are a failure or have let yourself or your family down Not at all 01/22/2023 12:46 PM EDT Lindsay Bullock Trouble concentrating on things, such as reading the newspaper or watching television Several days 01/22/2023 12:46 PM EDT Lindsay Bullock Moving or speaking so slowly that other people could have noticed? Or the opposite - being so fidgety or restless that you have been moving around a lot more than usual. Several days 01/22/2023 12:46 PM EDT Lindsay Bullock Thoughts that you would be better off or hurting yourself in some way Not at all 01/22/2023 12:46 PM EDT Lindsay Bullock Patient Health Questionnaire-9 Score 11 01/22/2023 12:46 PM EDT Lindsay Bullock * How difficult have these problems made it for you to do your work, take care of things at home, or get along with other people? Answer Date of Assessment Author Somewhat difficult 01/22/2023 12:46 PM EDT Lindsay Ortiz documented as of this encounter Plan of Treatment Not on file documented as of this encounter Procedures Procedure Name Priority Date/Time Associated Diagnosis Comments XR CHEST 2 VIEWS 01/22/2023 1:46 PM EDT documented in this encounter Results * XR Chest 2 Views (01/22/2023 1:46 PM EDT) Anatomical Region Laterality Modality Chest Digital Radiogra phy 01/22/2023 1:46 PM EDT Narrative 01/22/2023 3:01 [place] [address] Name: LIZZIE WILL Exam Date: 01/22/2023 : 1985 Age 37 Gender: F Physician: RADHA PAULINO Facility: [facility] Facility HSV: Outpatient Exam: CHEST 2 VIEWS CHEST, 2 VIEWS HISTORY: Unintentional weight loss COMPARISON: None FINDINGS: The heart and mediastinum are unremarkable. The lungs are clear without evidence of acute infiltrate or effusion. The bony structures are intact. IMPRESSION: No acute process. Images reviewed, interpreted and dictated by Dr. Ceron. Transcribed by Rojelio Pena PA-C Dictated By: WM CERON Transcribed By: Wm Ceron Transcribed On: 01/22/2023 2:49 PM Electronically signed by: WM CERON 01/22/2023 Thank you for referring LIZZIE WILL to [facility]. Legally authenticated by POPE WM Pringle 2023-01-22 14:49:52 Procedure Note Provider, [facility] [place] - 01/22/2023 [place] [address] Name: LIZZIE WILL Exam Date: 01/22/2023 : 1985 Age 37 Gender: F Physician: RADHA PAULINO Facility: [facility] Facility HSV: Outpatient Exam: CHEST 2 VIEWS CHEST, 2 VIEWS HISTORY: Unintentional weight loss COMPARISON: None FINDINGS: The heart and mediastinum are unremarkable. The lungs are clear without evidence of acute infiltrate or effusion. The bony structures are intact. IMPRESSION: No acute process. Images reviewed, interpreted and dictated by Dr. Ceron. Transcribed by Rojelio Pena PA-C Dictated By: WM CERON Transcribed By: Wm Ceron Transcribed On: 01/22/2023 2:49 PM Electronically signed by: WM CERON 01/22/2023 Thank you for referring CURRENTLIZZIE to [facility]. Legally authenticated by POPE WM Pringle 2023-01-22 14:49:52 Radha Paulino APRN IMG XR PROCEDURES Final Result documented in this encounter Visit Diagnoses Not on filedocumented in this encounter Additional Health Concerns Assessment Noted Time PHQ-9 Depression Total Score: 11 023 12:46 PM EDT A fall risk assessment has been complete d for the patient 01/22/2023 12:55 PM EDT documented as of this encounter Care Teams Loading Checker Relationship Specialty Start Date End Date Radha Paulino APRN [address] [place] [address] PCP - General Family Medicine 01/22/23 documented as of this encounter
--- OUTSIDE RECORDS SUMMARY | 2025-05-13 15:30 | XMS_ITS | Clinical Summary ---
Author Organization [facility] Address [address] [place] [address] Phone [email or web address] Care Team Providers Care Wall Attendant Name Role Phone Unavailable Primary Care Provider Unavailabl e Allergies No known active allergies Medications No known medications Active Problems No known active problems Social History Tobacco Use Types Packs/Day Years Used Date Smoking Tobacco: Every Day Smokeless Tobacco: Never Intimate Partner Violence Answer Date R ecorded Insults You Not on file 01/28/2021 Threatens You Not on file 01/28/2021 Screams at You Not on file 01/28/2021 Physically Hurt Not on file 01/28/2021 Intimate Partner Violence Score Not on file 01/28/2021 Stress Answer Date Recorded Stress in your Life Not on file 08/20/2024 Dealing with Stress 3 08/20/2024 Comments Unknown Sex and Gender Information Value Date Recorded Sex Assigned at Not on file Legal Sex Female 3:53 AM CDT Gender Identity Not on file Sexual Orientation Not on file Last Filed Vital Signs Vital Sign Reading Time Taken Comments Blood Pressure - - Pulse 91 06/30/2021 12:57 PM EDT Temperature 37 C (98.6 F) 11/22/2021 11:17 AM EST Respiratory Rate - - Oxygen Saturation 98% 06/30/2021 12:57 PM EDT Inhaled Oxygen Concentration - - Weight - - Height - - Body Mass Index - - Plan of Treatment Health Maintenance Due Date Last Done Comments Dental Cleaning/Exam 1985 HIV Screening 1983 Hepatitis C Screening 1983 Cervical Cancer Screening 1999 Annual Preventive Exam 2001 Hep B Infection Screening - Triple Screen 2001 Hepatitis B Immunization (1 of 3 - 19+ 3-dose series) 2002 Pneumococcal: Ped (0 to 5 Yr s) and At-Risk Member (6 to 64 Yrs) (1 of 2 - PCV) 2002 Tetanus Diphtheria and Pertu ssis Immunization (1 - Tdap) 2002 Breast Cancer Screening 2013 Covid-19 Immunization (1 - 2 024-25 season) 2024 Influenza Immunization (#1) 2025 HIB Immunization Aged Out No longer e ligible based on patient's age to complete this topic HPV Immunization Aged Out No longer e ligible based on patient's age to complete this topic Hepatitis A Immunization Aged Out No longer eligible based on patient's age to complete this topic Polio Immunization Aged Out No longer eligible based on patient's age to complete this topic Varicella Immunization Aged Out No lo nger eligible based on patient's age to complete this topic Insurance OPT OUT NO COPAY NB
[2025-05-13 15:41] VITALS: BP 130/83; PULSE 101; RESP 13; TEMP 37.2; O2SAT 98; BMI 23.6
[2025-05-13] MEDS: IBUPROFEN 400 MG TABLET 800 MG PO (15:43)
[2025-05-13] MEDS: ACETAMINOPHEN 500MG TAB 1000 MG PO (15:44)
[2025-05-13 16:15] VITALS: BP 126/78; PULSE 80; RESP 20; TEMP 36.8; O2SAT 98
== END 2025-05-13 16:18 | disposition home or self-care (01) ==
PROVIDERS: Emergency Provider Emergency Medicine
DX: S62.604A Fracture of unspecified phalanx of right ring finger, initial encounter for closed fracture (principal); F32.A Depression, unspecified; F41.9 Anxiety disorder, unspecified; W20.8XXA Other cause of strike by thrown, projected or falling object, initial encounter
CPT/HCPCS: 73130; 99283

== ENCOUNTER 2025-05-19 10:32 | Outpatient (CLI) | payer SELFPAY ==
[2025-05-19 08:31] VITALS: BMI 24.5
--- OUTSIDE RECORDS SUMMARY | 2025-05-19 10:36 | XMS_ITS | Clinical Summary ---
Author Organization [facility] Address [address] [place] [id number] Phone [email or web address] Care Team Providers Care Vice President Of Software Development Name Role Phone Unavailable Primary Care Provider [...] Health Maintenance Due Date Last Done Comments Cervical Cancer Screening Combo 1983 Dental Cleaning/Exam 1983 HIV Screening 1983 HPV / Cotest 1983 Hepatitis C Screening 1983 Pap Testing 1983 HPV Immunization (1 - 2-dose series) 1994 Annual Preventive Exam 2001 Hep B Infection Screening - Triple Screen 2001 Hepatitis B Immunization (1 of 3 - 19+ 3-dose series) 2002 Pneumococcal: Ped (0 to 5 Yr s) and At-Risk Member (6 to 64 Yrs) (1 of 2 - PCV) 2002 Tetanus Diphtheria and Pertu ssis Immunization (1 - Tdap) 2002 Breast Cancer Screening 2013 Covid-19 Immunization (1 - 2 -25 season) 2024 Influenza Immunization (#1) 2025 HIB [...]
--- OUTSIDE RECORDS SUMMARY | 2025-05-19 10:36 | XMS_ITS | Clinical Summary ---
Author Organization Healthcare Address [address] [place] [address] Care Team Providers Care Construction Economist Name Role Phone Radha Paulino KAI Primary Care Provider Allergies No known active allergies Medications buPROPion [...] often do you attend chur ch or tenriism services? Never 01/22/2023 Do you belong to any clubs o r organizations such as yazidi groups, unions, fraternal or athletic groups, or [...] Recorded Patient Health Questionnaire-2 Score 2 02/21/2023 [facility] - Occupational Stress Questionnaire Answer Date [...] place to sleep or slept in a long-term (including now)? No 01/22/2023 PHQ-9 Answer Date [...] Health Maintenance Due Date Last Done Comments [facility]-/Child/Adol SDOH Screenings 1983 [facility]-Varicella Vaccines (1 of 2 - 13+ 2-dose series) 1996 HPV Vaccines (1 - 3-dose series) 1998 [facility]- SDOH Screenings 2001 [facility]-Adult SDOH Screenings 2001 [facility]-DTaP,Tdap,and Td Vaccines (1 - Tdap) 2002 [facility]-Hepatitis B Vaccines (1 of 3 - 19+ 3-dose series) 2002 [facility]-Depression Screening 02/22/2024 023, 01/22/2023 [id number] Vaccine (3 - 2023- season) 2024 06/10/2021, 05/13/2021 [facility]-Influenza Vaccine (#1) 2025 [facility]-Pap Smear 02/21/2026 02/21/2023 [facility]-Cervical Cancer Screening 02/22/2028 [facility]-HPV/Cotest 02/22/2028 02/21/2023, 02/21/2023 [facility]-Zoster Vaccines (1 of 2) 2033 [...] 3:36 PM EDT) Case Report Cytology Case: [id number] Authorizing Provider: Radha Paulino APRN Collected: 02/21/2023 1536 Ordering Location: [facility] & Received: 02/21/2023 1536 [facility] First Screen: Tamika Schaeffer Specimen: ThinPrep Pap Test, Liquid-Based Cervical/Vaginal, CERVICAL/VAGINAL 02/28/2023 4:03 PM EDT [facility] Interpretation NEGATIVE FOR INTRAEPITHELIAL LESION OR MALIGNANCY 02/28/2023 4:03 PM EDT [facility] at 1603 EDT Specimen Adequacy Satisfactory for evaluation; endocervical/mendoza sformation zone component present. Slide scanned and imaged by ThinPrep Imaging System with manual review of all selected gordon. 02/28/2023 4:03 PM EDT [facility] Cervical cytology is a screening test [...] results is suggested (please call Microbiology at [phone] for results). 02/28/2023 4:03 PM EDT [facility] Menstrual Status Cyclic 02/29/20 4:03 PM EDT [facility] History of Hysterectomy Not Applicable 02/28/2023 4:03 PM EDT [facility] Contraceptive History Not Applicable 02/28/2023 4:03 PM EDT [facility] Screening Type Routine Screen 2022 4:03 PM EDT [facility] High Risk? No 02/28/2023 4:03 PM EDT [facility] HPV Testing Requested? Request HPV Testing Regardless of Pap Test Findings 02/28/2023 4:03 PM EDT [facility] Previous Cancer History No 02/28/2023 4:03 PM EDT [facility] Clinical Information Z12.4 - Encounter for Pap smear of cervix with HPV DNA cotesting [ICD-10-CM] 02/28/2023 4:03 PM EDT [facility] Last Menstrual Period 02/12/2023 02/28/2023 4:03 PM EDT [facility] Swab Vaginal and cervical cytologic material / Unknown Non-blood Collection / Unknown 02/21/2023 3:36 PM EDT 02/21/2023 3:36 PM EDT Radha Paulino APRN LAB CYTOLOGY ORDERABLES Final R esult [facility] [address] [place] [address] * HIV 1 & 2 Antibody/Antigen Screen (01/22/2023 1:18 PM EDT) Pathologist [facility] HIV 1 & 2 Antibody/Antigen Screen Non Reactive Non Reactive 01/22/2023 6:45 PM EDT [facility] Comment:Screening for HIV 1 & 2 antibodies, and P24 antigen is NONREACTIVE. No confirmatory testing is required. Blood Venous blood specimen / Unknown Venipuncture / Unknown 01/22/2023 1:18 PM EDT 01/22/2023 1:18 PM EDT Result [facility] Radha Paulino APRN LAB BLOOD ORDERABLES Final Resu lt Performing Organization Address [facility]/ZIP Co de Phone Number [facility] [address] [place] [address] * Acute Hepatitis Panel (01/22/2023 1:18 PM EDT) Pathologist [facility] Hepatitis B Surf Antigen Negative Negative 01/22/2023 7:10 PM EDT [facility] Hepatitis C Antibody Negative Negative 01/22/2023 7:10 PM EDT [facility] Hepatitis A Antibody IgM Negative Negative 01/22/2023 7:10 PM EDT [facility] Hepatitis B Core Antibody IgM Negative Negative 01/22/2023 7:10 PM EDT [facility] Blood Venous blood specimen / Unknown Venipuncture / Unknown 01/22/2023 1:18 PM EDT 01/22/2023 1:18 PM EDT Radha Paulino APRN LAB BLOOD ORDERABLES Final Resu lt [facility] [address] [place] [address] from Last 3 Months or Most Recently Relevant to Health Maintenance Insurance [employer]IC [employer]CIAL Care Teams Construction Economist Relationship Specialty Start Date End Date Radha Paulino APRN [address] [place] [address] PCP - General Family Medicine 01/22/23
--- OUTSIDE RECORDS SUMMARY | 2025-05-19 10:36 | XMS_ITS | Encounter Summary ---
Author Organization Healthcare Address [address] [place] [address] Care Team Providers Care Circus Roustabout Name Role Phone Radha Paulino APRN Primary Care Provider [phone] Encounter Details Date Type Department Care Team (Late st Contact Info) Description 01/22/2023 Outside Procedure External Location [address] [place] [address] Radha Paulino APRN [address] [place] [address] Social History Tobacco Use Types [...] often do you attend chur ch or baptism services? Never 01/22/2023 Do you belong to any clubs o r organizations such as bahai groups, unions, fraternal or athletic groups, or [...] Recorded Patient Health Questionnaire-2 Score 2 01/22/2023 [facility] - Occupational Stress Questionnaire Answer Date Recorded [...] place to sleep or slept in a [place] health care facility (including now)? No 01/22/2023 PHQ-9 Answer Date [...] PM EDT Narrative 01/22/2023 3:01 [place] [address] Name: LIZZIE WILL Exam Date: 01/22/2023 : [...] Thank you for referring LIZZIE WILL to [facility]. Legally authenticated by POPE WM Pringle 2023-01-22 14:49:52 Procedure Note Provider, Zoran Wingina - 01/22/2023 [place] [address] Name: LIZZIE WILL Exam Date: 01/22/2023 : [...] 01/22/2023 Thank you for referring CURRENTLIZZIE to [facility]. Legally authenticated by POPE [facility] Pringle [...] documented as of this encounter Care Teams Circus Roustabout Relationship Specialty Start Date End Date Radha Paulino APRN [address] [place] [address] PCP - General Family Medicine 01/22/23 documented as of this encounter
--- NOTE | 2025-05-19 10:41 | XR_ITS ---
FINAL REPORT CLINICAL HISTORY: pre op surgery, COUGH, SMOKER COMPARISON: 01/07/2024 FINDINGS: 2 views of the chest were obtained . The heart is normal in size. The mediastinum is within normal limits. The lungs are clear. There is no pneumothorax. Osseous structures are unremarkable. IMPRESSION: No acute cardiopulmonary process. Reviewed, Interpreted and Dictated by Eliezer Garces MD Transcribed by Елена Young Authenticated and [facility]
--- NOTE | 2025-05-19 10:58 | ECG_ITS ---
APPROVED REPORT Exam: Resting ECG HR:68 bpm ECG Measurements Heart Rate 68 AXES RI 105 P 28 QRSd 80 QRS 66 QT 380 T 61 QTc 397 Conclusion SINUS RHYTHM WITH SHORT RI INTERVAL BORDERLINE ECG UNCONFIRMED REPORT Electronically signed by : Beck Herrera MD 05/20/2025 08:33:37
[2025-05-19 11:21] LABS: Hematocrit 36.1 % (37.0-47.0); Hemoglobin 12.8 g/dL (12.2-16.2); Immature Granulocytes % 0.2 %; Mean Corpuscular HGB Conc 35.5 g/dL (31.8-35.4); Mean Corpuscular Hemoglobin 30.5 pg (27.0-31.2); Mean Corpuscular Volume 86.2 fl (81-99); Nucleated Red Blood Cells % 0 %; Platelet Count 221 K/mm3 (142-424); Red Blood Count 4.19 M/mm3 (4.20-5.40); Red Cell Distribution Width-SD 37.9 fL; White Blood Count 4.6 K/mm3 (4.8-10.8)
[2025-05-19 11:28] LABS: HCG Qualitative, Serum Negative (Negative)
[2025-05-19 11:30] LABS: Chloride 105 mmol/L (98-107); Potassium 3.5 mmoL/L (3.5-5.1); Sodium 135 mmol/L (136-145)
[2025-05-19 11:33] LABS: Anion Gap 10.5 mEq/L (5-15); Blood Urea Nitrogen 15 mg/dl (7-17); Calcium 9.6 mg/dl (8.4-10.2); Carbon Dioxide 23 mmol/L (22.0-30.0); Creatinine Clearance Estimated 115 mL/min (50-200); Creatinine,Serum 0.60 mg/dl (0.52-1.04); Estimated Glomerular Filt Rate 110 ml/min (>60); GFR (African American) 133 ML/MIN (>60); Glucose 93 mg/dl (74-100)
== END 2025-05-19 23:59 | disposition home or self-care (01) ==
LOC: PREOP 10:33
PROVIDERS: Visit Provider Orthopaedic Surgery
DX: Z01.810 Encounter for preprocedural cardiovascular examination (principal); Z01.811 Encounter for preprocedural respiratory examination; Z01.812 Encounter for preprocedural laboratory examination; R94.31 Abnormal electrocardiogram [ECG] [EKG]; R05.9 Cough, unspecified; F17.200 Nicotine dependence, unspecified, uncomplicated
CPT/HCPCS: 71046; 80048; 84703; 85025; 93005

== ENCOUNTER 2025-05-20 11:04 | Day surgery (SDC) | payer SELFPAY ==
[2025-05-19 12:23] VITALS: BMI 24.5
[2025-05-20] VITALS (9 sets, daily range): BP systolic 107–151; BP diastolic 62–87; PULSE 61–106; RESP 16–22; TEMP 36.4–36.8; O2SAT 95–100
--- NOTE | 2025-05-20 | XR_ITS ---
FINAL REPORT CLINICAL HISTORY: ORIF IN OR 0.7 min 0.48 mGy FINDINGS: 2 fluoroscopic spot films were obtained demonstrating ORIF of a left finger. 0.7 minutes of fluoroscopy time was reported. 0.48 mGy. IMPRESSION: 0.7 minutes of fluoroscopy time was reported. 0.48 mGy. Reviewed, Interpreted and Dictated by Eliezer Garces MD Transcribed by Елена Young Authenticated and [facility]
--- NOTE | 2025-05-20 13:01 | P.PNANES_ITS ---
[facility] Disclaimer: The information contained in this section may have been updated after the patient was seen, as this information can be updated by other users. Medical History Dyspnea on exertion History of smoking 10-25 pack years COPD (chronic obstructive pulmonary disease) Family history of transposition of great arteries Abnormal EKG Palpitations Restless sleeper Daytime somnolence Family history of heart disease Tobacco dependence syndrome History of COVID-19 Dyspnea Depression Anxiety Surgical History H/O tubal ligation Family History Other Anemia Cancer Coronary artery disease Heart attack Hyperlipidemia Hypertension Substance abuse Social History (Updated 05/19/25 @ 11:01 by Elgin Dailey RN) Smoking Status: Former smoker tobacco type: cigarettes packs per day: 1 smoking status stop date: stopped 3 weels ago alcohol intake: never substance use type: denies use current occupational status: unemployed Travel in the last 8 weeks?: None household members: spouse and family housing: house Have you lived/traveled outside US in past 30 days?: No Contact w/someone who lives/traveled outside US past 30 days?: No Exposure to someone with infectious disease in past 14 days?: No Do you have a fever (greater than 100.4 F or 38 C)?: No Have you tested positive for COVID-19?: No Exposed to someone with COVID-19 in past 14 days?: No Do you have a sore throat?: No Do you have a cough?: No Do you have any weakness?: No Do you have any diarrhea?: No Are you experiencing any unusual bleeding?: No Do you have any muscle aches/pain?: No Do you have any abdominal pain?: No Are you experiencing loss of taste or smell?: No [facility] Anesthesia Checklist Patient Identification Patient Identification: Arm Band Structural Data Admitted From: Home Planned Operative Procedure/s: ORIF Left 4th Middle Phalanx Consent for Planned Operative Procedure(s) Verified: Yes Verified Documents: Surgical Consent and History and Physical NPO Status Verified Time NPO: 00:00 Additional verifications Anesthesia Reactions: No Hx Blood Transfusions: No Blood Transfusion Reaction: No Airway Assessment Mallampati Score:: Class II C-Spine Mobility Assessed: Yes TMJ Mobility Assessed: Yes Dentition: Poor Dentition Neurological Assessment Level of Consciousness: Awake, Alert and Appropriate Anesthesia Plan Anesthesia Risk discussed: Yes Anesthesia Plan: Verified ASA Class: II Anesthesia Type: General
[2025-05-20] MEDS: BUPIVACAINE 0.5% 30ML VIAL 150 MG (13:51)
--- NOTE | 2025-05-20 16:13 | EXP.ANES.I ---
[facility] Anesthesia Record Part I Anesthesia Record I Intake, IV Amount: 1,800 Hydration: Adequate Estimated blood loss (mL): 0 Urine output (mL): 0 Blood Products used (#): none Blood Pressure: 107/62 SaO2: 96 Pulse Rate: 100 Airway Patency: Patent Respiratory Rate: 22 Temperature: 98.3 F Patient is:: Drowsy and Stable Stable to PACU at:: 17:07
--- NOTE | 2025-05-20 16:16 | P.OP_ITS ---
Date of procedure: 05/20/25 Pre-op Diagnosis:: Left middle phalanx fracture ring finger Post-op Diagnosis:: Same Procedure performed:: Open reduction internal fixation left middle phalanx fracture ring finger Surgeon:: Martín Hansen DO It Technician(s):: Edwin DOYLE TOOL MAKER APPRENTICE:: Ervin Denny Anesthesia: GETA Estimated blood loss (mL): 0 Operative findings:: Severely comminuted displaced fracture middle phalanx ring finger left side Operative note:: Patient identified preoperatively. Left ring finger marked with yes my initial. [facility] operative suite placed upon operating bed. General anesthesia administered airway secured. Left upper extremity prepped and draped normal sterile fashion. Once prepped and draped final operative timeout performed to identify proper patient procedure and extremity. Everyone involved the case agreed no count indication beginning. She did receive preoperative antibiotics. Marking pen was used to armand plan incision over the dorsal aspect middle phalanx ring finger left hand. Esmarch was used to exsanguinate extremity pneumatic tourniquet inflated to 2 to 50 mmHg. Skin knife is used to incise through skin careful dissection was taken down to identify extensor tendon over the middle phalanx it was protected with retractors to identify the fracture site there is a comminuted fracture of the middle phalanx. With the assistance of a Burnet elevator and dental pick reduction performed with rotational movement and traction this was primarily held with a [id number] clamp. There was severe comminution of the fragments and the smaller fragments would not allow for placement of lag screws. K wire was placed for pulmonary fixation and then a K wire was placed from proximal to distal through the proximal fragment through the distal fragment. An additional K wire was placed through the distal phalanx through the DIP into the middle phalanx to hold length and create rotational stability. Irrigation of the wound was performed skin was closed with 4-0 nylon stitch sterile dressing placed with the pins cut outside the skin and a well- padded ulnar gutter splint patient waken anesthesia taken recovery stable condition. Condition: stable Disposition: PACU Complications:: None apparent
[2025-05-20] MEDS: MORPHINE 2MG/ML SYRINGE 1 MG IV ×2 (16:28→16:33)
[2025-05-20] MEDS: KETOROLAC 30MG/ML VIAL 30 MG IV (16:35)
[2025-05-20] MEDS: ONDANSETRON 4MG/2ML VIAL 4 MG IV (16:36)
--- NOTE | 2025-05-20 16:57 | SUR.PHASEI ---
MD Hansen at bedside injecting local anesthetic in patient's operative hand for pain control
--- NOTE | 2025-05-22 10:56 | EXP.ANES.II ---
[facility] Anesthesia Record Part II Anesthesia Record Part II Discharge Time: 16:47 Destination: Surgical Day Care (OP Surgery) PACU nurse assessment reviewed?: Yes Patient Condition:: Good Anesthesia Complications:: None Swallowing reflex intact?: Yes Airway Patency: Patent Cyanosis?: No Blood Pressure: 109/87 SaO2: 95 Respiratory Rate: 16 Pulse Rate: 90 Temperature: 97.8 F Mental Status: Alert & Oriented Pain level:: 8 Nausea and/or vomitting:: None Intake, IV Amount: 0 Hydration: Adequate
[2025-05-22 10:57] VITALS: BP 109/87; PULSE 90; RESP 16; TEMP 36.6; O2SAT 95
== END 2025-05-20 17:40 | disposition home or self-care (01) ==
PROVIDERS: Visit Provider Orthopaedic Surgery
PROC: (CPT 26735; principal; 2025-05-20 12:30)
DX: S62.623A Displaced fracture of middle phalanx of left middle finger, initial encounter for closed fracture (principal); J44.9 Chronic obstructive pulmonary disease, unspecified; Z87.891 Personal history of nicotine dependence
CPT/HCPCS: 26735; 73140; 76000; J0665; J0690; J1100; J1885; J2003; J2250; J2270; J2405; J2704; J3010

== ENCOUNTER 2025-06-04 13:20 | Outpatient (CLI) | payer SELFPAY ==
--- NOTE | 2025-06-04 13:22 | XR_ITS ---
FINAL REPORT CLINICAL HISTORY: left hand 4th finger fx. SURGERY X2WKS AGO COMPARISON: 05/13/2025 FINDINGS: LEFT HAND Three views demonstrate that in the interval since the prior examination a K wire now secures the fourth DIP joint, as well as a fracture of the fourth middle phalanx. A splint is now present. Callus formation is now identified. The visualized joint spaces are normally aligned. The soft tissues are unremarkable. IMPRESSION: Postoperative changes as described, with callus formation now identified at the fracture of the fourth middle phalanx. Reviewed, Interpreted and Dictated by Eliezer Garces MD Transcribed by Sonia Talley Authenticated and [facility]
--- OUTSIDE RECORDS SUMMARY | 2025-06-04 13:39 | XMS_ITS | Clinical Summary ---
Author Organization Healthcare Address [address] [place] [address] Care Team Providers Care Hog Slaughterer Name Role Phone Radha Paulino KAI Primary Care Provider [phone] Allergies No known active allergies Medications buPROPion [...] often do you attend chur ch or worship services? Never 01/22/2023 Do you belong to any clubs o r organizations such as latter-day groups, unions, fraternal or athletic groups, or [...] Recorded Patient Health Questionnaire-2 Score 2 02/21/2023 [facility] - Occupational Stress Questionnaire Answer Date Recorded [...] place to sleep or slept in a skilled nursing (including now)? No 01/22/2023 PHQ-9 Answer Date [...] of 2 - 13+ 2-dose series) 1996 [facility]- SDOH Screenings 2001 [facility]-Adult SDOH Screenings 2001 [facility]-DTaP,Tdap,and Td Vaccines (1 - Tdap) 2002 [facility]-Hepatitis B Vaccines (1 of 3 - 19+ 3-dose series) 2002 HPV Vaccines (1 - 3-dose SCDM series) 2010 [facility]-Depression Screening 02/22/2024 023, 01/22/2023 [id number] Vaccine (3 - season) 2024 06/10/2021, 05/13/2021 [facility]-Influenza Vaccine (#1) [...] 3:36 PM EDT) Case Report Cytology Case: [id number] Authorizing Provider: Radha Paulino APRN Collected: 02/21/2023 1536 Ordering Location: [facility] & Received: 02/21/2023 1536 [facility] First Screen: Tamika Schaeffer Specimen: ThinPrep Pap Test, Liquid-Based Cervical/Vaginal, CERVICAL/VAGINAL 02/28/2023 4:[address] [facility] Interpretation NEGATIVE FOR INTRAEPITHELIAL LESION OR MALIGNANCY 02/28/2023 4:[address] [facility] at 1603 EDT Specimen Adequacy Satisfactory for evaluation; endocervical/mendoza sformation zone component present. Slide scanned and imaged by ViaCLIXPrep Imaging System with manual review of all selected gordon. 02/28/2023 4:[address] [facility] Cervical cytology is a screening [...] results is suggested (please call Microbiology at [phone] for results). 02/28/2023 4:[address] [facility] Menstrual Status Cyclic 02/29/20 4:03 PM EDT [facility] History of Hysterectomy Not Applicable 02/28/2023 4:03 PM EDT [facility] Contraceptive History Not Applicable 02/28/2023 4:[address] [facility] Screening Type Routine Screen 2022 4:[address] [facility] High Risk? No 02/28/2023 4:[address] [facility] HPV Testing Requested? Request HPV Testing Regardless of Pap Test Findings 02/28/2023 4:[address] [facility] Previous Cancer History No 02/28/2023 4:[address] [facility] Clinical Information Z12.4 - Encounter for Pap smear of cervix with HPV DNA cotesting [ICD-10-CM] 02/28/2023 4:03 PM EDT [facility] Last Menstrual Period 02/12/2023 02/28/2023 4:[address] [facility] Swab Vaginal and cervical cytologic material / Unknown Non-blood Collection / Unknown 02/21/2023 3:36 PM EDT 02/21/2023 3:36 PM EDT Radha Paulino APRN LAB CYTOLOGY ORDERABLES Final R esult [facility] [address] [place] [address] * HIV 1 & 2 Antibody/Antigen Screen (01/22/2023 1:18 PM EDT) Pathologist [facility] HIV 1 & 2 Antibody/Antigen Screen Non Reactive Non Reactive 01/22/2023 6:[address] [facility] Comment:Screening for HIV 1 & 2 antibodies, and P24 antigen is NONREACTIVE. No confirmatory testing is required. Blood Venous blood specimen / Unknown Venipuncture / Unknown 01/22/2023 1:18 PM EDT 01/22/2023 1:18 PM EDT Result [facility] Radha Paulino APRN LAB BLOOD ORDERABLES Final Resu lt [facility] [address] [place] [address] * Acute Hepatitis Panel (01/22/2023 1:18 PM EDT) Pathologist [facility] Hepatitis B Surf Antigen Negative Negative 01/22/2023 7:[address] [facility] Hepatitis C Antibody Negative Negative 01/22/2023 7:[address] [facility] Hepatitis A Antibody IgM Negative Negative 01/22/2023 7:[address] [facility] Hepatitis B Core Antibody IgM Negative Negative 01/22/2023 7:[address] [facility] Blood Venous blood specimen / Unknown Venipuncture / Unknown 01/22/2023 1:18 PM EDT 01/22/2023 1:18 PM EDT Radha Paulino APRN LAB BLOOD ORDERABLES Final Resu lt [facility] [address] [place] [address] from Last 3 Months or Most Recently Relevant to Health Maintenance Insurance GENERIC COMM[employer]CIAL Care Teams Hog Slaughterer Relationship Specialty Start Date End Date Radha Paulino APRN [address] [address] PCP - General Family Medicine 01/22/23
--- OUTSIDE RECORDS SUMMARY | 2025-06-04 13:39 | XMS_ITS | Clinical Summary ---
Author Organization [facility] Health Address [address] [place] [address] Phone [email or web address] Care Team Providers Care Can Washer Name Role Phone Unavailable Primary Care Provider [...]
--- OUTSIDE RECORDS SUMMARY | 2025-06-04 13:39 | XMS_ITS | Encounter Summary ---
Author Organization Healthcare Address [address] [place] [address] Care Team Providers Care Jig Bore Operator Name Role Phone Radha Paulino APRN Primary Care Provider Encounter Details Date Type Department Care Team (Late st Contact Info) Description 01/22/2023 Outside Procedure External Location [address] [place] [address] Radha Paulino APRN [address] [place] [address] Social History Tobacco Use Types [...] often do you attend chur ch or yarsani services? Never 01/22/2023 Do you belong to any clubs o r organizations such as synagogue groups, unions, fraternal or athletic groups, or [...] Recorded Patient Health Questionnaire-2 Score 2 01/22/2023 [facility] - Occupational Stress Questionnaire Answer Date [...] place to sleep or slept in a long term (including now)? No 01/22/2023 PHQ-9 Answer Date [...] PM EDT Narrative 01/22/2023 3:01 [place] [address] Name: LIZZIE WILL Exam Date: 01/22/2023 : 1985 Age 37 Gender: F Physician: RADHA PAULINO Facility: [facility] Facility HSV: Outpatient Exam: CHEST 2 VIEWS [...] Thank you for referring LIZZIE WILL to [facility]. Legally authenticated by POPE WM Pringle 2023-01-22 14:49:52 Procedure Note Provider, Zoran Davidson - 01/22/2023 [place] [address] Name: LIZZIE WILL Exam Date: 01/22/2023 : 1985 Age 37 Gender: F Physician: RADHA PAULINO Facility: [facility] Facility HSV: Outpatient Exam: CHEST 2 VIEWS [...] 01/22/2023 Thank you for referring CURRENTLIZZIE to [facility]. Legally authenticated by POPE WM [...] documented as of this encounter Care Teams Jig Bore Operator Relationship Specialty Start Date End Date Radha aPulino APRN [address] [place] [address] PCP - General Family Medicine 01/22/23 documented as of this encounter
== END 2025-06-04 23:59 | disposition home or self-care (01) ==
LOC: RAD 13:21
PROVIDERS: Visit Provider Orthopaedic Surgery
DX: S62.605D Fracture of unspecified phalanx of left ring finger, subsequent encounter for fracture with routine healing (principal); Z98.890 Other specified postprocedural states
CPT/HCPCS: 73130

== ENCOUNTER 2025-06-11 12:25 | Outpatient (CLI) | payer SELFPAY ==
--- NOTE | 2025-06-11 12:27 | XR_ITS ---
FINAL REPORT CLINICAL HISTORY: left hand fx COMPARISON: 06/04/2025 FINDINGS: LEFT HAND Three views were obtained. Previously reported plaster cast has been removed. Surgical pins are seen in the fourth finger. Fracture of the middle phalanx fourth finger is unchanged. There is no significant callus formation. No hardware complication is identified. IMPRESSION: Fracture of the fourth middle phalanx is unchanged in appearance. Reviewed, Interpreted and Dictated by Eli Dickens MD Transcribed by Hui Hdez Authenticated and [facility]
--- OUTSIDE RECORDS SUMMARY | 2025-06-11 12:28 | XMS_ITS | Encounter Summary ---
Author Organization Healthcare Address [address] [place] [address] Care Team Providers Care Jute Bag Cutting Machine Operator Name Role Phone Radha Paulino APRN Primary Care Provider Encounter Details Date Type Department Care Team (Late st Contact Info) Description 01/22/2023 Outside Procedure External Location [address] [place] [address] Radha Paulino APRN [address] [place] [address] Social History Tobacco Use Types [...] often do you attend chur ch or jew services? Never 01/22/2023 Do you belong to [...] Recorded Patient Health Questionnaire-2 Score 2 01/22/2023 [facility] - Occupational Stress Questionnaire Answer Date Recorded [...] place to sleep or slept in a group home (including now)? No 01/22/2023 PHQ-9 Answer Date [...] -2 Score 2 01/22/2023 12:46 PM EDT [facility] Bullock * Question Answer Date of Assessment [...] PM EDT Narrative 01/22/2023 3:01 [place] [address] Name: LIZZIE WILL Exam Date: 01/22/2023 : 1985 Age 37 Gender: F Physician: RADHA PAULINO Facility: [facility] Facility HSV: Outpatient Exam: CHEST 2 VIEWS [...] Thank you for referring LIZZIE WILL to [facility]. Legally authenticated by POPE WM Pringle 2023-01-22 14:49:52 Procedure Note Provider, Zoran Paisley - 01/22/2023 [place] [address] Name: LIZZIE WILL Exam Date: 01/22/2023 : 1985 Age 37 Gender: F Physician: RADHA PAULINO Facility: [facility] Facility HSV: Outpatient Exam: CHEST 2 VIEWS [...] 01/22/2023 [facility] Legally authenticated by POPE WM [...] documented as of this encounter Care Teams Jute Bag Cutting Machine Operator Relationship Specialty Start Date End Date Radha Paulino APRN [address] [place] [address] PCP - General Family Medicine 01/22/23 documented as of this encounter
--- OUTSIDE RECORDS SUMMARY | 2025-06-11 12:28 | XMS_ITS | Clinical Summary ---
Author Organization Healthcare Address [address] [place] [address] Care Team Providers Care Supervisor Stage Carpentry Name Role Phone Radha Paulino KAI Primary Care Provider [phone] Allergies No known active allergies Medications buPROPion [...] often do you attend chur ch or lutheran services? Never 01/22/2023 Do you belong to any clubs o r organizations such as restorationist groups, unions, fraternal or athletic groups, or [...] Recorded Patient Health Questionnaire-2 Score 2 02/21/2023 [facility] - Occupational Stress Questionnaire Answer Date [...] series) 2010 [facility]-Depression Screening 02/22/2024 023, 01/22/2023 [id number] Vaccine (3 - season) 2024 06/10/2021, 05/13/2021 [...] 3:36 PM EDT) Case Report Cytology Case: [id number] Authorizing Provider: Radha Paulino APRN Collected: 02/21/2023 1536 Ordering Location: [facility] & Received: 02/21/2023 1536 [facility] First Screen: Tamika Schaeffer Specimen: ThinPrep Pap Test, Liquid-Based Cervical/Vaginal, CERVICAL/VAGINAL 02/28/2023 4:03 PM EDT [facility] Interpretation NEGATIVE FOR INTRAEPITHELIAL LESION OR MALIGNANCY 02/28/2023 4:03 PM EDT [facility] at 1603 EDT Specimen Adequacy Satisfactory for evaluation; endocervical/mendoza sformation zone component present. Slide scanned and imaged by [employer] Imaging System with manual review of all selected gordon. 02/28/2023 4:03 PM EDT [facility] Cervical cytology is a [...] results is suggested (please call Microbiology at [phone] for results). 02/28/2023 4:03 PM EDT [facility] Menstrual Status Cyclic 02/29/20 4:03 PM EDT [facility] History of Hysterectomy Not Applicable 02/28/2023 4:03 PM EDT [facility] Contraceptive History Not Applicable 02/28/2023 4:03 PM EDT [facility] Screening Type Routine Screen 2022 4:03 PM EDT [facility] High Risk? No 02/28/2023 4:03 PM EDT [facility] HPV Testing Requested? Request HPV Testing Regardless of Pap Test Findings 02/28/2023 4:03 PM EDT [facility] Previous Cancer History No 02/28/2023 4:03 PM EDT [facility] Clinical Information Z12.4 - Encounter for Pap smear of cervix with HPV DNA cotesting [ICD-10-CM] 02/28/2023 4:03 PM EDT [facility] Last Menstrual Period 02/12/2023 02/28/2023 4:03 PM EDT [facility] Swab Vaginal and cervical cytologic material / Unknown Non-blood Collection / Unknown 02/21/2023 3:36 PM EDT 02/21/2023 3:36 PM EDT Radha Paulino APRN LAB CYTOLOGY ORDERABLES Final R esult [facility] [address] [place] [address] * HIV 1 & 2 Antibody/Antigen Screen (01/22/2023 1:18 PM EDT) Pathologist [facility] HIV 1 & 2 Antibody/Antigen Screen Non Reactive Non Reactive 01/22/2023 6:45 PM EDT [facility] Comment:Screening for HIV 1 & 2 antibodies, and P24 antigen is NONREACTIVE. No confirmatory testing is required. Blood Venous blood specimen / Unknown Venipuncture / Unknown 01/22/2023 1:18 PM EDT 01/22/2023 1:18 PM EDT Result [facility] Radha Paulino APRN LAB BLOOD ORDERABLES Final Resu lt [facility] [address] [place] [address] * Acute Hepatitis Panel (01/22/2023 1:18 PM EDT) Pathologist [facility] Hepatitis B Surf Antigen Negative Negative 01/22/2023 7:10 PM EDT [facility] Hepatitis C Antibody Negative Negative 01/22/2023 7:10 PM EDT [facility] Hepatitis A Antibody IgM Negative Negative 01/22/2023 7:10 PM EDT [facility] Hepatitis B Core Antibody IgM Negative Negative 01/22/2023 7:10 PM EDT [facility] Blood Venous blood specimen / Unknown Venipuncture / Unknown 01/22/2023 1:18 PM EDT 01/22/2023 1:18 PM EDT Radha Paulino APRN LAB BLOOD ORDERABLES Final Resu lt [facility] [address] [place] [address] from Last 3 Months or Most Recently Relevant to Health Maintenance Insurance [employer] Care Teams Supervisor Stage Carpentry Relationship Specialty Start Date End Date Radha Paulino APRN [address] [place] [address] PCP - General Family Medicine 01/22/23
--- OUTSIDE RECORDS SUMMARY | 2025-06-11 12:28 | XMS_ITS | Clinical Summary ---
Author Organization [facility] Health Address [address] [place] [address] Phone [email or web address] Care Team Providers Care Arson Investigator Name Role Phone Unavailable Primary Care Provider [...]
== END 2025-06-11 23:59 | disposition home or self-care (01) ==
LOC: RAD 12:25
PROVIDERS: PCP Nurse Practitioner Family; Visit Provider Orthopaedic Surgery
DX: S62.625A Displaced fracture of middle phalanx of left ring finger, initial encounter for closed fracture
CPT/HCPCS: 73130

== ENCOUNTER 2025-07-02 11:56 | Outpatient (CLI) | payer SELFPAY ==
--- NOTE | 2025-07-02 11:59 | XR_ITS ---
FINAL REPORT CLINICAL HISTORY: left 4th finger fx COMPARISON: 05/13/2025 FINDINGS: LEFT HAND Three views were obtained. There is a comminuted fracture of the fourth middle phalanx with mild displacement and angulation. There has been interval placement of 2 pins since the prior exam. No callus formation is evident at this time. IMPRESSION: Post-ORIF changes of comminuted fourth middle phalangeal fracture. Reviewed, Interpreted and Dictated by Maximiliano Barrios MD Transcribed by Hui Hdez Authenticated and [facility]
--- OUTSIDE RECORDS SUMMARY | 2025-07-02 12:00 | XMS_ITS | Clinical Summary ---
Author Organization Healthcare Address [address] [place] [address] Care Team Providers Care Screen Printer Name Role Phone Radha Paulino KAI Primary Care Provider [phone] Allergies No known active allergies Medications buPROPion [...] often do you attend chur ch or catholic services? Never 01/22/2023 Do you belong to any clubs o r organizations such as zoroastrian groups, unions, fraternal or athletic groups, or [...] Recorded Patient Health Questionnaire-2 Score 2 02/21/2023 [facility] - Occupational Stress Questionnaire Answer Date Recorded [...] place to sleep or slept in a senior living (including now)? No 01/22/2023 PHQ-9 Answer Date [...] series) 2010 [facility]-Depression Screening 02/22/2024 023, 01/22/2023 [id number] Vaccine (3 - 2024- season) 2025 06/10/2021, 05/13/2021 [facility]-Influenza Vaccine (#1) 2025 [facility]-Pap [...] 3:36 PM EDT) Case Report Cytology Case: [id number] Authorizing Provider: Radha Paulino APRN Collected: 02/21/2023 1536 Ordering Location: [facility] & Received: 02/21/2023 1536 [facility] First Screen: Tamika Schaeffer Specimen: ThinPrep Pap Test, Liquid-Based Cervical/Vaginal, CERVICAL/VAGINAL 02/28/2023 4:03 PM EDT [facility] Interpretation NEGATIVE FOR INTRAEPITHELIAL LESION OR MALIGNANCY 02/28/2023 4:03 PM EDT [facility] at 1603 EDT Specimen Adequacy Satisfactory for evaluation; endocervical/mendoza sformation zone component present. Slide scanned and imaged by [employer]Prep Imaging System with manual review of all selected gordon. 02/28/2023 4:03 PM EDT [facility] Cervical cytology is a screening [...] results is suggested (please call Microbiology at [phone] for results). 02/28/2023 4:03 PM EDT [facility] Menstrual Status Cyclic 02/29/20 4:03 PM EDT [facility] History of Hysterectomy Not Applicable 02/28/2023 4:03 PM EDT [facility] Contraceptive History Not Applicable 02/28/2023 4:03 PM EDT [facility] Screening Type Routine Screen 2022 4:03 PM EDT [facility] High Risk? No 02/28/2023 4:03 PM EDT [facility] HPV Testing Requested? Request HPV Testing Regardless of Pap Test Findings 02/28/2023 4:03 PM EDT [facility] Previous Cancer History No 02/28/2023 4:03 PM EDT [facility] Clinical Information Z12.4 - Encounter for Pap smear of cervix with HPV DNA cotesting [ICD-10-CM] 02/28/2023 4:03 PM EDT [facility] Last Menstrual Period 02/12/2023 02/28/2023 4:03 PM EDT [facility] Swab Vaginal and cervical cytologic material / Unknown Non-blood Collection / Unknown 02/21/2023 3:36 PM EDT 02/21/2023 3:36 PM EDT Radha Paulino APRN LAB CYTOLOGY ORDERABLES Final R esult [facility] [address] [place] [address] * HIV 1 & 2 Antibody/Antigen Screen (01/22/2023 1:18 PM EDT) Pathologist [facility] HIV 1 & 2 Antibody/Antigen Screen Non Reactive Non Reactive 01/22/2023 6:45 PM EDT [facility] Comment:Screening for HIV 1 & 2 antibodies, and P24 antigen is NONREACTIVE. No confirmatory testing is required. Blood Venous blood specimen / Unknown Venipuncture / Unknown 01/22/2023 1:18 PM EDT 01/22/2023 1:18 PM EDT Result [facility] Radha Paulino APRN LAB BLOOD ORDERABLES Final Resu lt [facility] [address] [place] [address] * Acute Hepatitis Panel (01/22/2023 1:18 PM EDT) Pathologist [facility] Hepatitis B Surf Antigen Negative Negative 01/22/2023 7:10 PM EDT [facility] Hepatitis C Antibody Negative Negative 01/22/2023 7:10 PM EDT [facility] Hepatitis A Antibody IgM Negative Negative 01/22/2023 7:10 PM EDT [facility] Hepatitis B Core Antibody IgM Negative Negative 01/22/2023 7:10 PM EDT [facility] Blood Venous blood specimen / Unknown Venipuncture / Unknown 01/22/2023 1:18 PM EDT 01/22/2023 1:18 PM EDT Radha Paulino APRN LAB BLOOD ORDERABLES Final Resu lt [facility] [address] [place] [address] from Last 3 Months or Most Recently Relevant to Health Maintenance [place] [address] Care Teams Screen Printer Relationship Specialty Start Date End Date Radha Paulino APRN [address] [place] [address] PCP - General Family Medicine 01/22/23
--- OUTSIDE RECORDS SUMMARY | 2025-07-02 12:00 | XMS_ITS | Encounter Summary ---
Author Organization Healthcare Address [address] [place] [address] Care Team Providers Care Director Of Aviation Name Role Phone Radha Paulino APRN Primary Care Provider Encounter Details Date Type Department Care Team (Late st Contact Info) Description 01/22/2023 Outside Procedure External Location [address] [place] [address] Radha Paulino APRN [address] [place] [address] Social History Tobacco Use Types [...] any clubs o r organizations such as sabianism groups, unions, fraternal or athletic groups, or [...] Recorded Patient Health Questionnaire-2 Score 2 01/22/2023 [facility] - Occupational Stress Questionnaire Answer Date Recorded [...] place to sleep or slept in a mcc (including now)? No 01/22/2023 PHQ-9 Answer Date [...] PM EDT Narrative 01/22/2023 3:01 [place] [address] Name: LIZZIE WILL Exam Date: 01/22/2023 : 1985 Age 37 Gender: F Physician: RADHA PAULINO Facility: [facility] Facility HSV: Outpatient Exam: CHEST 2 [...] Thank you for referring LIZZIE WILL to [facility]. Legally authenticated by POPE WM Pringle 2023-01-22 14:49:52 Procedure Note Provider, Zoran Tafton - 01/22/2023 [place] [address] Name: LIZZIE WILL Exam Date: 01/22/2023 : 1985 Age 37 Gender: F Physician: RADHA PAULINO Facility: [facility] Facility HSV: Outpatient Exam: CHEST 2 [...] 01/22/2023 Thank you for referring CURRENTLIZZIE to [facility]. Legally authenticated by POPE WM [...] documented as of this encounter Care Teams Director Of Aviation Relationship Specialty Start Date End Date Radha Paulino APRN [address] [place] [address] PCP - General Family Medicine 01/22/23 documented as of this encounter
--- OUTSIDE RECORDS SUMMARY | 2025-07-02 12:00 | XMS_ITS | Clinical Summary ---
Author Organization [facility] Health Address [address] [place] [address] Phone [email or web address] Care Team Providers Care Supervisor Net Making Name Role Phone Unavailable Primary Care Provider [...] Screening 2013 Covid-19 Immunization (1 - 2 25 season) 2025 Influenza Immunization (#1) 2025 HIB Immunization Aged [...]
== END 2025-07-02 23:59 | disposition home or self-care (01) ==
LOC: RAD 11:57
PROVIDERS: Visit Provider Orthopaedic Surgery
DX: S62.625A Displaced fracture of middle phalanx of left ring finger, initial encounter for closed fracture (principal); Z98.890 Other specified postprocedural states
CPT/HCPCS: 73130

== ENCOUNTER 2025-07-27 08:54 | Outpatient (CLI) | payer SELFPAY ==
--- NOTE | 2025-07-27 08:56 | XR_ITS ---
FINAL REPORT CLINICAL HISTORY: Left Hand 4th finger fx COMPARISON: 07/02/2025 FINDINGS: LEFT HAND Three views demonstrate a healed fracture of the fourth middle phalanx. Previously seen surgical pins have been removed. The visualized joint spaces are normally aligned. The soft tissues are unremarkable. IMPRESSION: Interval healing of fourth middle phalanx fracture. Reviewed, Interpreted and Dictated by Eli Dickens MD Transcribed by Елена Young Authenticated and . [facility]
--- OUTSIDE RECORDS SUMMARY | 2025-07-27 09:00 | XMS_ITS | Clinical Summary ---
Author Organization Healthcare Address [address] [place] [address] Care Team Prov[address] Care [address] Driver Name Role Phone Radha Paulino KAI Primary Care Provider [phone] Allergies No known active allergies Medications buPROPion [...] often do you attend chur ch or episcopalian services? Never 01/22/2023 Do you belong to any clubs o r organizations such as scientologist groups, unions, fraternal or athletic groups, or [...] Recorded Patient Health Questionnaire-2 Score 2 02/21/2023 [facility] Occupat ional [facility] - Occupational Stress Questionnaire Answer [...] place to sleep or slept in a penitentiary (including now)? No 01/22/2023 PHQ-9 Answer Date [...] series) 2010 [facility]-Depression Screening 02/22/2024 023, 01/22/2023 [id number] Vaccine (3 - 2024- season) 2025 06/10/2021, [...] 3:36 PM EDT) Case Report Cytology Case: [id number] Authorizing Provider: Radha Paulino APRN Collected: 02/21/2023 1536 Ordering Location: [facility] & Received: 02/21/2023 1536 [facility] First Screen: Tamika Schaeffer Specimen: ThinPrep Pap Test, Liquid-Based Cervical/Vaginal, CERVICAL/VAGINAL 02/28/2023 4:03 PM EDT [facility] Interpretation NEGATIVE FOR INTRAEPITHELIAL LESION OR MALIGNANCY 02/28/2023 4:03 PM EDT [facility] at 1603 EDT Specimen Adequacy Satisfactory for evaluation; endocervical/mendoza sformation zone component present. Slide scanned and imaged by [employer]tersPrep Imaging System with manual review of all selected gordon. 02/28/2023 4:03 PM EDT [facility] Cervical cytology is a screening [...] results is suggested (please call Microbiology at [phone] for results). 02/28/2023 4:03 PM EDT [facility] Menstrual Status Cyclic 02/29/20 4:03 PM EDT [facility] History of Hysterectomy Not Applicable 02/28/2023 4:03 PM EDT [facility] Contraceptive History Not Applicable 02/28/2023 4:03 PM EDT [facility] Screening Type Routine Screen 2022 4:03 PM EDT [facility] High Risk? No 02/28/2023 4:03 PM EDT [facility] HPV Testing Requested? Request HPV Testing Regardless of Pap Test Findings 02/28/2023 4:03 PM EDT [facility] Previous Cancer History No 02/28/2023 4:03 PM EDT [facility] Clinical Information Z12.4 - Encounter for Pap smear of cervix with HPV DNA cotesting [ICD-10-CM] 02/28/2023 4:03 PM EDT [facility] Last Menstrual Period 02/12/2023 02/28/2023 4:03 PM EDT [facility] Swab Vaginal and cervical cytologic material / Unknown Non-blood Collection / Unknown 02/21/2023 3:36 PM EDT 02/21/2023 3:36 PM EDT Radha Paulino APRN LAB CYTOLOGY ORDERABLES Final R esult [facility] [address] [place] [address] * HIV 1 & 2 Antibody/Antigen Screen (01/22/2023 1:18 PM EDT) Pathologist [facility] HIV 1 & 2 Antibody/Antigen Screen Non Reactive Non Reactive 01/22/2023 6:45 PM EDT [facility] Comment:Screening for HIV 1 & 2 antibodies, and P24 antigen is NONREACTIVE. No confirmatory testing is required. Blood Venous blood specimen / Unknown Venipuncture / Unknown 01/22/2023 1:18 PM EDT 01/22/2023 1:18 PM EDT Result [facility] Radha Paulino APRN LAB BLOOD ORDERABLES Final Resu lt [facility] [address] [place] [address] * Acute Hepatitis Panel (01/22/2023 1:18 PM EDT) Pathologist [facility] Hepatitis B Surf Antigen Negative Negative 01/22/2023 7:10 PM EDT [facility] Hepatitis C Antibody Negative Negative 01/22/2023 7:10 PM EDT [facility] Hepatitis A Antibody IgM Negative Negative 01/22/2023 7:10 PM EDT [facility] Hepatitis B Core Antibody IgM Negative Negative 01/22/2023 7:10 PM EDT [facility] Blood Venous blood specimen / Unknown Venipuncture / Unknown 01/22/2023 1:18 PM EDT 01/22/2023 1:18 PM EDT Radha Paulino APRN LAB BLOOD ORDERABLES Final Resu lt [facility] [address] [place] [address] from Last 3 Months or Most Recently Relevant to Health Maintenance Insurance [employer] Care Teams Road Driver Relationship Specialty Start Date End Date Radha Paulino APRN [address] [place] [address] PCP - General Family Medicine 01/22/23
--- OUTSIDE RECORDS SUMMARY | 2025-07-27 09:00 | XMS_ITS | Clinical Summary ---
Author Organization [facility] Health Address [address] [place] [address] Phone [email or web address] Care Team Providers Care Ranch Manager Name Role Phone Unavailable Primary Care Provider [...] of 3 - 19+ 3-dose series) 2002 Pneumococcal Immunization (1 of 2 - PCV) 2002 Tetanus Diphtheria and Pertu ssis Immunization (1 - Tdap) 2002 Breast Cancer Screening 2013 Covid-19 Immunization (1 - 2 season) 2025 Influenza Immunization (#1) 2025 HIB [...]
--- OUTSIDE RECORDS SUMMARY | 2025-07-27 09:00 | XMS_ITS | Encounter Summary ---
Author Organization Healthcare Address [address] [place] [address] Care Team Providers Care Research Software Engineer Name Role Phone Radha Paulino APRN Primary Care Provider Encounter Details Date Type Department Care Team (Late st Contact Info) Description 01/22/2023 Outside Procedure External Location [address] [place] [address] Radha Paulino APRN [address] [place] [address] Social History Tobacco Use Types [...] often do you attend chur ch or holiness services? Never 01/22/2023 Do you belong to any clubs o r organizations such as mu-ism groups, unions, fraternal or athletic groups, or [...] Recorded Patient Health Questionnaire-2 Score 2 01/22/2023 [facility] - Occupational Stress [...] place to sleep or slept in a halfway (including now)? No 01/22/2023 PHQ-9 Answer Date [...] PM EDT Narrative 01/22/2023 3:01 [place] [address] Name: LIZZIE WILL Exam Date: 01/22/2023 : 1985 Age 37 Gender: F Physician: RADHA PAULINO Facility: [facility] Facility HSV: Outpatient Exam: CHEST 2 [...] Thank you for referring LIZZIE WILL to [facility]. Legally authenticated by POPE WM Pringle 2023-01-22 14:49:52 Procedure Note Provider, Zoran [place] - 01/22/2023 [place] [address] Name: LIZZIE WILL Exam Date: 01/22/2023 : 1985 Age 37 Gender: F Physician: RADHA PAULINO Facility: [facility] Facility HSV: Outpatient Exam: CHEST 2 [...] 01/22/2023 Thank you for referring CURRENTLIZZIE to [facility]. Legally authenticated by POPE [...] documented as of this encounter Care Teams Research Software Engineer Relationship Specialty Start Date End Date Radha Paulino APRN [address] [place] [address] PCP - General Family Medicine 01/22/23 documented as of this encounter
== END 2025-07-27 23:59 | disposition home or self-care (01) ==
LOC: RAD 08:55
PROVIDERS: PCP Physician Assistant; Visit Provider Physician Assistant
DX: S62.601D Fracture of unspecified phalanx of left index finger, subsequent encounter for fracture with routine healing (principal); X58.XXXD Exposure to other specified factors, subsequent encounter
CPT/HCPCS: 73130